=== PATIENT | female | born 1965 | race Two or more races ===

== ENCOUNTER 2021-04-08 11:09 | Outpatient (REF) | payer BC, SELFPAY ==
[2021-04-08 13:28] LABS: MANUAL DIFF FLAG NO
[2021-04-08 13:41] LABS: Basophils Absolute Auto 0.1 X10*3/uL (0.0-0.2); Basophils Percent Auto 0.6 % (0-2); Eosinophils Absolute Auto 0.3 X10*3/uL (0.0-0.4); Eosinophils Percent Auto 3.6 % (0-4); Hematocrit 40.9 % (37-47); Hemoglobin 12.9 g/dl (12.0-16.0); Imm Gran Abs Auto 0.02 X10*3/uL (0.00-0.03); Imm Gran Pct Auto 0.2 % (0.0-0.4); Lymphocytes Absolute Auto 2.2 X10*3/uL (1.2-4.9); Lymphocytes Percent Auto 24.6 % (20-40); Mean Corpuscular HGB Conc 31.5 g/dl (31.0-35.0); Mean Corpuscular Hemoglobin 25.7 pg (27.0-33.0); Mean Corpuscular Volume 81.6 fL (80-98); Mean Platelet Volume 10.1 fL (9.4-12.3); Monocytes Absolute Auto 0.4 X10*3/uL (0.1-1.2); Monocytes Percent Auto 4.7 % (2-11); Neutrophils Absolute Auto 5.9 X10*3/uL (2.0-8.3); Neutrophils Percent Auto 66.3 % (45-73); Platelet Count 443 X10*3/uL (160-400); Red Blood Count 5.01 X10*6/uL (4.20-5.50); Red Cell Distribution Width 14.5 % (11.0-16.0); White Blood Count 8.9 X10*3/uL (4.8-10.8)
[2021-04-08 13:44] LABS: Alanine Aminotransferase 13 U/L (0-31); Anion Gap 11 (12-20); Aspartate Amino Transferase 14 U/L (5-31); Blood Urea Nitrogen 8 mg/dL (9-16); Calcium 9.2 mg/dL (8.4-10.2); Carbon Dioxide 27 mmol/L (22-29); Chloride 105 mmol/L (96-108); Cholesterol 146 mg/dL; Estimated Glomerular Filt Rate > 60; Glucose Fasting 122 mg/dL (60-99); HDL Cholesterol 55 mg/dL; Iron 51 mcg/dL (30-160); LDL Cholesterol Calculated 68 mg/dl; Percent Iron Saturation 17 % (15-50); Potassium 4.3 mmol/L (3.3-5.1); Sodium 139 mmol/L (135-145); Total Iron Binding Capacity 301 mcg/dL (228-428); Triglycerides 119 mg/dL; Unsaturated Iron Binding 250 ug/dL
[2021-04-08 13:50] LABS: Creatinine Urine 130.37 mg/dL; Microalbum/Creatinine Ratio Ur 3.8 ug/mg cr
[2021-04-08 14:05] LABS: TSH reflex Free T4 0.11 uIU/mL (0.32-4.0); Vitamin D 25-OH Total 6.9 ng/mL (>30)
[2021-04-08 15:31] LABS: Free T4 (Free Thyroxine) 1.05 ng/dL (0.71-1.85)
== END 2021-04-08 11:10 | disposition home or self-care (01) ==
LOC: HO.HMGCLDS 11:09
PROVIDERS: PCP Internal Medicine; Visit Provider Internal Medicine
DX: I10 Essential (primary) hypertension (principal); E66.9 Obesity, unspecified; E78.00 Pure hypercholesterolemia, unspecified; E11.9 Type 2 diabetes mellitus without complications; D50.9 Iron deficiency anemia, unspecified; R25.1 Tremor, unspecified
CPT/HCPCS: 36415; 80048; 80061; 82043; 82306; 83540; 84439; 84443; 84450; 84460; 85025

== ENCOUNTER 2021-04-11 06:57 | Outpatient (REF) | payer BC, SELFPAY | END 2021-04-11 06:58 | disposition home or self-care (01) | LOC: HO.HMGCLDS 06:57 | PROVIDERS: PCP Internal Medicine; Visit Provider Internal Medicine | DX: Z20.822 Contact with and (suspected) exposure to COVID-19 (principal) | CPT/HCPCS: C9803; U0003; U0005 ==

== ENCOUNTER 2021-06-09 15:37 | Outpatient (REF) | payer BC, SELFPAY ==
--- NOTE | ~2021-06-09 | MM_ITS ---
EXAMINATION: MM SCREENING DIGITAL BREAST TOMOSYNTHESIS, BILATERAL CLINICAL INFORMATION: Screening. Asymptomatic. The lifetime risk of breast cancer based on the Tyrer-Cuzick Model is 11%. COMPARISON: Mammography: 09/03/2018, 03/27/2017 TECHNIQUE: Digital breast tomosynthesis is performed in both the craniocaudal and mediolateral oblique views along with computer-aided detection (CAD). Synthesized 2D images are generated from the tomosynthesis. Additional right MLO view is provided. FINDINGS: There are scattered areas of fibroglandular density (ACR BI-RADS breast composition Category b). There are no significant masses, abnormal calcifications, or other abnormalities. Parenchymal pattern is similar to prior studies. No developing density. No significant changes. The axilla and skin contours are unremarkable. MM/MM tomosynthesis screening BI IMPRESSION: No mammographic evidence of malignancy. ASSESSMENT: BI-RADS 1: Negative RECOMMENDATION: Routine annual mammography screening. This patient's information was entered into a reminder system with a target due date for their next mammogram.
== END 2021-06-09 15:38 | disposition home or self-care (01) ==
LOC: HO.MAMMO 15:37
PROVIDERS: Visit Provider Internal Medicine
DX: Z12.31 Encounter for screening mammogram for malignant neoplasm of breast (principal)
CPT/HCPCS: 77063; 77067

== ENCOUNTER 2021-12-29 13:14 | Outpatient (REF) | payer BC, SELFPAY ==
[2021-12-29 14:17] LABS: Influenza A PCR NEGATIVE (Negative); Influenza B PCR NEGATIVE (Negative); Resp Syncy Virus RNA Qual PCR NEGATIVE (Negative); SARS COV2 PCR INHOUSE NEGATIVE (Negative)
== END 2021-12-29 13:15 | disposition home or self-care (01) ==
LOC: HO.LNP 13:14
PROVIDERS: Visit Provider Physician Assistant Medical
DX: Z20.822 Contact with and (suspected) exposure to COVID-19 (principal); R05.9 Cough, unspecified
CPT/HCPCS: 0241U

== ENCOUNTER 2022-02-27 07:00 | Outpatient (REF) | payer BC, SELFPAY ==
[2022-02-27 12:04] LABS: Alanine Aminotransferase 22 U/L (0-31); Anion Gap 13 (12-20); Aspartate Amino Transferase 17 U/L (5-31); Blood Urea Nitrogen 11 mg/dL (9-16); Calcium 9.2 mg/dL (8.4-10.2); Carbon Dioxide 25 mmol/L (22-29); Chloride 105 mmol/L (96-108); Cholesterol 141 mg/dL; Estimated Glomerular Filt Rate > 60; Glucose Fasting 148 mg/dL (60-99); HDL Cholesterol 48 mg/dL; LDL Cholesterol Calculated 74 mg/dl; Potassium 4.3 mmol/L (3.3-5.1); Sodium 139 mmol/L (135-145); Triglycerides 98 mg/dL
[2022-02-27 12:14] LABS: Vitamin D 25-OH Total 22.4 ng/mL (>30)
[2022-02-27 12:32] LABS: Creatinine Urine 156.81 mg/dL; Microalbum/Creatinine Ratio Ur 8.9 ug/mg cr
== END 2022-02-27 07:01 | disposition home or self-care (01) ==
LOC: HO.HMGCLDS 07:00
PROVIDERS: PCP Internal Medicine; Visit Provider Internal Medicine
DX: E11.65 Type 2 diabetes mellitus with hyperglycemia (principal); E55.9 Vitamin D deficiency, unspecified; E66.9 Obesity, unspecified; I10 Essential (primary) hypertension
CPT/HCPCS: 36415; 80048; 80061; 82043; 82306; 84450; 84460

== ENCOUNTER 2022-06-12 06:56 | Outpatient (REF) | payer BC, SELFPAY ==
[2022-06-12 12:07] LABS: Creatinine Urine 115.02 mg/dL
[2022-06-12 14:09] LABS: Alanine Aminotransferase 24 U/L (0-31); Anion Gap 10 (12-20); Aspartate Amino Transferase 18 U/L (5-31); Blood Urea Nitrogen 10 mg/dL (9-16); Carbon Dioxide 27 mmol/L (22-29); Chloride 108 mmol/L (96-108); Cholesterol 139 mg/dL; Estimated Glomerular Filt Rate > 60; Glucose Fasting 169 mg/dL (60-99); HDL Cholesterol 48 mg/dL; LDL Cholesterol Calculated 71 mg/dl; Potassium 4.1 mmol/L (3.3-5.1); Sodium 141 mmol/L (135-145); Triglycerides 103 mg/dL; Vitamin D 25-OH Total 26.3 ng/mL (>30)
[2022-06-13 05:23] LABS: Estimated Average Glucose 160 mg/dL; Hemoglobin A1c % 7.2 %
== END 2022-06-12 06:57 | disposition home or self-care (01) ==
LOC: HO.HMGCLDS 06:56
PROVIDERS: PCP Internal Medicine; Visit Provider Internal Medicine
DX: E11.65 Type 2 diabetes mellitus with hyperglycemia (principal); E55.9 Vitamin D deficiency, unspecified; E78.00 Pure hypercholesterolemia, unspecified; I10 Essential (primary) hypertension
CPT/HCPCS: 36415; 80048; 80061; 82043; 82306; 83036; 84450; 84460

== ENCOUNTER 2022-07-17 15:10 | Outpatient (REF) | payer BC, SELFPAY ==
--- NOTE | ~2022-07-17 | MM_ITS ---
EXAMINATION: MM SCREENING DIGITAL BREAST TOMOSYNTHESIS, BILATERAL CLINICAL INFORMATION: Screening. Asymptomatic. The lifetime risk of breast cancer based on the Tyrer-Cuzick Model is 9%. COMPARISON: Mammography: 06/09/2021, 07/03/2019, 03/29/2017; outside mammography 12/18/2014 ([facility]). TECHNIQUE: Digital breast tomosynthesis is performed in both the craniocaudal and mediolateral oblique views along with computer-aided detection (CAD). Synthesized 2D images are generated from the tomosynthesis. Additional right MLO view is provided. FINDINGS: There are scattered areas of fibroglandular density (ACR BI-RADS breast composition Category b). Left breast parenchymal pattern is similar to prior studies and there is no interval mass or developing density or architectural abnormality. Neither breast shows abnormal calcifications. The axilla and skin contours are unremarkable. There is parenchymal asymmetry central 9:30 right breast, more conspicuous on current exam, likely related to incompletely compressed glandular tissue and/or summation artifact. Patient will be recalled to obtain additional images to confirm probable chronic stability. MM/MM tomosynthesis screening BI IMPRESSION: Right: -Parenchymal asymmetry central 9:30, more conspicuous on current study. Suspect incompletely compressed glandular tissue and/or summation artifact. Left: -No mammographic evidence of malignancy. ASSESSMENT: BI-RADS 0: Incomplete - Need Additional Imaging Evaluation RECOMMENDATION: 1. Additional views of the right breast (spot CC, spot MLO, standard ML). 2. Targeted ultrasound if warranted after review of the additional views. 3. Radiology department staff will contact the patient for additional imaging. This patient's information was entered into a reminder system with a target due date for their next mammogram.
== END 2022-07-17 15:11 | disposition home or self-care (01) ==
LOC: HO.MAMMO 15:10
PROVIDERS: PCP Internal Medicine; Visit Provider Internal Medicine
DX: Z12.31 Encounter for screening mammogram for malignant neoplasm of breast (principal)
CPT/HCPCS: 77063; 77067

== ENCOUNTER 2022-07-24 08:46 | Outpatient (REF) | payer BC, SELFPAY ==
--- NOTE | ~2022-07-24 | MM_ITS ---
EXAMINATION: MM DIAGNOSTIC DIGITAL BREAST TOMOSYNTHESIS, RIGHT US DIAGNOSTIC ULTRASOUND BREAST, RIGHT CLINICAL INFORMATION: Recall from screening for question of parenchymal asymmetry developing density central 9:30 right breast. COMPARISON: Mammography: 07/17/2022, 06/09/2021, 09/03/2018 TECHNIQUE: Digital breast tomosynthesis is performed. 2D images are generated from the tomosynthesis. The following views are obtained: Spot CC, spot MLO, ML, rolled ML x2. Ultrasound right breast is targeted to the outer breast. Grayscale imaging and color Doppler are performed without and with harmonics. FINDINGS: There are scattered areas of fibroglandular density (ACR BI-RADS breast composition Category b). There are scattered shifting fibroglandular parenchymal densities related to variation in positioning. There is no consistent three dimensional mass, definite developing density, or definite focal parenchymal asymmetric density. No architectural abnormality. Ultrasound right breast demonstrates no cystic or solid mass or architectural abnormality or focal duct ectasia. There is scattered nonfocal shadowing. Results are discussed with the patient at time of visit. There is no reproducible mammographic finding to suggest interval change from prior exams. No focal ultrasound abnormality. As a precaution, short interval six-month follow-up right diagnostic mammography will be requested. MM/MM tomosynthesis added views R IMPRESSION: 1. Additional views show no mass or definite developing density. 2. Unremarkable targeted right breast ultrasound. ASSESSMENT: BI-RADS 3: Probably Benign RECOMMENDATION: Diagnostic right mammography in 6 months. This patient's information was entered into a reminder system with a target due date for their next mammogram.
== END 2022-07-24 08:47 | disposition home or self-care (01) ==
LOC: HO.MAMMO 08:46
PROVIDERS: PCP Internal Medicine; Visit Provider Internal Medicine
DX: R92.2 Inconclusive mammogram (principal)
CPT/HCPCS: 76642; 77061; 77065

== ENCOUNTER 2022-09-11 06:46 | Outpatient (REF) | payer BC, SELFPAY ==
[2022-09-11 11:59] LABS: Alanine Aminotransferase 21 U/L (0-31); Anion Gap 12 (12-20); Aspartate Amino Transferase 16 U/L (5-31); Blood Urea Nitrogen 15 mg/dL (9-16); Calcium 9.2 mg/dL (8.4-10.2); Carbon Dioxide 26 mmol/L (22-29); Chloride 105 mmol/L (96-108); Cholesterol 159 mg/dL; Estimated Glomerular Filt Rate > 60; Glucose Fasting 146 mg/dL (60-99); HDL Cholesterol 53 mg/dL; LDL Cholesterol Calculated 86 mg/dl; Potassium 4.4 mmol/L (3.3-5.1); Sodium 139 mmol/L (135-145); Triglycerides 103 mg/dL
[2022-09-11 12:07] LABS: Estimated Average Glucose 169 mg/dL; Hemoglobin A1c % 7.5 %
[2022-09-11 12:19] LABS: Vitamin D 25-OH Total 17.8 ng/mL (>30)
[2022-09-11 13:35] LABS: Creatinine Urine 96.23 mg/dL; Microalbumin Urine < 5.0 mg/L
== END 2022-09-11 06:47 | disposition home or self-care (01) ==
LOC: HO.HMGCLDS 06:46
PROVIDERS: PCP Internal Medicine; Visit Provider Internal Medicine
DX: E11.65 Type 2 diabetes mellitus with hyperglycemia (principal); E55.9 Vitamin D deficiency, unspecified; I10 Essential (primary) hypertension; E78.00 Pure hypercholesterolemia, unspecified; E66.9 Obesity, unspecified
CPT/HCPCS: 36415; 80048; 80061; 82043; 82306; 83036; 84450; 84460

== ENCOUNTER 2022-12-19 07:17 | Outpatient (REF) | payer BC, SELFPAY ==
[2022-12-19 11:48] LABS: Estimated Average Glucose 137 mg/dL; Hemoglobin A1c % 6.4 %
[2022-12-19 11:50] LABS: Alanine Aminotransferase 81 U/L (0-31); Anion Gap 13 (12-20); Aspartate Amino Transferase 62 U/L (5-31); Blood Urea Nitrogen 10 mg/dL (9-16); Calcium 9.6 mg/dL (8.4-10.2); Carbon Dioxide 26 mmol/L (22-29); Chloride 106 mmol/L (96-108); Cholesterol 134 mg/dL; Estimated Glomerular Filt Rate > 60; Glucose Fasting 136 mg/dL (60-99); HDL Cholesterol 49 mg/dL; LDL Cholesterol Calculated 65 mg/dl; Potassium 4.1 mmol/L (3.3-5.1); Sodium 141 mmol/L (135-145); Triglycerides 100 mg/dL
[2022-12-19 12:13] LABS: Vitamin D 25-OH Total 58.7 ng/mL (>30)
== END 2022-12-19 07:18 | disposition home or self-care (01) ==
LOC: HO.HMGCLDS 07:17
PROVIDERS: PCP Internal Medicine; Visit Provider Internal Medicine
DX: E11.65 Type 2 diabetes mellitus with hyperglycemia (principal); E55.9 Vitamin D deficiency, unspecified; E66.9 Obesity, unspecified; E78.00 Pure hypercholesterolemia, unspecified; I10 Essential (primary) hypertension
CPT/HCPCS: 36415; 80048; 80061; 82306; 83036; 84450; 84460

== ENCOUNTER 2023-05-03 06:52 | Outpatient (REF) | payer BC, SELFPAY ==
[2023-05-03 11:50] LABS: Estimated Average Glucose 148 mg/dL; Hemoglobin A1c % 6.8 % (<6.0)
[2023-05-03 12:05] LABS: Alanine Aminotransferase 15 U/L (0-31); Anion Gap 13 (12-20); Aspartate Amino Transferase 17 U/L (5-31); Blood Urea Nitrogen 11 mg/dL (9-16); Calcium 9.1 mg/dL (8.4-10.2); Carbon Dioxide 24 mmol/L (22-29); Chloride 107 mmol/L (96-108); Cholesterol 141 mg/dL (<200); Estimated Glomerular Filt Rate > 60; Glucose Fasting 129 mg/dL (60-99); HDL Cholesterol 48 mg/dL (>40); LDL Cholesterol Calculated 67 mg/dL (<100); Sodium 140 mmol/L (135-145); Triglycerides 132 mg/dL (<150)
== END 2023-05-03 06:53 | disposition home or self-care (01) ==
LOC: HO.HMGCLDS 06:52
PROVIDERS: PCP Internal Medicine; Visit Provider Internal Medicine
DX: E11.65 Type 2 diabetes mellitus with hyperglycemia (principal); I10 Essential (primary) hypertension; E78.00 Pure hypercholesterolemia, unspecified
CPT/HCPCS: 36415; 80048; 80061; 83036; 84450; 84460

== ENCOUNTER 2023-05-23 14:38 | Outpatient (AMB) | payer BC, SELFPAY ==
[2023-05-23 14:51] VITALS: BP 118/74; PULSE 84; O2SAT 99; BMI 36.0
--- NOTE | 2023-05-23 14:51 | MHC.PC.OV ---
Vital Signs 05/23/23 14:51 Height 5 ft 5 in Weight 216 lb 8 oz BMI 36.0 BP 118/74 Blood Pressure Location Lt brachial Position Sitting Pulse 84 Pulse Source Pulse Oximeter Pulse Oximetry (%) 99 Oxygen Delivery Method Room Air Intake Visit Reasons: Follow-up diabetes mellitus, lipids Intake Note: pt is here to go over her lab results pt would like her flu vaccine but pt is still sick please advise Allergies No Known Allergies [No Known Allergies*] Allergy (Verified 08/15/23 08:49) Medication List - Last Reconciled 05/23/23 by Charisse Portillo MD cholecalciferol (vitamin D3) 1,250 mcg PO QWEEK 3 months clobetasol 0.05% grams topical dapagliflozin propanediol (Farxiga) 10 mg PO QAM lisinopril 2.5 mg PO DAILY metformin 1,000 mg PO BID 90 days semaglutide 0.5 mg (0.374 mL) subcut QWEEK NS simvastatin 5 mg PO QPM Tobacco use date assessed: 05/23/23 Dental Screening Dental Screen Date: 05/23/23 Did you have a dental visit in the last 12 months?: Yes Did you have a dental problem in the last 6 months where you did not have access to dental care?: No Was dental information given to patient?: Patient has dentist HPI Follow-up diabetes mellitus, lipids HPI Details 57-year-old lady here today for follow-up on her diabetes mellitus and hyperlipidemia. Currently taking Farxiga and metformin and was started recently on semaglutide 0.5 mg weekly, in addition to simvastatin 5 mg at bedtime. She has been compliant with taking her medications and has been following recommended diet. Latest fasting labs showed hemoglobin A1c at 6.8%, and fasting lipids are within normal limits. [facility] Medical History (Updated 08/15/23 @ 09:30 by Charisse Portillo MD) Type 2 diabetes mellitus without complication, with no history of insulin use Post-COVID chronic cough History of COVID-19 Right knee pain Lumbago syndrome Androgenetic alopecia Diabetes mellitus with hyperglycemia, without long-term current use of insulin Vitamin D deficiency Essential hypertension Rash of face Iron deficiency anemia Obesity (BMI 30-39.9) Hypercholesterolemia Surgical History Hx of cholecystectomy Hx of tubal ligation Family History Maternal Uncle Substance use disorder Maternal Grandmother Lung cancer Mother CVA (cerebral vascular accident) Social History Housing: House Patient Tobacco Use Status: Never used Tobacco e-Cigarette/Vaping Use: Never Used Second Hand Smoke Exposure: No service: No Current occupational status: employed Cognitive needs: No Hearing needs: No Vision needs: Yes Questionnaire Thrive Questionnaire Date Thrive assessed: 09/12/22 OMKAR-7 AMB Questionnaire OMKAR-7 Date OMKAR - 7 assessed: 09/12/22 Source: Developed by Drs. Hernan Barraza, Lina Chavarria, Brandon Prince and colleagues, with an educational sandra from [employer]. Review of Systems Const Denies body aches, Denies fever(s), Denies headache(s) and Denies weakness Eyes Details: Up-to-date with her diabetes retinopathy screening, goes [facility] Denies change in vision ENT Denies dizziness, Denies headache(s) and Denies nasal congestion Card Denies chest pain, Denies lightheadedness, Denies palpitations and Denies dyspnea Resp Denies dyspnea GI Denies abdominal pain, Denies change in bowel habits and Denies heartburn Denies urinary frequency, Denies dysuria and Denies urinary urgency Musc Reports no additional complaints Skin/Breast Reports as per HPI Neuro Denies dizziness, Denies headache(s) and Denies weakness Endo Denies palpitations Miki/Lymph Denies easy bruising Aller/Immun Denies seasonal rhinorrhea Physical exam (Primary Care) Vital Signs: Last Vital Signs Pulse 84 05/23/23 14:51 BP 118/74 05/23/23 14:51 Pulse Ox 99 05/23/23 14:51 Oxygen Delivery Method Room Air 05/23/23 14:51 BMI result Body Mass Index 36.0 BMI Assessment/Plan discussion: High BMI High, discussed plan: lifestyle, weight reduction, dietary and physical activity Tobacco/Smoking Status: Tobacco use Status Tobacco use date assessed 05/23/23 05/23/23 14:59 Patient Tobacco Use Status Never used Tobacco 05/23/23 14:51 e-Cigarette/Vaping Use Never Used 05/23/23 14:51 Thrive Assessment: Date of Thrive Assessment Date Thrive assessed 09/12/22 05/23/23 14:51 Const General: comfortable and no acute distress Orientation/consciousness: patient oriented x3 Limitations: no limitations HENMT Ears: hearing grossly normal bilaterally, external ears normal, TM's normal bilaterally and EAC's normal General nose exam: Normal external nose present and No nasal discharge present Mouth: oropharynx normal and moist mucous membranes Eyes General: appearance normal, both eyes and all related structures Conjunctivae: conjunctivae normal Pupils: Equal, round and reactive pupils present EOM: EOMs intact bilaterally Neck Neck: Yes full ROM, Yes no lymphadenopathy and Yes supple Resp Effort & Inspection: normal respiratory effort and able to speak in complete sentences Auscultation: clear to auscultation bilaterally Cardio Rate: regular rate Rhythm: regular rhythm Heart sounds: S1 normal heart sound present and S2 normal heart sound present GI Inspection: Yes normal to inspection Palpation (GI): Soft to palpation, nontender and no masses Auscultation: normal bowel sounds Neuro General: patient oriented x3, gait normal, tone normal, moves all extremities, Normal light touch and pain sensation and no focal motor deficits Cranial nerves: Yes Equal, round and reactive pupils present Cognition (Neuro): normal cognition Gait exam (Neuro): Normal gait present Motor exam (neuro): 5/5 motor strength present throughout Extrem Other: Slight puffiness over right lateral malleolus, nontender General: Yes full ROM, Yes no calf tenderness and Yes normal gait Right lower extremity: knee (Positive crepitus right knee) Details: normal ROM and other Office Procedures Flu Questionnaire Does the patient have a severe egg allergy?: No Does the patient have severe life threatening allergies?: No Does the patient have a fever or illness today?: No Has the patient ever had Guillain-Laclede Syndrome?: No Has the patient ever had any past reaction to a flu shot?: No Immunizations flu vacc [id number] 6mos up(PF) 60 mcg(15 mcgx4)/0.5 mL IM syringe Performing Provider: Charisse Portillo MD Performing Location: [facility] [place] [facility] Administered by: Anna Munoz CMA on 05/23/23 15:43 Dose Route Admin Location Dispensed Lot Number Expiration Date NDC Provider Scribe 0.5 mL IM Left Deltoid 0.5 mL [id number] 01/05/24 49623-829-20 [employer] VIS Given Date VIS Provided VIS Publication Date 05/23/23 Single Vaccine 21 Eligibility Eligibility Date Funding Source Not VFC Eligible 05/23/23 Private Results Reviewed Results Reviewed: NTERED: 05/03/23-[address]: ORDERED: Met Prof Fast, AST, ALT, Lipid Panel Test Result Flag Reference Site Sodium 140 135-145 mmol/L Potassium 4.0 3.3-5.1 mmol/L CL 107 96-108 mmol/L CO2 24 22-29 mmol/L Gap 13 12-20 BUN 11 9-16 mg/dL Creat 0.75 0.5-1.4 mg/dL EGFR > 60 NOTE: For -Turkmen individuals, multiply the result by 1.210. Chronic Kidney Disease: Estimated GFR < 60 mL/min/1.73m2 Severe Kidney Disease: Estimated GFR < 15 mL/min/1.73m2 FBS 129 H 60-99 mg/dL A fasting glucose of 126 mg/dl or greater on more than one occasion is considered diagnostic of diabetes. CA 9.1 8.4-10.2 mg/dL AST (GOT) 17 5-31 U/L ALT (GPT) 15 0-31 U/L Triglyceride 132 <150 mg/dL Desirable Triglyceride: less than 150 mg/dL Borderline High Triglyceride 150-199 mg/dL High Triglyceride: 200-499 mg/dL Very High Triglyceride: greater than or equal to 5OO mg/dL Cholesterol 141 <200 mg/dL Desirable Cholesterol: less than 200 mg/dL Borderline High Cholesterol: 200-239 mg/dL High Cholesterol: greater than 239 mg/dL LDL Calculated 67 <100 mg/dL Desirable LDL: less than 100 mg/dL Near Optimal/Above Optimal LDL: 110-129 mg/dL Borderline High LDL: 130-159 mg/dL High LDL: 160-189 mg/dL Very High LDL: greater than or equal to 190 mg/dL HDL 48 >40 mg/dL Desirable HDL: greater than 40 mg/dL Note: This HDL assay may give artificially low results in patients with liver disease. Laboratory Tests 05/03/23 06:58 Estimat Average Glucose 148 Hemoglobin A1c % 6.8 H Assessment and Plan Assessment & Plan (1) Type 2 diabetes mellitus without complication, with no history of insulin use: Code(s): E11.9 - Type 2 diabetes mellitus without complications Plan: Recent lab results reviewed with patient, with sugar and hemoglobin A1c stable and at goal at 6.3%. Will continue on present treatment and advised to continue checking fasting blood sugar at home at least once a day., maintain log and bring to next appointment for review. Reinforced diabetic diet and regular exercise with patient. Counseled regarding importance of yearly diabetes retinopathy screening, currently up-to-date. Patient advised to inspect feet daily, for any signs of injury, callus or infection. Compliance with diet and regular exercise again stressed. Blood pressure goal is less than 130/80, goal LDL is less than 100 and goal hemoglobin A1c is less than 7% follow-up appointment made in-3--months, after fasting labs done. (2) Hypercholesterolemia: Code(s): E78.00 - Pure hypercholesterolemia, unspecified Plan: Reviewed recent fasting lipid profile with patient with levels within normal limits . Continue with simvastatin 5 mg at bedtime , in addition to adherence to low-cholesterol diet and regular exercise, at least 30 minutes 3 to 4 times a week. Advised patient to make healthy food choices, eat more fruits, vegetables, whole grains, wild caught fish and low-fat dairy. Limit amount of meat and fried or fatty food products, as well as processed foods and fast foods. Follow-up scheduled with repeat fasting lipid panel in 3 months. (3) Essential hypertension: Code(s): I10 - Essential (primary) hypertension Plan: Blood pressure at goal of less than 130/80. Continue with current medication. Reinforced importance of following a low sodium diet, getting regular exercise, and lowering stress levels. (4) Obesity (BMI 30-39.9): Code(s): E66.9 - Obesity, unspecified Plan: Discussed need to increase activity and weight reduction. Currently on semaglutide with no significant weight loss seen. Eat slowly, pay attention to portion sizes, plan your meals ahead of time, start regular physical activity, at least 150 minutes of moderate intensity exercise, or 90 minutes per week of vigorous exercise. Keeping a food diary, tracking what you eat and your physical activity can help assess what improvements you can make. There are many health problems associated with being overweight/obese, so it is important to improve your diet and exercise. (5) Needs flu shot: Code(s): Z23 - Encounter for immunization Plan: Flu vaccine given today Orders: Orders Lipid Panel 08/04/23 E11.9 - Type 2 diabetes mellitus without complications, E55.9 - Vitamin D deficiency, unspecified, I10 - Essential (primary) hypertension, E66.9 - Obesity, unspecified, E78.00 - Pure hypercholesterolemia, unspecified Aspartate Amino Transferase 08/04/23 E11.9 - Type 2 diabetes mellitus without complications, E55.9 - Vitamin D deficiency, unspecified, I10 - Essential (primary) hypertension, E66.9 - Obesity, unspecified, E78.00 - Pure hypercholesterolemia, unspecified Basic Metabolic Panel Fasting 08/04/23 E11.9 - Type 2 diabetes mellitus without complications, E55.9 - Vitamin D deficiency, unspecified, I10 - Essential (primary) hypertension, E66.9 - Obesity, unspecified, E78.00 - Pure hypercholesterolemia, unspecified Vitamin D 25-OH Total 08/04/23 E11.9 - Type 2 diabetes mellitus without complications, E55.9 - Vitamin D deficiency, unspecified, I10 - Essential (primary) hypertension, E66.9 - Obesity, unspecified, E78.00 - Pure hypercholesterolemia, unspecified Hemoglobin A1c 08/04/23 E11.9 - Type 2 diabetes mellitus without complications, E55.9 - Vitamin D deficiency, unspecified, I10 - Essential (primary) hypertension, E66.9 - Obesity, unspecified, E78.00 - Pure hypercholesterolemia, unspecified Alanine Aminotransferase 08/04/23 E11.9 - Type 2 diabetes mellitus without complications, E55.9 - Vitamin D deficiency, unspecified, I10 - Essential (primary) hypertension, E66.9 - Obesity, unspecified, E78.00 - Pure hypercholesterolemia, unspecified Influenza [id number] Immunization 05/23/23 Z23 - Encounter for immunization Medications: Changed From metformin call to schedule PCP appt for more refills 1,000 mg PO BID 90 days 180 tabs 3RF To metformin call to schedule PCP appt for more refills 1,000 mg PO BID 180 tabs 3RF 90 days From semaglutide 0.5 mg (0.374 mL) subcut QWEEK 4.5 mL 1RF NS E11.9 - Type 2 diabetes mellitus without complications To semaglutide 0.5 mg (0.374 mL) subcut QWEEK 6 mL 3RF 30 days NS E11.9 - Type 2 diabetes mellitus without complications Refilled simvastatin 5 mg PO QPM 90 tabs 3RF dapagliflozin propanediol (Farxiga) 10 mg PO QAM 90 tabs 3RF E11.65 - Type 2 diabetes mellitus with hyperglycemia lisinopril 2.5 mg PO DAILY 90 tabs 3RF Coding Level of Care Code Est Pt Level 4 (75021) Diagnoses Type 2 diabetes mellitus without complication, with no history of insulin use E11.9 Hypercholesterolemia E78.00 Essential hypertension I10 Obesity (BMI 30-39.9) E66.9 Needs flu shot Z23
== END 2023-05-23 15:50 | disposition home or self-care (01) ==
PROVIDERS: PCP Internal Medicine; Visit Provider Internal Medicine
DX: E11.9 Type 2 diabetes mellitus without complications (principal); E66.9 Obesity, unspecified; Z68.36 Body mass index [BMI] 36.0-36.9, adult; Z23 Encounter for immunization; E78.00 Pure hypercholesterolemia, unspecified; I10 Essential (primary) hypertension
CPT/HCPCS: 90471; 90686; 99214

== ENCOUNTER 2023-08-15 08:26 | Outpatient (AMB) | payer BC, SELFPAY ==
[2023-08-15 08:35] VITALS: BP 118/70; PULSE 73; O2SAT 97; BMI 36.1
--- NOTE | 2023-08-15 08:35 | MHC.PC.OV ---
Vital Signs 08/15/23 08:35 Height 5 ft 5 in Weight 217 lb BMI 36.1 BP 118/70 Blood Pressure Location Lt brachial Position Sitting Pulse 73 Pulse Source Pulse Oximeter Pulse Oximetry (%) 97 Oxygen Delivery Method Room Air Intake Visit Reasons: Annual PE Intake Note: Pt is here today for her PE: Last mammogram 07/24/22, cologuard 06/04/22: pt states had a papsmear last year at [facility] Allergies No Known Allergies [No Known Allergies*] Allergy (Verified 08/15/23 08:49) Medication List - Last Reconciled 08/15/23 by Charisse Portillo MD cholecalciferol (vitamin D3) 1,250 mcg PO QWEEK 3 months clobetasol 0.05% grams topical dapagliflozin propanediol (Farxiga) 10 mg PO QAM lisinopril 2.5 mg PO DAILY metformin 1,000 mg PO BID 90 days semaglutide 0.5 mg (0.374 mL) subcut QWEEK 30 days NS simvastatin 5 mg PO QPM Tobacco use date assessed: 08/15/23 Dental Screening Dental Screen Date: 08/15/23 Did you have a dental visit in the last 12 months?: Yes Did you have a dental problem in the last 6 months where you did not have access to dental care?: No Was dental information given to patient?: Patient has dentist HPI Annual PE HPI Details 57-year-old lady here today for physical exam. She had her last mammogram a year ago, and had Cologuard testing done in 2021 with negative findings. Patient also had her last Pap smear done at [facility] a year ago. She has hypertension, currently stable and controlled on lisinopril 2.5 mg daily. Has diabetes mellitus currently on Farxiga, metformin and Ozempic. Hemoglobin A1c today is 7.1%. Patient states that she has been compliant with taking her medications, and has been following recommended diet but admits to not getting much exercise this past few months. She is up-to-date with her diabetes retinopathy screening , goes to [facility] eye care . Takes simvastatin for hyperlipidemia Complains of intermittent pain and stiffness in left upper back radiating to left shoulder . Has been applying warm compresses, which affords only temporary relief.. [facility] Medical History (Updated 08/15/23 @ 09:30 by Charisse Portillo MD) Type 2 diabetes mellitus without complication, with no history of insulin use Post-COVID chronic cough History of COVID-19 Right knee pain Lumbago syndrome Androgenetic alopecia Diabetes mellitus with hyperglycemia, without long-term current use of insulin Vitamin D deficiency Essential hypertension Rash of face Iron deficiency anemia Obesity (BMI 30-39.9) Hypercholesterolemia Surgical History Hx of cholecystectomy Hx of tubal ligation Family History Maternal Uncle Substance use disorder Maternal Grandmother Lung cancer Mother CVA (cerebral vascular accident) Social History Housing: House Patient Tobacco Use Status: Never used Tobacco e-Cigarette/Vaping Use: Never Used Second Hand Smoke Exposure: No service: No Current occupational status: employed Cognitive needs: No Hearing needs: No Vision needs: Yes Questionnaire PHQ-9 Over the last 2 weeks, how often have you been bothered by any of the following problems? 1. Little interest or pleasure in doing things: not at all 2. Feeling down, depressed, or hopeless: not at all 3. Trouble falling or staying asleep, or sleeping too much: not at all 4. Feeling tired or having little energy: not at all 5. Poor appetite or overeating: not at all 6. Feeling bad about yourself - or that you are a failure or have let yourself or your family down: not at all 7. Trouble concentrating on things, such as reading the newspaper or watching television: not at all 8. Moving or speaking so slowly that other people could have noticed. Or the opposite - being so fidgety or restless that you have been moving around a lot more than usual: not at all 9. Thoughts that you would be better off or of hurting yourself in some way: not at all Total score: 0 Depression Screening Interpretation: Negative Depression Screening Done: Yes 35168 - PHQ-9 Billing: Yes Source: Developed by Drs. Hernan Barraza, Lina Chavarria, Brandon Prince and colleagues, with an educational sandra from [employer]. Thrive Questionnaire Date Thrive assessed: 08/15/23 I am a: Patient What is your living situation today?: I have a steady place to live Within the past 12 months, did the food you bought not last and you didn't have the money to get more?: I choose not to answer this question Within the past 12 months, did you worry whether your food would run out before you got money to buy more?: I choose not to answer this question Do you have trouble paying for medicines?: I choose not to answer this question Do you have trouble getting transportation to medical appointments?: No Do you have trouble paying your heating and electricity bill?: I choose not to answer this question Do you have trouble taking care of your child, family member or friend?: I choose not to answer this question Do you have trouble with day-to-day activities such as bathing, preparing meals, shopping, managing finances, etc.?: No Are you currently unemployed and looking for a job?: No Are you interested in more education?: No THRIVE Score: 0 AUDIT C Alcohol Use Questionnaire (AUDIT-C) 1. How often do you have a drink containing alcohol?: Monthly or less 2. How many drinks containing alcohol do you have on a typical day when you are drinking?: 1 or 2 3. How often do you have six or more drinks on one occasion?: Never Total Score: 1 OMKAR-7 AMB Questionnaire OMKAR-7 Date OMKAR - 7 assessed: 08/15/23 Feeling nervous, anxious, or on edge: 0 = Not at all Not being able to stop or control worryin = Not at all Worrying too much about different things: 0 = Not at all Trouble relaxin = Several days Being so restless that it is hard to sit still: 0 = Not at all Becoming easily annoyed or irritable: 1 = Several days Feeling afraid as if something awful might happen: 0 = Not at all Total OMKAR-7 score (0-4 normal; 5-9 mild; 10-14 moderate; 15-21 severe): 2 Source: Developed by Drs. Hernan Barraza, Lina Chavarria, Brandon Prince and colleagues, with an educational sandra from [employer]. OMKAR-7 Assessment Billing OMKAR-7 Assessment Tool: OMKAR-7 Assessment 74207 Review of Systems Const Denies fever(s), Denies headache(s) and Denies weakness Eyes Details: Up-to-date with her diabetes retinopathy screening, goes to [facility] Denies change in vision ENT Denies dizziness, Denies headache(s) and Denies nasal congestion Card Denies chest pain, Denies lightheadedness, Denies palpitations and Denies dyspnea Resp Denies dyspnea GI Denies abdominal pain, Denies change in bowel habits and Denies heartburn Denies urinary frequency, Denies nipple discharge, Denies dysuria and Denies urinary urgency Musc Reports as per HPI Skin/Breast Denies breast pain, Denies breast mass, Reports alopecia (Currently sees Dr. Leonard) and Denies nipple discharge Neuro Denies dizziness, Denies headache(s) and Denies weakness Psych Reports no additional complaints Endo Denies palpitations Miki/Lymph Denies easy bruising Aller/Immun Denies seasonal rhinorrhea Physical exam (Primary Care) Vital Signs: Last Vital Signs Pulse 73 08/15/23 08:35 BP 118/70 08/15/23 08:35 Pulse Ox 97 08/15/23 08:35 Oxygen Delivery Method Room Air 08/15/23 08:35 BMI result Body Mass Index 36.1 BMI Assessment/Plan discussion: High BMI High, discussed plan: lifestyle, weight reduction, dietary and physical activity Tobacco/Smoking Status: Tobacco use Status Tobacco use date assessed 08/15/23 08/15/23 08:36 Patient Tobacco Use Status Never used Tobacco 08/15/23 08:36 e-Cigarette/Vaping Use Never Used 08/15/23 08:36 PHQ-9: PHQ-9 Score PHQ-9: Total score 0 08/15/23 08:51 Depression Screening Interpretation: Negative Thrive Assessment: Date of Thrive Assessment Date Thrive assessed 08/15/23 08/15/23 08:43 Const General: comfortable and no acute distress Orientation/consciousness: patient oriented x3 HENMT Ears: hearing grossly normal bilaterally, external ears normal, TM's normal bilaterally and EAC's normal General nose exam: Normal external nose present and No nasal discharge present Mouth: oropharynx normal and moist mucous membranes Eyes General: appearance normal, both eyes and all related structures Conjunctivae: conjunctivae normal Pupils: Equal, round and reactive pupils present EOM: EOMs intact bilaterally Neck Neck: Yes full ROM, Yes no lymphadenopathy and Yes supple Chest Breast/axilla palpation: normal palpation of the breasts Resp Effort & Inspection: normal respiratory effort and able to speak in complete sentences Auscultation: clear to auscultation bilaterally Cardio Rate: regular rate Rhythm: regular rhythm Heart sounds: S1 normal heart sound present and S2 normal heart sound present GI Inspection: Yes normal to inspection Palpation (GI): Soft to palpation, nontender and no masses Auscultation: normal bowel sounds Back/Spine/Pelvis Other: Slight tenderness on palpation over left upper back and over left trapezius, no mass palpated Skin General skin exam: no rashes or lesions noted Neuro General: patient oriented x3, gait normal, tone normal, moves all extremities, Normal light touch and pain sensation and no focal motor deficits Cranial nerves: Yes Equal, round and reactive pupils present Cognition (Neuro): normal cognition Gait exam (Neuro): Normal gait present Motor exam (neuro): 5/5 motor strength present throughout Extrem General: Yes full ROM, Yes no calf tenderness and Yes normal gait Right lower extremity: knee (Positive crepitus right knee) Details: normal ROM and other Psych Appearance: grossly normal and well kempt Mental Status: mental status grossly normal Speech and movement: Normal speech and movement present Affect: normal affect Thought process: Normal thought process present Results AMB Hemoglobin A1c AMB Hemoglobin A1c 7.1 % Last Edit by Anusha Vargas CMA on 08/15/23 09:11 Assessment and Plan Assessment & Plan (1) Annual visit for general adult medical examination with abnormal findings: Code(s): Z00.01 - Encounter for general adult medical examination with abnormal findings Plan: Will check appropriate labs. Recommended dental visit every 6 months and regular eye exams, once a year, currently up-to-date. Take adequate calcium in diet and vitamin-D 3 at 2000 IU per cap once a day, in addition to weight-bearing exercises to help maintain good muscle tone and weight control. Instructed to do self-breast exam, and continue with yearly mammogram, currently up-to-date goes to [facility], goes to [facility] also for her routine Pap and pelvic exam, currently up-to-date has had COVID vaccines in the past, up-to-date with her flu shot, does not want to get any further COVID booster, reminded to get her 2nd dose of shingles vaccine. Reminded to get pneumonia vaccine. Had Cologuard testing done in 2021 with negative findings repeat in 2024 (2) Muscle strain of left upper back: Code(s): S29.012A - Strain of muscle and tendon of back wall of thorax, initial encounter Qualifiers: Encounter type: initial encounter Qualified Code(s): S29.012A - Strain of muscle and tendon of back wall of thorax, initial encounter Plan: Prescription sent for cyclobenzaprine 10 mg per tablet to take 1/2-1 tablet at bedtime as needed for painful muscle spasm (3) Type 2 diabetes mellitus without complication, with no history of insulin use: Code(s): E11.9 - Type 2 diabetes mellitus without complications Plan: Hemoglobin A1c today is 7.1%. Increased dose of semaglutide 1 mg subcutaneously given once weekly. Continue with metformin 1000 mg twice a day and Farxiga 10 mg daily in a.m. an hour before eating breakfast. Reinforced importance of following recommended diet and getting regular exercise, goes to [facility] for her routine eye exam yearly, sees Dr. Victoriayeericka for her diabetic foot exam yearly. Reminded to get her pneumonia vaccine, 2nd dose of shingles vaccine gets yearly flu shot, does not want to get COVID boosters (4) Androgenetic alopecia: Comment: sees Dr Leonard Code(s): L64.9 - Androgenic alopecia, unspecified Plan: Followed by Dr Leonard, was taking minoxidil (5) Essential hypertension: Code(s): I10 - Essential (primary) hypertension Plan: Blood pressure at goal of less than 130/80. Continue with current medication. Reinforced importance of following a low sodium diet, getting regular exercise, and lowering stress levels. (6) Obesity (BMI 30-39.9): Code(s): E66.9 - Obesity, unspecified Plan: Continue with healthy eating habits and advised to get regular exercise (7) Hypercholesterolemia: Code(s): E78.00 - Pure hypercholesterolemia, unspecified Plan: Fasting lipid panel ordered, continue with simvastatin 5 mg at bedtime Orders: Orders AMB Hemoglobin A1c Today E11.9 - Type 2 diabetes mellitus without complications Medications: New cyclobenzaprine 10 mg PO BEDTIME PRN 30 tabs 0RF muscle spasm Changed From semaglutide 0.5 mg (0.374 mL) subcut QWEEK 30 days 6 mL 3RF NS E11.9 - Type 2 diabetes mellitus without complications To semaglutide 1 mg (0.75 mL) subcut QWEEK 30 days 3.75 mL 3RF E11.9 - Type 2 diabetes mellitus without complications Coding Level of Care Code Est Pt Prev Care 40-64y(47402) Diagnoses Annual visit for general adult medical examination with abnormal findings Z00.01 Muscle strain of left upper back, initial encounter S29.012A Encounter type: initial encounter Type 2 diabetes mellitus without complication, with no history of insulin use E11.9 Androgenetic alopecia L64.9 Essential hypertension I10 Obesity (BMI 30-39.9) E66.9 Hypercholesterolemia E78.00 Additional Codes OMKAR-7 Assessment Billing - OMKAR-7 Assessment Tool: OMKAR-7 Assessment 69155 ([id number])
== END 2023-08-15 09:22 | disposition home or self-care (01) ==
PROVIDERS: PCP Internal Medicine; Visit Provider Internal Medicine
DX: Z00.01 Encounter for general adult medical examination with abnormal findings (principal); E11.9 Type 2 diabetes mellitus without complications; E66.9 Obesity, unspecified; S29.012A Strain of muscle and tendon of back wall of thorax, initial encounter; L64.9 Androgenic alopecia, unspecified; I10 Essential (primary) hypertension; E78.00 Pure hypercholesterolemia, unspecified
CPT/HCPCS: 83036; 99213; 99396

== ENCOUNTER 2023-08-19 06:45 | Outpatient (REF) | payer BC, SELFPAY ==
[2023-08-19 12:18] LABS: Estimated Average Glucose 148 mg/dL; Hemoglobin A1c % 6.8 % (<6.0)
[2023-08-19 13:09] LABS: Alanine Aminotransferase 15 U/L (0-31); Anion Gap 14 (12-20); Aspartate Amino Transferase 13 U/L (5-31); Blood Urea Nitrogen 13 mg/dL (9-16); Calcium 9.3 mg/dL (8.4-10.2); Carbon Dioxide 24 mmol/L (22-29); Chloride 108 mmol/L (96-108); Cholesterol 136 mg/dL (<200); Estimated Glomerular Filt Rate > 60; Glucose Fasting 135 mg/dL (60-99); HDL Cholesterol 53 mg/dL (>40); LDL Cholesterol Calculated 56 mg/dL (<100); Potassium 3.9 mmol/L (3.3-5.1); Sodium 142 mmol/L (135-145); Triglycerides 135 mg/dL (<150); Vitamin D 25-OH Total 27.6 ng/mL (>30)
== END 2023-08-19 06:46 | disposition home or self-care (01) ==
LOC: HO.HMGCLDS 06:45
PROVIDERS: PCP Internal Medicine; Visit Provider Internal Medicine
DX: E11.9 Type 2 diabetes mellitus without complications (principal); E55.9 Vitamin D deficiency, unspecified; E66.9 Obesity, unspecified; E78.00 Pure hypercholesterolemia, unspecified; I10 Essential (primary) hypertension
CPT/HCPCS: 36415; 80048; 80061; 82306; 83036; 84450; 84460

== ENCOUNTER 2023-10-29 08:03 | Outpatient (AMB) | payer BC, SELFPAY ==
[2023-10-29 08:10] VITALS: BP 130/82; PULSE 94; TEMP 36.8; O2SAT 98; BMI 34.8
--- NOTE | 2023-10-29 08:10 | AM.OFFWIN_ITS ---
Intake Vital Signs 10/29/23 08:10 Height 5 ft 5 in Weight 209 lb BMI 34.8 BP 130/82 Blood Pressure Location Lt brachial Position Sitting Pulse 94 Pulse Source Pulse Oximeter Temp 98.2 F Temp Source Oral Pulse Oximetry (%) 98 Oxygen Delivery Method Room Air Intake Visit Reasons: EP Ears, sore throat, congestion (masked) Intake Note: pt is here for sore throat, and congestion and ear pain Patient Tobacco Use Status: Never used Tobacco Allergies No Known Allergies [No Known Allergies*] Allergy (Verified 10/29/23 08:17) Medication List - Last Reconciled 10/29/23 by RENATA Rosa cholecalciferol (vitamin D3) 1,250 mcg PO QWEEK 3 months cyclobenzaprine 10 mg PO BEDTIME PRN dapagliflozin propanediol (Farxiga) 10 mg PO QAM lisinopril 2.5 mg PO DAILY metformin 1,000 mg PO BID 90 days semaglutide 1 mg (0.75 mL) subcut QWEEK 30 days simvastatin 5 mg PO QPM Do you need a note to return to daycare/school/sports/work: Yes HPI HPI Comments History of Present Illness Details Discharge patient has a 57-year-old female in today with a sick visit. Patient currently offers complaint ear pain, sore throat, cough, chills, chest congestion x4 days. Patient has used [id number] medicine with mild relief. Patient denies sick contacts. Patient denies shortness of breath, chest pain, nausea, vomiting, diarrhea. [facility] Medical History Type 2 diabetes mellitus without complication, with no history of insulin use Post-COVID chronic cough History of COVID-19 Right knee pain Lumbago syndrome Androgenetic alopecia Diabetes mellitus with hyperglycemia, without long-term current use of insulin Vitamin D deficiency Essential hypertension Rash of face Iron deficiency anemia Obesity (BMI 30-39.9) Hypercholesterolemia Surgical History Hx of cholecystectomy Hx of tubal ligation Family History Maternal Uncle Substance use disorder Maternal Grandmother Lung cancer Mother CVA (cerebral vascular accident) Social History Housing: House Patient Tobacco Use Status: Never used Tobacco e-Cigarette/Vaping Use: Never Used Second Hand Smoke Exposure: No service: No Current occupational status: employed Cognitive needs: No Hearing needs: No Vision needs: Yes Review of Systems Const All systems reviewed & are unremarkable except as noted in HPI and below Physical Exam Vital Signs: BMI result Body Mass Index 35.6 Const Other: Appearance: Alert.? Oriented X3.? No acute distress.? Head: Normocephalic, atraumatic Eyes: Pupils equal, round and reactive to light.? ENT: Pharynx erythema, + cobblestoned. No post nasal drip or exudate. TM intact and pearly michael. Neck: Normal inspection.? Neck supple.?Full ROM. CVS: Normal heart rate and rhythm.? Pulses normal.? Respiratory: No respiratory distress.? Breath sounds normal.? Neuro: Oriented X 3.? No motor deficit.? No sensory deficit. CN 2-12 intact Results AMB Rapid Strep AMB Rapid Strep Negative Last Edit by Roger Benson CMA on 10/29/23 08 :26 Assessment & Plan Assessment & Plan (1) Upper respiratory infection: Comment: Patient strep came back negative. Patient's had URI swab. Likely viral in nature. Patient will be given prednisone, albuterol, and benzonatate to be taken as prescribed. Patient has also been educated she can use [id number] medication. Patient has been educated the side effects of t hese medications. Code(s): J06.9 - Acute upper respiratory infection, unspecified Qualifiers: URI type: unspecified URI Qualified Code(s): J06.9 - Acute upper respiratory infection, unspecified Plan: Take your medications as prescribed. If you were prescribed antibiotics today, it is important that you take your medication to their entirety, do not skip any doses, do not finish them early. Follow-up with your primary care provider this week. Return to the emergency department with new or worsening symptoms. Such as fevers, chills, chest pain, shortness of breath, nausea, vomiting, dizziness, headache, vision changes, lethargy In case of emergency call 911 Plan Follow-up with PCP. Patient educated that viral illnesses can take up to 10 days to resolve. Orders: Orders SARS-CoV2/FLU/RSV Today J06.9 - Acute upper respiratory infection, unspecified AMB Rapid Strep Screen Today Z13.9 - Encounter for screening, unspecified Medications: New prednisone 20 mg PO BID 10 tabs 0RF albuterol sulfate 90 mcg/actuation 2 puffs inhalation Q6H PRN 6.7 grams 0RF shortness of breath or wheezing benzonatate 200 mg PO BID PRN 20 caps 0RF cough Coding Level of Care Code Est Pt Level 3 (78380) Diagnoses Upper respiratory tract infection, unspecified type J06.9 URI type: unspecified URI Time Spent (min) 21
== END 2023-10-29 08:35 | disposition home or self-care (01) ==
PROVIDERS: PCP Internal Medicine; Visit Provider Nurse Practitioner Primary Care
DX: J06.9 Acute upper respiratory infection, unspecified (principal); J02.9 Acute pharyngitis, unspecified
CPT/HCPCS: 87880; 99213

== ENCOUNTER 2023-10-29 10:18 | Outpatient (REF) | payer BC, SELFPAY ==
[2023-10-29 11:09] LABS: Influenza A PCR NEGATIVE (Negative); Influenza B PCR NEGATIVE (Negative); Resp Syncy Virus RNA Qual PCR NEGATIVE (Negative); SARS COV2 PCR INHOUSE NEGATIVE (Negative)
== END 2023-10-29 10:19 | disposition home or self-care (01) ==
LOC: HO.HMGCLNP 10:18
PROVIDERS: Visit Provider Nurse Practitioner Primary Care
DX: J06.9 Acute upper respiratory infection, unspecified (principal)
CPT/HCPCS: 0241U

== ENCOUNTER 2023-11-20 06:37 | Outpatient (REF) | payer BC, SELFPAY ==
[2023-11-20 10:35] LABS: Estimated Average Glucose 137 mg/dL; Hemoglobin A1c % 6.4 % (<6.0)
[2023-11-20 10:45] LABS: Alanine Aminotransferase 13 U/L (0-31); Aspartate Amino Transferase 14 U/L (5-31)
[2023-11-20 11:26] LABS: Creatinine Urine 145.49 mg/dL; Microalbum/Creatinine Ratio Ur 10.9 ug/mg cr (<30)
== END 2023-11-20 06:38 | disposition home or self-care (01) ==
LOC: HO.HMGCLDS 06:37
PROVIDERS: PCP Internal Medicine; Visit Provider Internal Medicine
DX: E11.9 Type 2 diabetes mellitus without complications (principal); E55.9 Vitamin D deficiency, unspecified
CPT/HCPCS: 36415; 82043; 82570; 83036; 84450; 84460

== ENCOUNTER 2023-11-21 15:38 | Outpatient (AMB) | payer BC, SELFPAY ==
[2023-11-21 16:16] VITALS: BP 132/80; PULSE 88; O2SAT 98; BMI 35.6
--- NOTE | 2023-11-21 16:16 | A.OFFPC_ITS ---
Vital Signs 11/21/23 16:16 Height 5 ft 5 in Weight 214 lb BMI 35.6 BP 132/80 Blood Pressure Location Rt brachial Position Sitting Pulse 88 Pulse Source Pulse Oximeter Pulse Oximetry (%) 98 Intake Visit Reasons: 3 month follow up Intake Note: pt is here for 3 month follow up Allergies No Known Allergies [No Known Allergies*] Allergy (Verified 11/21/23 16:39) Medication List - Last Reconciled 11/21/23 by Charisse Portillo MD albuterol sulfate 90 mcg/actuation 2 puffs inhalation Q6H PRN benzonatate 200 mg PO BID PRN cholecalciferol (vitamin D3) 1,250 mcg PO QWEEK 3 months cyclobenzaprine 10 mg PO BEDTIME PRN dapagliflozin propanediol (Farxiga) 10 mg PO QAM fexofenadine 60 mg PO Q12H PRN lisinopril 2.5 mg PO DAILY metformin 1,000 mg PO BID 90 days prednisone 20 mg PO BID semaglutide 1 mg (0.75 mL) subcut QWEEK 30 days simvastatin 5 mg PO QPM Tobacco use date assessed: 08/15/23 Dental Screening Dental Screen Date: 08/15/23 HPI 3 month follow up HPI Details 57-year-old lady here today for follow-u p on her diabetes mellitus. She is currently taking metformin a 1000 mg 1 tab twice a day, Farxiga 10 mg daily in a.m. and Ozempic 1 mg Q weekly. Recent labs showed improved hemoglobin A1c at 6.4%. Patient tolerating medication well without any side effects. Still struggling with her appetite, and admits to not getting much exercise lately. Recently seen at the walk-in clinic and treated for an upper respiratory tra ct infection with prednisone, and albuterol inhaler as well as benzonatate capsules. She feels much better but still has a nagging dry cough accompanied by tickle in her throat which makes her cough. [facility] Medical History (Updated 11/21/23 @ 18:10 by Charisse Portillo MD) Vitamin D deficiency Type 2 diabetes mellitus without complication, with no history of insulin use Post-COVID chronic cough History of COVID-19 Right knee pain Lumbago syndrome Androgenetic alopecia Diabetes mellitus with hyperglycemia, without long-term current use of insulin Essential hypertension Rash of face Iron deficiency anemia Obesity (BMI 30-39.9) Hypercholesterolemia Surgical History Hx of cholecystectomy Hx of tubal ligation Family History Maternal Uncle Substance use disorder Maternal Grandmother Lung cancer Mother CVA (cerebral vascular accident) Social History Housing: House Patient Tobacco Use Status: Never used Tobacco e-Cigarette/Vaping Use: Never Used Second Hand Smoke Exposure: No service: No Current occupational status: employed Cognitive needs: No Hearing needs: No Vision needs: Yes Questionnaire Thrive Questionnaire Date Thrive assessed: 08/15/23 OMKAR-7 AMB Questionnaire OMKAR-7 Date OMKAR - 7 assessed: 08/15/23 Source: Developed by Drs. Hernan Barraza, Lina Chavarria, Brandon Prince and colleagues, with an educational sandra from [employer]. Review of Systems Const Denies fever(s), Denies headache(s) and Denies weakness Eyes Details: Up-to-date with her diabetes retinopathy screening, [facility] Denies change in vision ENT Denies dizziness, Denies headache(s) and Denies nasal congestion Card Denies chest pain, Denies lightheadedness, Denies palpitations and Denies dyspnea Resp Reports as per HPI and Denies dyspnea GI Denies abdominal pain, Denies change in bowel habits and Denies heartburn Denies urinary frequency, Denies dysuria and Denies urinary urgency Neuro Denies dizziness, Denies headache(s) and Denies weakness Endo Denies palpitations Physical exam (Primary Care) Vital Signs: Last Vital Signs Pulse 88 11/21/23 16:16 BP 132/80 11/21/23 16:16 Pulse Ox 98 11/21/23 16:16 BMI result Body Mass Index 35.6 BMI Assessment/Plan discussion: High BMI High, discussed plan: lifestyle, weight reduction, dietary and physical activity Tobacco/Smoking Status: Tobacco use Status Tobacco use date assessed 08/15/23 11/21/23 16:18 Patient Tobacco Use Status Never used Tobacco 11/21/23 16:18 e-Cigarette/Vaping Use Never Used 11/21/23 16:18 Thrive Assessment: Date of Thrive Assessment Date Thrive assessed 08/15/23 11/21/23 16:18 Const General: comfortable and no acute distress Orientation/consciousness: patient oriented x3 HENMT Ears: external ears normal, TM's normal bilaterally and EAC's normal General nose exam: Normal external nose present and No nasal discharge present Mouth: oropharynx normal and moist mucous membranes Eyes General: appearance normal, both eyes and all related structures Neck Neck: Yes full ROM, Yes no lymphadenopathy and Yes supple Chest Breast/axilla palpation: normal palpation of the breasts Resp Effort & Inspection: normal respiratory effort and able to speak in complete sentences Auscultation: clear to auscultation bilaterally Cardio Rate: regular rate Rhythm: regular rhythm Heart sounds: S1 normal heart sound present and S2 normal heart sound present GI Inspection: Yes normal to inspection Palpation (GI): Soft to palpation, nontender and no masses Auscultation: normal bowel sounds Skin General skin exam: no rashes or lesions noted Neuro General: patient oriented x3, gait normal, tone normal, moves all extremities, Normal light touch and pain sensation and no focal motor deficits Cognition (Neuro): normal cognition Gait exam (Neuro): Normal gait present Motor exam (neuro): 5/5 motor strength present throughout Extrem General: Yes full ROM, Yes no calf tenderness and Yes normal gait Right lower extremity: knee (Positive crepitus right knee) Details: normal ROM and other Results Reviewed Results Reviewed: Laboratory Tests 11/20/23 06:42 Estimat Average Glucose 137 Hemoglobin A1c % 6.4 H AST 14 ALT 13 Urine Creatinine 145.49 Urine Microalbumin 16.0 Microalb/Creat Ratio 10.9 Assessment and Plan Assessment & Plan (1) Obesity (BMI 30-39.9): Code(s): E66.9 - Obesity, unspecified Plan: Increase dose of Ozempic to 1.7 mg per injection once a week. Continue with adherence to healthy eating habits and start doing at least 30 minutes of regular cardio exercises daily Come in to clinic in 4 weeks after starting new dose to be weighed. (2) Type 2 diabetes mellitus without complication, with no history of insulin use: Code(s): E11.9 - Type 2 diabetes mellitus without complications Plan: Recent lab results reviewed with patient, with sugar and hemoglobin A1c stable and at goal continue to check fasting blood sugar at home, maintain log and bring to next appointment for review. Increase Ozempic dose to 1.7 mg subcutaneously given once weekly, continue with metformin and Farxiga. Reinforced diabetic diet and regular exercise with patient. Counseled regarding importance of yearly diabetes retinopathy screening. Patient advised to inspect feet daily, for any signs of injury, callus or infection. Compliance with diet and regular exercise again stressed. Blood pressure goal is less than 130/80, goal LDL is less than 100 and goal hemoglobin A1c is less than 7% (3) Cough due to bronchospasm: Code(s): J98.01 - Acute bronchospasm Plan: Likely due to environmental and seasonal allergies. Empirically started on fexofenadine 60 mg per tablet to take 1 every 12 hours as needed for itchy throat, nasal congestion and cough. Sample of saline nasal wash given to patient and instructed on proper use Orders: Orders Basic Metabolic Panel Fasting 4 Months E11.9 - Type 2 diabetes mellitus without complications, E55.9 - Vitamin D deficiency, unspecified, E66.9 - Obesity, unspecified, E78.00 - Pure hypercholesterolemia, unspecified, I10 - Essential (primary) hypertension Lipid Panel 4 Months E11.9 - Type 2 diabetes mellitus without complications, E55.9 - Vitamin D deficiency, unspecified, E66.9 - Obesity, unspecified, E78.00 - Pure hypercholesterolemia, unspecified, I10 - Essential (primary) hypertension Hemoglobin A1c 4 Months E11.9 - Type 2 diabetes mellitus without complications, E55.9 - Vitamin D deficiency, unspecified, E66.9 - Obesity, unspecified, E78.00 - Pure hypercholesterolemia, unspecified, I10 - Essential (primary) hypertension Alanine Aminotransferase 4 Months E11.9 - Type 2 diabetes mellitus without complications, E55.9 - Vitamin D deficiency, unspecified, E66.9 - Obesity, unspecified, E78.00 - Pure hypercholesterolemia, unspecified, I10 - Essential (primary) hypertension Aspartate Amino Transferase 4 Months E11.9 - Type 2 diabetes mellitus without complications, E55.9 - Vitamin D deficiency, unspecified, E66.9 - Obesity, unspecified, E78.00 - Pure hypercholesterolemia, unspecified, I10 - Essential (primary) hypertension Vitamin D 25-OH Total 4 Months E11.9 - Type 2 diabetes mellitus without complications, E55.9 - Vitamin D deficiency, unspecified, E66.9 - Obesity, unspecified, E78.00 - Pure hypercholesterolemia, unspecified, I10 - Essential (primary) hypertension Medications: New fexofenadine 60 mg PO Q12H PRN 60 tabs 0RF Allergy symptom semaglutide (weight loss) administer weeks 13 through 16 of therapy 1.7 mg (0.75 mL) subcut QWEEK 30 days 3 mL 0RF E11.9 - Type 2 diabetes mellitus without complications, E66.9 - Obesity, unspecified Refilled benzonatate 200 mg PO BID PRN 20 caps 0RF cough Discontinued semaglutide Discontinued Reason: Doctor's Order 1 mg (0.75 mL) subcut QWEEK 30 days 3.75 mL 3RF E11.9 - Type 2 diabetes mellitus without complications prednisone Discontinued Reason: Patient no longer taking 20 mg PO BID 10 tabs 0RF Coding Level of Care Code Est Pt Level 4 (96073) Diagnoses Obesity (BMI 30-39.9) E66.9 Type 2 diabetes mellitus without complication, with no history of insulin use E11.9 Cough due to bronchospasm J98.01
== END 2023-11-21 17:01 | disposition home or self-care (01) ==
PROVIDERS: PCP Internal Medicine; Visit Provider Internal Medicine
DX: E11.9 Type 2 diabetes mellitus without complications (principal); E66.9 Obesity, unspecified; J98.01 Acute bronchospasm; Z68.35 Body mass index [BMI] 35.0-35.9, adult
CPT/HCPCS: 99214

== ENCOUNTER 2024-05-14 06:49 | Outpatient (REF) | payer BC, SELFPAY ==
[2024-05-14 10:49] LABS: Estimated Average Glucose 157 mg/dL; Hemoglobin A1C 195.6968 umol/L; Hemoglobin A1c % 7.1 % (<6.0); Total Hemoglobin (HGBA1C) 3598.8369 umol/L
[2024-05-14 11:11] LABS: Alanine Aminotransferase 12 U/L (0-31); Anion Gap 13 (12-20); Aspartate Amino Transferase 20 U/L (5-31); Blood Urea Nitrogen 15 mg/dL (9-16); Calcium 9.7 mg/dL (8.4-10.2); Carbon Dioxide 23 mmol/L (22-29); Chloride 106 mmol/L (96-108); Cholesterol 135 mg/dL (<200); Estimated Glomerular Filt Rate > 60; Glucose Fasting 156 mg/dL (60-99); HDL Cholesterol 44 mg/dL (>40); LDL Cholesterol Calculated 62 mg/dL (<100); Potassium 4.7 mmol/L (3.3-5.1); Sodium 137 mmol/L (135-145); Triglycerides 148 mg/dL (<150)
[2024-05-14 11:12] LABS: Vitamin D 25-OH Total 48.6 ng/mL (>30)
== END 2024-05-14 06:50 | disposition home or self-care (01) ==
LOC: HO.HMGCLDS 06:49
PROVIDERS: PCP Internal Medicine; Visit Provider Internal Medicine
DX: E66.9 Obesity, unspecified (principal); E78.00 Pure hypercholesterolemia, unspecified; I10 Essential (primary) hypertension; E55.9 Vitamin D deficiency, unspecified; E11.65 Type 2 diabetes mellitus with hyperglycemia; Z23 Encounter for immunization
CPT/HCPCS: 36415; 80048; 80061; 82306; 83036; 84450; 84460; 90471; 90656

== ENCOUNTER 2024-05-14 15:41 | Outpatient (AMB) | payer BC, SELFPAY ==
[2024-05-14 16:19] VITALS: BP 106/70; PULSE 94; O2SAT 97; BMI 34.8
--- NOTE | 2024-05-14 16:19 | A.OFFPC_ITS ---
Vital Signs 05/14/24 16:19 Height 5 ft 5 in Weight 209 lb BMI 34.8 BP 106/70 Blood Pressure Location Rt brachial Position Sitting Pulse 94 Pulse Source Pulse Oximeter Pulse Oximetry (%) 97 Oxygen Delivery Method Room Air Intake Visit Reasons: f/u weigh in and labs Intake Note: Pt is here today for her weigh in and labs Allergies No Known Allergies [No Known Allergies*] Allergy (Verified 05/14/24 16:28) Medication List - Last Reconciled 05/14/24 by Charisse Portillo MD dapagliflozin propanediol (Farxiga) 10 mg PO QAM lisinopril 2.5 mg PO DAILY metformin 1,000 mg PO BID 90 days minoxidil 1.25 mg PO DAILY simvastatin 5 mg PO QPM spironolactone 25 mg PO BID Wegovy (semaglutide (weight loss)) 0.25 mg (0.5 mL) subcut QWEEK 4 weeks NS Tobacco use date assessed: 05/14/24 Dental Screening Dental Screen Date: 05/14/24 Did you have a dental visit in the last 12 months?: Yes Did you have a dental problem in the last 6 months where you did not have access to dental care?: No Was dental information given to patient?: Patient has dentist HPI f/u weigh in and labs HPI Details 58-year-old lady here today for follow-u p on her diabetes mellitus, hypertension, hyperlipidemia and obesity. She is currently taking metformin a 1000 mg twice a day together with Farxiga 10 mg daily in a.m. and Wegovy 0.25 mg injected weekly. Patient states that she is tolerating this medication well, has lost approximately 5 lb since last visit. She states that she is trying to stick to recommended diet but has not been getting any exercise at all. Her hemoglobin A1c today came back elevated at 7.1 %, but her electrolytes, renal function, fasting lipids and liver enzymes are all within normal limits. [facility] Medical History Diabetes mellitus with hyperglycemia Vitamin D deficiency Type 2 diabetes mellitus without complication, with no history of insulin use Post-COVID chronic cough History of COVID-19 Right knee pain Lumbago syndrome Androgenetic alopecia Diabetes mellitus with hyperglycemia, without long-term current use of insulin Essential hypertension Rash of face Iron deficiency anemia Obesity (BMI 30-39.9) Hypercholesterolemia Surgical History Hx of cholecystectomy Hx of tubal ligation Family History Maternal Uncle Substance use disorder Maternal Grandmother Lung cancer Mother CVA (cerebral vascular accident) Social History Housing: House Patient Tobacco Use Status: Never used Tobacco e-Cigarette/Vaping Use: Never Used Second Hand Smoke Exposure: No service: No Current occupational status: employed Cognitive needs: No Hearing needs: No Vision needs: Yes Questionnaire Thrive Questionnaire Date Thrive assessed: 08/15/23 I am a: Patient What is your living situation today?: I have a steady place to live THRIVE Score: 0 OMKAR-7 AMB Questionnaire OMKAR-7 Date OMKAR - 7 assessed: 08/15/23 Source: Developed by Drs. Hernan Barraza, Lina Chavarria, Brandon Prince and colleagues, with an educational sandra from [employer] Review of Systems Const Denies body aches, Denies fatigue, Denies fever(s), Denies headache(s), Denies weakness and Reports weight loss Eyes Details: Up-to-date with her diabetes retinopathy screening, goes [facility] Denies change in vision ENT Denies dizziness, Denies headache(s) and Denies nasal congestion Card Denies chest pain, Denies lightheadedness, Denies palpitations and Denies dyspnea Resp Reports as per HPI and Denies dyspnea GI Denies abdominal pain, Denies change in bowel habits and Denies heartburn Denies urinary frequency, Denies dysuria and Denies urinary urgency Musc Reports no additional complaints Neuro Denies dizziness, Denies headache(s) and Denies weakness Psych Reports no additional complaints Endo Denies fatigue and Denies palpitations Miki/Lymph Reports no additional complaints Physical exam (Primary Care) Vital Signs: Last Vital Signs Pulse 94 05/14/24 16:19 BP 106/70 05/14/24 16:19 Pulse Ox 97 05/14/24 16:19 Oxygen Delivery Method Room Air 05/14/24 16:19 BMI result Body Mass Index 34.8 Tobacco/Smoking Status: Tobacco use Status Tobacco use date assessed 05/14/24 05/14/24 16:22 Patient Tobacco Use Status Never used Tobacco 05/14/24 16:22 e-Cigarette/Vaping Use Never Used 05/14/24 16:22 Thrive Assessment: Date of Thrive Assessment Date Thrive assessed 08/15/23 05/14/24 16:22 Const General: comfortable and no acute distress Orientation/consciousness: patient oriented x3 HENMT Ears: external ears normal General nose exam: Normal external nose present Eyes General: appearance normal, both eyes and all related structures Neck Neck: Yes full ROM, Yes no lymphadenopathy and Yes supple Resp Effort & Inspection: normal respiratory effort and able to speak in complete sentences Auscultation: clear to auscultation bilaterally Cardio Rate: regular rate Rhythm: regular rhythm Heart sounds: S1 normal heart sound present and S2 normal heart sound present Neuro General: patient oriented x3, gait normal, tone normal, moves all extremities, Normal light touch and pain sensation and no focal motor deficits Extrem General: Yes full ROM, Yes no calf tenderness and Yes normal gait Office Procedures Flu Questionnaire Does the patient have a severe egg allergy?: No Does the patient have severe life threatening allergies?: No Does the patient have a fever or illness today?: No Has the patient ever had Guillain-[place] Syndrome?: No Has the patient ever had any past reaction to a flu shot?: No Immunizations Fluarix Triv 5941-6497 (PF) 45 mcg (15 mcg x 3)/0.5 mL IM syringe Performing Provider: Charisse Portillo MD Performing Location: [facility] Administered by: Anusha Vargas CMA on 05/14/24 17:00 Dose Route Admin Location Dispensed Lot Number Expiration Date [facility] Double Backer 0.5 mL IM Left Deltoid 0.5 mL [id number] 01/04/25 [id number] [employer] VIS Given Date VIS Provided VIS Publication Date 05/14/24 Single Vaccine 21 Eligibility Eligibility Date Funding Source Not [facility] Eligible 05/14/24 Private Results Reviewed Results Reviewed: Laboratory Tests 11/20/23 05/14/24 06:42 07:04 Estimat Average Glucose 157 Hemoglobin A1c % 7.1 H Urine Creatinine 145.49 Urine Microalbumin 16.0 Microalb/Creat Ratio 10.9 Name: Sandra Trejo Age/Sex: 58/F : 1965 Unit#: [id number] Attend Dr: Charisse Portillo MD Re05/14/24 Status: DEP REF Location: [facility] Disch: SPEC : [id number] GINNY: 05/14/24 STATUS: COMP REQ : [id number] RECD: 05/14/24-[address]: Charisse Portillo MD COMP: 05/14/24 ENTERED: 05/14/[address]: ORDERED: Met Prof Fast, AST, ALT, Lipid Panel, Vitamin D 25-OH Test Result Flag Reference Sodium 137 135-145 mmol/L Potassium 4.7 # 3.3-5.1 mmol/L CL 106 96-108 mmol/L CO2 23 22-29 mmol/L Gap 13 12-20 BUN 15 9-16 mg/dL Creat 0.83 0.5-1.4 mg/dL EGFR > 60 NOTE: For -[place] individuals, multiply the result by 1.210. Chronic Kidney Disease: Estimated GFR < 60 mL/min/1.73m2 Severe Kidney Disease: Estimated GFR < 15 mL/min/1.73m2 FBS 156 H 60-99 mg/dL A fasting glucose of 126 mg/dl or greater on more than one occasion is considered diagnostic of diabetes. CA 9.7 8.4-10.2 mg/dL AST (GOT) 20 5-31 U/L ALT (GPT) 12 0-31 U/L Triglyceride 148 <150 mg/dL Desirable Triglyceride: less than 150 mg/dL Borderline High Triglyceride 150-199 mg/dL High Triglyceride: 200-499 mg/dL Very High Triglyceride: greater than or equal to 5OO mg/dL Cholesterol 135 <200 mg/dL Desirable Cholesterol: less than 200 mg/dL Borderline High Cholesterol: 200-239 mg/dL High Cholesterol: greater than 239 mg/dL LDL Calculated 62 <100 mg/dL Desirable LDL: less than 100 mg/dL Near Optimal/Above Optimal LDL: 110-129 mg/dL Borderline High LDL: 130-159 mg/dL High LDL: 160-189 mg/dL Very High LDL: greater than or equal to 190 mg/dL HDL 44 >40 mg/dL Desirable HDL: greater than 40 mg/dL Note: This HDL assay may give artificially low results in patients with liver disease. Vit D 25-OH Tot 48.6 >30 ng/mL Health Based Reference Values* < 20 ng/mL Deficient 20-30 ng/mL Insufficient > 30 ng/mL Sufficient Coding Level of Care Code Est Pt Level 4 (79471) Complex EM visit Add On G2211 Diagnoses Diabetes mellitus with hyperglycemia E11.65 Hypercholesterolemia E78.00 Essential hypertension I10 Vitamin D deficiency E55.9 Assessment & Plan Assessment & Plan (1) Diabetes mellitus with hyperglycemia: Code(s): E11.65 - Type 2 diabetes mellitus with hyperglycemia Category: Medical Plan: Latest hemoglobin A1c has increased from 6 .1 % 6 months ago to 7.1% today. Will continue on same medication of Farxiga 10 mg daily in a.m., metformin 1000 mg twice a day and Wegovy at 0.25 mg injected once weekly. Reinforced importance of following recommended diet and getting regular cardio exercises at least 15-30 minutes daily. Repeat fasting labs again in 3 months. She is up-to-date with her diabetes retinopathy screening. Flu vaccine given today (2) Hypercholesterolemia: Code(s): E78.00 - Pure hypercholesterolemia, unspecified Category: Medical Plan: Fasting lipids are within normal limits, will continue on simvastatin 5 mg at bedtime (3) Essential hypertension: Code(s): I10 - Essential (primary) hypertension Category: Medical Plan: Blood pressure at goal of less than 130/80. Continue with current medication. Reinforced importance of following a low sodium diet, getting regular exercise, and lowering stress levels. (4) Vitamin D deficiency: Code(s): E55.9 - Vitamin D deficiency, unspecified Category: Medical Plan: Her latest vitamin-D levels are now within normal limits. Orders: Orders Lipid Panel 08/08/24 E11.65 - Type 2 diabetes mellitus with hyperglycemia, E55.9 - Vitamin D deficiency, unspecified, E78.00 - Pure hypercholesterolemia, unspecified, I10 - Essential (primary) hypertension Microalbumin, Random (w Creat) 08/08/24 E11.65 - Type 2 diabetes mellitus with hyperglycemia, E55.9 - Vitamin D deficiency, unspecified, E78.00 - Pure hypercholesterolemia, unspecified, I10 - Essential (primary) hypertension Aspartate Amino Transferase 08/08/24 E11.65 - Type 2 diabetes mellitus with hyperglycemia, E55.9 - Vitamin D deficiency, unspecified, E78.00 - Pure hypercholesterolemia, unspecified, I10 - Essential (primary) hypertension Alanine Aminotransferase 08/08/24 E11.65 - Type 2 diabetes mellitus with hyperglycemia, E55.9 - Vitamin D deficiency, unspecified, E78.00 - Pure hypercholesterolemia, unspecified, I10 - Essential (primary) hypertension Hemoglobin A1c 08/08/24 E11.65 - Type 2 diabetes mellitus with hyperglycemia, E55.9 - Vitamin D deficiency, unspecified, E78.00 - Pure hypercholesterolemia, unspecified, I10 - Essential (primary) hypertension Basic Metabolic Panel Fasting 08/08/24 E11.65 - Type 2 diabetes mellitus with hyperglycemia, E55.9 - Vitamin D deficiency, unspecified, E78.00 - Pure hypercholesterolemia, unspecified, I10 - Essential (primary) hypertension Vitamin D 25-OH Total 08/08/24 E11.65 - Type 2 diabetes mellitus with hyperglycemia, E55.9 - Vitamin D deficiency, unspecified, E78.00 - Pure hypercholesterolemia, unspecified, I10 - Essential (primary) hypertension Influenza [id number] Immunization 05/14/24 Z23 - Encounter for immunization
== END 2024-05-14 16:59 | disposition home or self-care (01) ==
LOC: HO.HMCC 15:42
PROVIDERS: PCP Internal Medicine; Visit Provider Internal Medicine
DX: Z23 Encounter for immunization (principal)

== ENCOUNTER 2024-05-21 07:37 | Outpatient (REF) | payer BC, SELFPAY ==
--- NOTE | ~2024-05-21 | FL_ITS ---
EXAMINATION: XR FLUOROSCOPY UPPER GI WITH AIR CLINICAL INFORMATION: Dysphagia COMPARISON: None TECHNIQUE: Fluoroscopic air contrast upper GI examination was performed utilizing standard techniques with thin and thick barium and effervescent granules. Numerous spot images were obtained. FINDINGS: Lateral cine images of the oropharynx and hypopharynx demonstrate normal swallow mechanism with normal epiglottic inversion and soft palate elevation. No tracheal penetration, glottic or subglottic aspiration identified. No nasopharyngeal reflux present. Hypopharyngeal structures appear normal without evidence of mass or diverticulum. There was no significant cricopharyngeal achalasia. Dual and single contrast images of the esophagus demonstrate normal caliber, contour, and mucosal pattern. No evidence of stricture, mass, or ulcerations identified. Esophageal peristalsis is mildly disorganized. A small type I hiatal hernia is present. No significant gastroesophageal reflux was seen during the course of the examination and on reflux views. Dual contrast and single contrast images of the stomach demonstrated a normal contour. The areae gastrica has a thickened/prominent appearance, suggestive gastritis. No masses, or ulcerations are seen. Contrast freely passed into the gastric antrum and duodenal bulb without delay. Single and air-contrast images of the duodenal bulb demonstrate no abnormality. The duodenal sweep has a normal appearance, course, and mucosal fold appearance. There is a small to moderate-sized diverticulum noted in the third segment of duodenum. The imaged proximal jejunum has a normal fold pattern and caliber. FLUOROSCOPY TIME: 4 minutes 36 seconds Number of Spot Images: 8 Number of Cine: 14 DOSE AREA PRODUCT: 2997 uGy-m2 (microgray-meter squared) FL/FL barium swallow IMPRESSION: 1. Mildly disordered esophageal peristalsis. 2. Small type I hiatal hernia 3. The areae gastrica has a thickened/prominent appearance, suggestive gastritis. 4. Small to moderate-sized diverticulum noted in the third segment of the duodenum. This procedure was performed by Chapincito Jamison PA-C, and supervised by Dr. Tipton Electronically signed by: Jerald Tipton MD 05/21/2024 04:52 PM [facility]
== END 2024-05-21 07:38 | disposition home or self-care (01) ==
LOC: HO.XRAY 07:37
PROVIDERS: PCP Internal Medicine; Visit Provider Otolaryngology
DX: R13.10 Dysphagia, unspecified (principal)
CPT/HCPCS: 74220

== ENCOUNTER → 2024-05-21 07:42 | Outpatient (BNV) | payer BC, SELFPAY | PROVIDERS: PCP Internal Medicine; Visit Provider Physician Assistant Surgical | DX: R13.10 Dysphagia, unspecified (principal) | CPT/HCPCS: 74246 ==

== ENCOUNTER 2024-07-25 08:00 | Outpatient (REF) | payer BC, SELFPAY | END 2024-07-25 08:01 | disposition home or self-care (01) | LOC: HO.HMGCLNP 08:00 | PROVIDERS: PCP Internal Medicine; Visit Provider Internal Medicine Gastroenterology | DX: R13.12 Dysphagia, oropharyngeal phase (principal); R93.3 Abnormal findings on diagnostic imaging of other parts of digestive tract | CPT/HCPCS: 87338 ==

== ENCOUNTER 2024-11-05 06:25 | Outpatient (REF) | payer OTHER, SELFPAY ==
--- OUTSIDE RECORDS SUMMARY | 2024-11-05 06:28 | XMS_ITS ---
Author Organization [facility] Address [address] [place] [address] Care Team Providers Care Equities Analyst Name Role Phone Lindsey HACKETT, Charisse Roche Primary Care Provider Un available Smith Giles Unavailable [phone] Encounters Encounter Location Date Provider Diagnosis [address] [phone] 06/18/2023 Smith Giles Plan Of Treatment Next Appt Details Provider Name:Smith Giles , 01/26/2025 03:15:00 PM, [address] [place] [address], [phone], Progress Notes * Sandra TREJODOB:[birth year] (58 yo F)Acc No.[id number]:06/18/2023 Progress Note Patient:?Sandra TREJO Provider:?Smith Giles DPM :1965???Age:57 Y???Sex:Female D ate:06/18/2023 Address:[address] [place] [address] Pcp:Arthur Ross Subjective: * Chief Complaints: * ??? * Medical History:? Objective: * Vitals:? Assessment: Plan: * Treatment: * Images: * The named appointment provid er may or may not be the originator of this progress note, and it is not deemed complete until electronically signed by the appointment provider. Sign off status: Pending * Provider:?Smith Tisha, DPM Date:?2022 Generated for Kevin cantu/Janee/Joby on:?11/05/2024 06:27 AM EDT
--- OUTSIDE RECORDS SUMMARY | 2024-11-05 06:28 | XMS_ITS | Patient Health Record ---
Author Organization [facility] [place] Address [address] [place] [address] Care Team Providers Care Agronomy Supervisor Name Role Phone Lindsey HACKETT, Charisse Roche Primary Care Provider Un available Tisha Smith Unavailable [phone] Allergies No Known Allergies Results Component Value Reference Range Notes HEMOGLOBIN A1C (GLYCOHEMOGLO BIN) Reviewed date:10/27/2024 10:45:17 AM Interpretation: Performing Lab: Notes/Report: HEMOGLOBIN A1C % (HH) 6.8 Reason For Referral No Information Medications Medication SIG (Take, Route, Frequency, Duration) Notes Start Date End Date Status Simvastatin 5 MG 2 tablets in the jaz fuad Orally Once a day Active Vitamin D3 50 MCG (1999 UT) 1 capsule Orally Once a day Active Ozempic Active Lisinopril 2.5 MG 1 tablet Orally Once a day Active metFORMIN HCl 1000 MG 1 tablet with a me al Orally twice a day Active Farxiga 10 MG 1 tablet Orally Once a day Active Ciclopirox 0.77 % 1 application Rice Cleaning Machine Tender ally Twice a day for 365 days Not-Daniel ing Extra Depth Orthopedic Shoes (1 Pair) with Customized Heat Molded Multidensity Innersoles (3 Pair) as directed Dx: NIDDM (E11.9), Hammertoe Foot Deformity (M20.41,M20.42), Preulcerative Skin Lesion(s) (L85.1) 10/27/2024 Active Social History Tobacco Use: Social History Observation Description Date Details (start date - stop date) Never Smoker NA - NA Tobacco use other than smoking: Question Answer Notes Are you an other tobacco user? No Tobacco Control (Standard) Question Answer Notes Tobacco use: Nonsmoker Additional Findings: Tobacco non-user Current no nsmoker AUDIT-C (Standard) Question Answer Notes Did you have a drink containing alcohol in the p ast year? No Points 0 Interpretation Negative Problems Problem Type SNOMED Code ICD Code Onset Dates Problem Status W/U Status Risk Notes Problem Acquired hammer toe of right foot (029620283374597 5) Other hammer toe(s) (acquired), right foot (M20.41) Active confirmed Problem Acquired hammer toe of left foot (789360082748571 3) Other hammer toe(s) (acquired), left foot (M20.42) Active confirmed Problem Type 2 diabetes mellitus without complication (827580454) Type 2 diabetes mellitus without complication (E11.9) Active confirmed Vital Signs Blood pressure diastolic 80 mm Hg 10/27/2024 Height 5 ft 5 in in 10/27/2024 Blood pressure systolic 120 mm Hg 10/27/2024 Weight 204 lbs 10/27/2024 BMI 33.94 kg/m2 10/27/2024 Procedures Procedure Date Ordered Date Performed Result Body Sit e 65067-DFHEBJC NAIL, 6 OR MORE 10/27/2024 N/A Encounters Encounter Location Date Provider Diagnosis [facility] [address] [place] [address] 10/27/2024 Smith Giles Pain in right toe(s) M79.674 ; Tinea unguium B35.1 ; Pain in left toe(s) M79.675 ; Type 2 diabetes mellitus without complication E11.9 ; Other hammer toe(s) (acquired), right foot M20.41 and Other hammer toe(s) (acquired), left foot M20.42 Assessments Encounter Date Diagnosis (ICD Code) Assessment Notes Treatment Notes Treatment Clinical Notes Section Notes 10/27/2024 Pain in right toe(s) (ICD-10 - M79.674) 10/27/2024 Tinea unguium (ICD-10 - B35.1) 10/27/2024 Pain in left toe(s) (ICD-10 - M79.675) 10/27/2024 Type 2 diabetes mellitus without complication (ICD-10 - E11.9) 10/27/2024 Other hammer toe(s) (acquired), right foot (ICD-10 - M20.41) Patient Educated with: DIABETIC FOOT CARE INSTRUCTIONS.p df (DIABETIC FOOT CARE INSTRUCTIONS.p df) 10/27/2024 Other hammer toe(s) (acquired), left foot (ICD-10 - M20.42) Plan Of Treatment Pending Test Test Name Order Date [id number] NAIL, 6 OR MORE 10/27/2024 Next Appt Details Provider Name:Smith Giles , 01/26/2025 03:15:00 PM, [address] [place] [address], [phone], Insurance Providers Payer Name Payer Address Payer Phone Subscriber Number Group Number Insured Name Patient Relationship to Insured Coverage Start Date Coverage End Date [facility] [address] [place] [id number] Varghese Beasley Spouse - patient is the spouse of the insured Medical (General) History Medical History History ICD Code Anxiety Back,Hip,and Knee pain type II diabetes Fibromyalgia Headaches/Migraines High blood pressure Psoriasis/eczema Chicken pox Hypercholesterolemia Surgical History Surgery Date(Month/Year) tubal ligation 06/04/2001
--- OUTSIDE RECORDS SUMMARY | 2024-11-05 06:28 | XMS_ITS ---
Author Organization [facility] Address [address] [place] [address] Care Team Providers Care Rag Production Worker Name Role Phone Lindsey HACKETT, Charisse Roche Primary Care Provider Un available Tisha Smith Unavailable [phone] Allergies No Known Allergies REASON FOR VISIT At Risk Footcare, Painful Nail(s) aggravated by shoes and causing difficulty standing/walking., ToeIrritation Medications Medication SIG (Take, Route, Frequency, Duration) Notes Start Date End Date Status Simvastatin 5 MG 2 tablets in the jaz fuad Orally Once a day Active Vitamin D3 50 MCG (1999 UT) 1 capsule Orally Once a day Active Ozempic Active Ciclopirox 0.77 % 1 application Media Developer ally Twice a day for 365 days Not-Daniel ing Extra Depth Orthopedic Shoes (1 Pair) with Customized Heat Molded Multidensity Innersoles (3 Pair) as directed Dx: NIDDM (E11.9), Hammertoe Foot Deformity (M20.41,M20.42), Preulcerative Skin Lesion(s) (L85.1) 10/27/2024 Active Lisinopril 2.5 MG 1 tablet Orally Once a day Active metFORMIN HCl 1000 MG 1 tablet with a me al Orally twice a day Active Farxiga 10 MG 1 tablet Orally Once a day Active Social History Tobacco Use: Social History [...] Problem Acquired hammer toe of right foot (9083179053308 105) Other hammer toe(s) (acquired), right foot (M20.41) Active confirmed Problem Acquired hammer toe of left foot (4745888270898 103) Other hammer toe(s) (acquired), left foot (M20.42) Active confirmed Vital Signs Height 5 ft 5 in in 10/27/2024 Weight 204 lbs 10/27/2024 BMI 33.94 kg/m2 10/27/2024 Blood pressure systolic 120 mm Hg 10/28/19 25 Blood pressure diastolic 80 mm Hg 025 Procedures Procedure Date Ordered Date Performed Result Body Sit e 80168-MCJZKNY NAIL, 6 OR MORE 10/27/2024 N/A Encounters Encounter Location Date Provider Diagnosis [facility] [address] [address] 10/27/2024 Smith Giles Pain in right toe(s) [...] foot (ICD-10 - M20.42) Plan Of Treatment Medication Medication Name Sig Start Date Stop Date Notes Extra Depth Orthopedic Shoes (1 Pair) with Customized Heat Molded Multidensity Innersoles (3 Pair) as directed Dx: NIDDM (E11.9), Hammertoe Foot Deformity (M20.41,M20.42), Preulcerative Skin Lesion(s) (L85.1) 10/27/2024 Treatment Notes Assessment Notes Other hammer toe(s) (acquired), right fo ot Patient Educated with: DIABETIC FOOT CARE INSTRUCTIONS.pdf (DIABETIC FOOT CARE INSTRUCTIONS.pdf) Pending Test Test Name Order Date [id number] NAIL, 6 OR MORE 10/27/2024 Next Appt Details Follow Up: prn, Reason: Provider Name:Smith Giles , 01/26/2025 03:15:00 PM, [address] [place] [address], [id number], Procedure Notes * Category Sub-Category Detail Notes Debride Nail 6-10 Nail debridement Due to the cl inical pathology outlined in the exam findings, performance of this nail treatment is medically necessary as its management by an unskilled/untrained nonprofessional would put this patients foot and overall health at risk. Therefore, debridement to affected nail(s), as described in exam ( TA, T1, T2, T3, T4, T5, T6, T7, T8, T9 ), was performed exclusively by the physician of record to reduce/remove overall nail length, girth, thickness, subungual debris, and necrotic tissue, by manual and/or electrical means through the use of a nail nipper and/or dremel-type centerless grinder tender, to a more viable healthy nail plate or bed tissue 6-10 nails in total. Silver nitrate was used for any petechial bleeding as necessary. Definitive antifungal treatment options, both pharmaceutical and surgical, have been reviewed and discussed with the patient. The patient solely prefers the use of intermittent/as needed professional debridement services for their nail condition and understands the need for additional periodic treatments to maintain effectiveness in symptomatic relief - 34668 Progress Notes * Sandra TREJODOB:[birth year] (58 yo F)Acc No.[id number]:10/27/2024 Progress Note Patient:?Sandra TREJO Provider:?Smith Giles DPM :1965???Age:58 Y???Sex:Female D ate:10/27/2024 Address:[address] , [facility] Pcp:Arthur Ross Subjective: * Chief Complaints: * ???At Risk FootcarePainful N ail(s) aggravated by shoes and causing difficulty standing/walking.Toe Irritation * HPI: ???At Risk footcare:?Pt States Last PCP Visit:?Date?08/20/2024 ???Toe pain:?Location:?B/L feet.?Duration:?several years.?Course:?worse.?Aggravated by:?shoes, any pressure.?Treatments:?change in shoes.? * ROS:?General/Constitutional:?Nausea?denies.?Vomiting?denies.?Hunger Thirst?denies.?Loss appetite?denies.?Chills?denies.?Fatigue?admits.?Fever?denies.?Night Sweats?denies.?Unexplained weight loss?denies.?Unexplained weight gain?denies.?HEENTM:?Dentures?denies.?Dizziness?denies.?Glasses/contacts?admits.?Retinopathy?den ies.?Blurred/double vision?denies.?TMJ?denies.?Discharge/drainage?denies.?Implants?denies.?Sore throat?denies.?Dental implants?denies.?Hard of hearing ?denies.?Difficulty chewing/swallowing/speaking?denies.?Nose bleeds?denies.?Sore mouth?denies.?Respiratory:?On O xygen?denies.?Pneumonia/pleurisy?denies.?Bronchitis?denies.?Emphysema?denies.?Co ughing?denies.?Cough blood?denies.?Shortness of breath?denies.?Wheezing?denies.?Cardiovascular:?Pacemaker?denies.?MVP?denies.?WPW?denies.?CHF?denies.?Heart attack?denies.?Septal defect?denies.?Rapid beat?denies.?Chest pain ?denies.?Atrial Fib.?denies.?Murmur/Palpitations?denies.?Gastrointestinal:?Hemorrhoids?denies.?Stomach/Abdominal pain?denies.?Dark blood stool?denies.?Irritable bowel ?denies.?Constipation?denies.?Diarrhea?denies.?Hematology:?Swelling?denies.?Clots?denies.?Varicose Veins?denies.?Bruising?denies.?Bleeding problem?denies.?Genitourinary:?Blood urine?denies.?Frequent/Painfu/urination/bladder control?denies.?Kidney stones?denies.?Infection (UTI)?denies.?Nephropathy?denies.?sex trans dis (STD)?denies.?Prostate?denies.?Musculoskeletal:?Hammertoes?admits.?Bunions?denies.?Back Pain?admits.?Muscle Cramps/ Resting?denies.?Muscle cramps / walking?denies.?Generalized aches and pains?admits.?Weakness?denies.?Integ.:?Roth?denies.?Scars?denies.?Corns/calluses?admits.?Ingrown nails?admits.?Painful nails?admits.?Open Sores?denies.?Rashes?denies.?Neurologic:?Difficulty sleeping?denies.?Brain disorder?denies.?Numbness?denies.?Balance t rouble?denies.?Confusion?denies.?Fainting/blackouts?denies.?Tingling?denies.?Damion mors?denies.? * Medical History:? * Surgical History:?tubal liga tion 06/04/2001 * Hospitalization/Major Diagno stic Procedure:?Denies Past Hospitalization * Family History:?Mother: saul taylor, stroke, diagnosed with Diabetic - NIDDM, Unspecified essential hypertension, Unspecified cerebral artery occlusion with cerebral infarction, Family history of arthritis.?Father: , heart attack, diagnosed with Diabetic - NIDDM, Unspecified essential hypertension.?Maternal Grand Mother: diagnosed with Other malignant neoplasm of unspecified site.?Paternal aunt: diagnosed with Other malignant neoplasm of unspecified site.? * Social History:?Tobacco Use:?Tobacco use other than smoking?Are you an other tobacco user??No ?Tobacco Control (Standard)?Tobacco use:?Nonsmoker ?Additional Findings: Tobacco non-user?Current nonsmoker ???Drugs/Alcohol:?Drugs?Have you used drugs other than those for medical reasons in the past 12 months??No ???Miscellaneous:?Caffeine: yes, frequency: 1 cup as day. ?Children: yes. ?Exercise: no. ?Marital status: . ???Drug/Alcohol:?AUDIT-C (Standard)?Did you have a drink containing alcohol in the past year??No ?Points?0 ?Interpretation?Negative * Medications:?TakingFarxiga 1 0 MG Tablet 1 tablet Orally Once a day Lisinopril 2.5 MG Tablet 1 tablet Orally Once a day metFORMIN HCl 1000 MG Tablet 1 tablet with a meal Orally twice a day Ozempic Simvastatin 5 MG Tablet 2 tablets in the evening Orally Once a day Vitamin D3 50 MCG (2000 UT) Capsule 1 capsule Orally Once a day Taking Farxiga 10 MG Tablet 1 tablet Orally Once a day Taking Lisinopril 2.5 MG Tablet 1 tablet Orally Once a day Taking metFORMIN HCl 1000 MG Tablet 1 tablet with a meal Orally twice a day Taking Ozempic Taking Simvastatin 5 MG Tablet 2 tablets in the evening Orally Once a day Taking Vitamin D3 50 MCG (1999) Capsule 1 capsule Orally Once a day Not-Taking/PRNCiclopirox 0.77 % Gel 1 application Externally Twice a day Medication List reviewed and reconciled with the patientNot-Taking/PRN Ciclopirox 0.77 % Gel 1 application Externally Twice a day Medication List reviewed and reconciled with the patient * Allergies:?N.K.D.A.yes[Aller gies Verified] Objective: * Vitals:?Ht:5 ft 5 in, Wt:204 , BMI:33.94, Shoe size:8.5-9, BP:120/80mm Hg, BS:112, Ht-cm: 165.1 cm, Wt-k.53 kg. * ???Past Orders: ???Lab:HEMOGLOBIN A1C (GLYCO HEMOGLOBIN) (Order Date - 08/10/2024) (Collection Date & Time - 10/27/2024 10:43 AM) ? Value Reference Range ?HEMOGLOBIN A1C % (HH) 6.8 * Examination: ???Ophthalmology Referral: ?DIABETES EYE EXAM?Procedure Performed:?Yes ?Date of Exam Performed?08/10/2024 ?Diabetic Retinopathy Screening:?Yes ?Retinal Screening Performed:?Yes ?Findings of Diabetic Eye Exam:?no retinopathy?Nails: ?NAILS are:?Elongated, overgrown, dystrophic, lytic, greater than 3mm thick, discolored and friable with crumbly malodorous subungual debris, with pain on palpation, TA, T1, T2, T3, T4, T5, T6, T7, T8, T9.?Orthopedic: ?MUSCLE STRENGTH:?5/5 all groups in a symmetrical fashion, B/L.?FOOT MORPHOLOGY:?(-) Charcot collapse/destruction noted at MTJ.?DIGITAL DEFORMITIES:?Digital contracture, PIPJ, 2-5 B/L, incompl-reducible to push-up test, no over, nor underlapping,?there is?evidence of shoe producing skin irritation.?FOOTWEAR EVALUATION:?worn, non-supportive, shoe gear properties exacerbate patient's foot/toe deformity.?Dermatologic: ?SKIN FINDINGS:?Skin exam reveals normal texture, elasticity, and turgor. There are no masses. The interspaces are clear, B/L, Skin exam reveals Keratotic lesion(s) located at, Medial plantar, IPJ, TA, Medial plantar, IPJ, T4, Dorsal, PIPJ, T9, Plantar Heel(s), B/L.?Vascular: ?DP PULSES (B):?3/4, B/L.?PT PULSES (B):?3/4, B/L.?CAPILLARY FILL TIME:?immediate, all digits, B/L.?TROPHIC CONDITION-TEXTURE/ELASTICITY/TURGOR/HAIR GROWTH (B):?normal, B/L.?TEMPERTURE GRADIENT (C):?normal, warm to cool, proximal to distal, B/L, B/L.?PIGMENTATION:?normal, B/L.?EDEMA (C):?absent, B/L.?CLAUDICATION (C):?denies, B/L.?REST PAIN:?denies, B/L.?Neurological: ?SENSORY:?Neurological exam reveals intact sensorium, pain sensation normal, vibration sensation intact, pinprick sensation is normal in the lower extremities, 5.07 monofilament test performed at plantar aspects of 5 varied sites per foot shows sensation, normal, B/L, Pt denies, anesthesia, burning, paresthesia, tingling, B/L.?General Examination: ?GENERAL APPEARANCE:?Reveals a pleasant, alert, well nourished, well- developed, well hydrated individual, who demonstrates proper attention to hygiene/body habitus, and is in no acute distress, Pt serves as own historian for office visit today.?ORIENTED:?person, place, and time.?FOOT EXAM:?Lower Extremity Neurological Exam performed:?Yes Date ?Visual exam of foot performed:?Yes ?Date?10/27/2024 ?Footwear Evaluation?Footwear Evaluation performed:?Yes??? Assessment: * Assessment: 1.?Pain in right toe(s) - M7 9.674???2.?Tinea unguium - B35.1 (Primary)???3.?Pain in left toe(s) - M79.675???4.?Type 2 diabetes mellitus without complication - E11.9???5.?Other hammer toe(s) (acquired), right foot - M20.41???Specify :Chronic problem, Worse (4),Rx Management (4)???6.?Other hammer toe(s) (acquired), left foot - M20.42???Specify :Chronic problem, Worse (4),Rx Management (4)??? Plan: * Treatment: 2.?Other hammer toe(s) (acqu ired), right foot? Start Extra Depth Orthopedic Shoes (1 Pair) with Customized Heat Molded Multidensity Innersoles (3 Pair), as directed, Dx: NIDDM (E11.9), Hammertoe Foot Deformity (M20.41,M20.42), Preulcerative Skin Lesion(s) (L85.1), 1, Refills 0.?? Notes: Patient Educated with: DIABETIC FOOT CARE INSTRUCTIONS.pdf (DIABETIC FOOT CARE INSTRUCTIONS.pdf)?? * Procedures:?Debride Nail 6-10:?Nail debridement?Due to the clinical pathology outlined in the exam findings, performance of this nail treatment is medically necessary as its management by an unskilled/untrained nonprofessional would put this patients foot and overall health at risk. Therefore, debridement to affected nail(s), as described in exam ( TA, T1, T2, T3, T4, T5, T6, T7, T8, T9 ), was performed exclusively by the physician of record to reduce/remove overall nail length, girth, thickness, subungual debris, and necrotic tissue, by manual and/or electrical means through the use of a nail nipper and/or dremel-type centerless grinder tender, to a more viable healthy nail plate or bed tissue 6- 10 nails in total. Silver nitrate was used for any petechial bleeding as necessary. Definitive antifungal treatment options, both pharmaceutical and surgical, have been reviewed and discussed with the patient. The patient solely prefers the use of intermittent/as needed professional debridement services for their nail condition and understands the need for additional periodic treatments to maintain effectiveness in symptomatic relief - 18615.? * Procedure Codes:?31338 DEBRI DE NAIL, 6 OR MORE * Preventive Medicine:? ??Counseling:?Discussion:?-14: Office or other outpatient visit for the evaluation and management of an established patient, which required a medically appropriate history and/or examination and MODERATE level of DECISION MAKING for: 1 OR MORE CHRONIC PROBLEM(S) THATS WORSENING, 2 STABLE CHRONIC PROBLEMS, A NEWLY DIAGNOSED PROBLEM WITH UNCERTAIN PROGNOSIS, AN ACUTE COMPLICATED INJURY WITH MULTIPLE TREATMENT OPTIONS, OR AN ACUTE PROBLEM WITH ACCOMPANYING SYSTEMIC SYMPTOMS, THAT POSE(S) A MODERATE RISK OF MORBIDITY. THIS CONDITION MAY ALSO INCLUDE RX DRUG MANAGEMENT, OR A DECISON FOR MINOR SURGERY. The visit on the day of the encounter encompassed interpreting the data and educating the patient as to the nature of their condition, treatment options available according to their individual PMH, meds, allergies, and overall health/living conditions, as well as any potential risks or complications that may occur from a failure to adhere to, and participate in, the recommended course of therapy. The discussion included a complete verbal, and/or written explanation of the examination results, any x-rays taken, the proposed diagnosis, and outline of the treatment plan. A schedule for future care needs was also explained. The patient verbalized an understanding of the instructions at this time and agreed to be an active participant in their treatment. If the patient should think of any questions or concerns after the visit, I have encouraged the patient to call the office.?Diabetic Footcare:?The patient was advised against future self nail/callus care due to inherent risks for infection, loss of limb/life given diabetes.?Digital Surgery:?Digital surgery was discussed with the patient, We elected to try conservative treatment at the present time, due to the patients medical history and increased asssociated post-operative risks.?Digital Treatment:?HT- I explained to the patient the possible etiologies of Hammertoes, including genetics/foot type/shoegear/activity level/exercise routine and the risks/benefits of all the different treatment options for their pain including: No treatment at all, Rest, Ice, New/supportive/wider/deeper Shoegear, Digital Padding/Strapping/Taping/Bracing/Gel protective sleeves, Foot/Ankle AFO Bracing, Stretching exercises, Deep Tissue Massage, Arch support/shoe inserts with splay metatarsal padding, and Custom orthoses. I insisted that any digital devices be removed daily and not worn overnight for safety. The patient is to carefully examine the toes daily for any skin irritation while using any splinting or padding device. The advantages and disadvantages of each option were discussed and the patients questions re: shoegear, padding, custom vs prefabricated inserts, activity level, and consistency in home treatment regimens for optimal success were answered to their verbally confirmed satisfaction.?Shoe Gear Counseling:?SHOE Rx - The patient was counseled in great detail on their muscoloskeletal foot and toe deformities which coincided with the dermatological presentations visualized on exam. We discussed how their deformities put the integrity of their feet at risk for potential pedal complications which makes the accomidative diabetic shoes and cutomizable inserts medically necessary. We discussed the different shoe and insert treatment types and options, as well as the important advantages for adhering to regularly wearing these accomidative devices daily. The patient was made aware of the fact that a failure to abide by these recommedations may be deleterious to their foot health as they are able to prevent many pedal complications such as skin irritation, skin ulceration, infection, and even loss of toe/foot/leg/or life. Time was also spent with the patient dispensing and discussing proper diabetic footcare techniques including daily skin moisturization, daily foot inspection for any interruption in skin integrity including open lesions, or sign of infection such as redness/malodor/drainage/swelling. Also discussed and recommended were procedures regarding daily shoe inspection for the presence of internal foreign bodies as well as any visualized irregular shoe or insert wear. Patient questions re: shoes, inserts, and self foot inspections were answered to their satisfaction as the patient verbally confirmed a full understanding of the above information. A Rx for Extra Depth Orthopedic Shoes with 3 pair of custom heat-molded inserts was dispensed.? ??Screening/Special Tests:?Fall Risk?Screening:?No falls in the past year ?FALLS: Screening for Future Fall Risk?Have you had any falls with injury in the past year??No * Follow Up:?prn * Images: * Sign off status: Completed true * Provider:?Smith Giles DPM Date:?2024 Generated for Kevin cantu/Janee/Joby on:?11/05/2024 06:27 AM EDT History and Physical Notes * HPI (History of Present Illness) Category Sub-Category Detail Notes Category Not es Toe pain Location: B/L feet Duration: several years Course: worse Aggravated by: shoes, any pressure Treatments: change in shoes At Risk footcare Pt States Last PCP Visit: Date: Examination Category Sub-Category Detail Notes Category Not es Neurological SENSORY: Neurological exa m reveals intact sensorium, pain sensation normal, vibration sensation intact, pinprick sensation is normal in the lower extremities, 5.07 monofilament test performed at plantar aspects of 5 varied sites per foot shows sensation, normal, B/L, Pt denies, anesthesia, burning, paresthesia, tingling, B/L Dermatologic SKIN FINDINGS: Skin exam reveal s normal texture, elasticity, and turgor. There are no masses. The interspaces are clear, B/L, Skin exam reveals Keratotic lesion(s) located at, Medial plantar, IPJ, TA, Medial plantar, IPJ, T4, Dorsal, PIPJ, T9, Plantar Heel(s), B/L Orthopedic FOOT MORPHOLOGY: (-) Charcot col lapse/destruction noted at MTJ FOOTWEAR EVALUATION: worn, non-supportiv e, shoe gear properties exacerbate patient's foot/toe deformity DIGITAL DEFORMITIES: Digital contracture , PIPJ, 2-5 B/L, incompl-reducible to push-up test, no over, nor underlapping, there is evidence of shoe producing skin irritation MUSCLE STRENGTH: 5/5 all groups in a symmetrical fashion, B/L General Examination GENERAL APPEARANCE: Reveals a pleasant, alert, well nourished, well-developed, well hydrated individual, who demonstrates proper attention to hygiene/body habitus, and is in no acute distress, Pt serves as own historian for office visit today FOOT EXAM: Lower Extremity Neurological Exa m performed:: Yes Date Visual exam of foot performed:: Yes Date: 10/27/2024 ORIENTED: person, place, and t moises Footwear Evaluation Footwear Evaluation performe d:: Yes Ophthalmology Referral DIABETES EYE EXAM Procedure Perform ed:: Yes ?Date of Exam Performed: 08/10/2024 Diabetic Retinopathy Screening:: Yes Retinal Screening Performed:: Yes Findings of Diabetic Eye Exam:: no retin opathy Vascular DP PULSES (B): 3/4, B/L PT PULSES (B): 3/4, B/L CAPILLARY FILL TIME: immediate, all digi ts, B/L TEMPERTURE GRADIENT (C): normal, warm to cool, proximal to distal, B/L, B/L TROPHIC CONDITION-TEXTURE/ELASTICITY/TURGOR/HAIR GROWTH (B): normal, B/L EDEMA (C): absent, B/L CLAUDICATION (C): denies, B/L REST PAIN: denies, B/L PIGMENTATION: normal, B/L Nails NAILS are: Elongated, overg rown, dystrophic, lytic, greater than 3mm thick, discolored and friable with crumbly malodorous subungual debris, with pain on palpation, TA, T1, T2, T3, T4, T5, T6, T7, T8, T9
--- OUTSIDE RECORDS SUMMARY | 2024-11-05 06:28 | XMS_ITS ---
Author Organization [facility] Address [address] [place] [address] Care Team Providers Care Conservation Enforcement Officer Name Role Phone Lindsey HACKETT, Charisse Roche Primary Care Provider Un available Smith Giles Unavailable [phone] REASON FOR VISIT cx 06/18 Encounters Encounter Location Date Provider Diagnosis [address] [address] 06/13/2023 Smith Giles Plan Of Treatment Next Appt Details Provider Name:Smith Giles , 01/26/2025 03:15:00 PM, [address] [place], [address], Progress Notes * Sandra TREJODOB:[birth year] (57 yo F)Acc No.[id number]:06/13/2023 Patient:?Sandra Trejo :1965???Age:57 Y???Sex:Female Address:[address] [place] [address] * true * Date:? Generated for Malgorzatai pepe/Gabeg/eTransmitting on:?11/05/2024 06:27 AM EDT
[2024-11-05 10:37] LABS: Estimated Average Glucose 148 mg/dL; Hemoglobin A1C 188.0541 umol/L; Hemoglobin A1c % 6.8 % (<6.0); Total Hemoglobin (HGBA1C) 3736.7141 umol/L
[2024-11-05 11:02] LABS: Alanine Aminotransferase 14 U/L (0-31); Anion Gap 11 (12-20); Aspartate Amino Transferase 17 U/L (5-31); Blood Urea Nitrogen 13 mg/dL (9-16); Calcium 9.4 mg/dL (8.4-10.2); Carbon Dioxide 25 mmol/L (22-29); Chloride 106 mmol/L (96-108); Cholesterol 150 mg/dL (<200); Estimated Glomerular Filt Rate > 60; Glucose Fasting 138 mg/dL (60-99); HDL Cholesterol 50 mg/dL (>40); LDL Cholesterol Calculated 74 mg/dL (<100); Potassium 4.4 mmol/L (3.3-5.1); Sodium 138 mmol/L (135-145); Triglycerides 130 mg/dL (<150)
[2024-11-05 11:05] LABS: Vitamin D 25-OH Total 36.8 ng/mL (>30)
[2024-11-05 11:21] LABS: Creatinine Urine 173.68 mg/dL; Microalbum/Creatinine Ratio Ur 6.9 ug/mg cr (<30)
== END 2024-11-05 06:26 | disposition home or self-care (01) ==
LOC: HO.HMGCLDS 06:25
PROVIDERS: PCP Internal Medicine; Visit Provider Internal Medicine
DX: E55.9 Vitamin D deficiency, unspecified (principal); I10 Essential (primary) hypertension; E78.00 Pure hypercholesterolemia, unspecified; E11.65 Type 2 diabetes mellitus with hyperglycemia
CPT/HCPCS: 36415; 80048; 80061; 82043; 82306; 82570; 83036; 84450; 84460

== ENCOUNTER 2024-11-12 15:43 | Outpatient (AMB) | payer OTHER, SELFPAY ==
--- NOTE | 2024-11-12 16:02 | MHC.PC.OV ---
Vital Signs 11/12/24 16:10 Height 5 ft 5 in Weight 211 lb BMI 35.1 BP 112/64 Blood Pressure Location Lt popliteal Position Sitting Respiration 15 Pulse 98 Pulse Source Pulse Oximeter Temp 98.1 F Temp Source Oral Pulse Oximetry (%) 96 Oxygen Delivery Method Room Air Intake Visit Reasons: PE Intake Note: Pt is here today for her PE: last mammogram 07/24/22, papsmear 05/11/22, colonoscopy 06/06/22 Allergies No Known Allergies [No Known Allergies*] Allergy (Verified 11/15/24 16:39) Medication List - Last Reconciled 11/15/24 by Charisse Portillo MD Farxiga (dapagliflozin propanediol) 10 mg PO QAM NS lisinopril 2.5 mg PO DAILY metformin 1,000 mg PO BID 90 days minoxidil 1.25 mg PO DAILY simvastatin 5 mg PO QPM spironolactone 25 mg PO BID Zepbound (tirzepatide (weight loss)) 5 mg (0.5 mL) subcut QWEEK 30 days NS Tobacco use date assessed: 11/12/24 Dental Screening Dental Screen Date: 11/12/24 Did you have a dental visit in the last 12 months?: Yes Did you have a dental problem in the last 6 months where you did not have access to dental care?: No Was dental information given to patient?: Patient has dentist HPI PE HPI Details 58-year-old lady with history of diabetes mellitus, hypertension obesity and dyslipidemia, here today for physical exam. She goes to [facility] for routine Pap and pelvic exam as well as for her screening mammogram, will get copy of latest mammogram and Pap smear results. She he is up-to-date with her colon cancer screening, with Cologuard test done 06/06/2022 showed negative findings, due again this year. She sees Dr. 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 [facility] Medical History Diabetes mellitus with hyperglycemia Vitamin D deficiency Type 2 diabetes mellitus without complication, with no history of insulin use Post-COVID chronic cough History of COVID-19 Right knee pain Lumbago syndrome Androgenetic alopecia Diabetes mellitus with hyperglycemia, without long-term current use of insulin Essential hypertension Rash of face Iron deficiency anemia Obesity (BMI 30-39.9) Hypercholesterolemia Surgical History Hx of cholecystectomy Hx of tubal ligation Family History Maternal Uncle Substance use disorder Maternal Grandmother Lung cancer Mother CVA (cerebral vascular accident) Social History Housing: House Patient Tobacco Use Status: Never used Tobacco e-Cigarette/Vaping Use: Never Used Second Hand Smoke Exposure: No service: No Current occupational status: employed Cognitive needs: No Hearing needs: No Vision needs: Yes Questionnaire PHQ-9 Over the last 2 weeks, how often have you been bothered by any of the following problems? 1. Little interest or pleasure in doing things: not at all 2. Feeling down, depressed, or hopeless: not at all 3. Trouble falling or staying asleep, or sleeping too much: several days 4. Feeling tired or having little energy: several days 5. Poor appetite or overeating: several days 6. Feeling bad about yourself - or that you are a failure or have let yourself or your family down: not at all 7. Trouble concentrating on things, such as reading the newspaper or watching television: not at all 8. Moving or speaking so slowly that other people could have noticed. Or the opposite - being so fidgety or restless that you have been moving around a lot more than usual: not at all 9. Thoughts that you would be better off or of hurting yourself in some way: not at all Total score: 3 Depression Screening Interpretation: Negative Depression Screening Done: Yes 73765 - PHQ-9 Billing: Yes Source: Developed by Drs. Hernan Barraza, Lina Chavarria, Brandon Prince and colleagues, with an educational sandra from [employer]. Thrive Questionnaire Date Thrive assessed: 11/12/24 I am a: Patient What is your living situation today?: I have a steady place to live Within the past 12 months, did the food you bought not last and you didn't have the money to get more?: I choose not to answer this question Within the past 12 months, did you worry whether your food would run out before you got money to buy more?: I choose not to answer this question Do you have trouble paying for medicines?: I choose not to answer this question Do you have trouble getting transportation to medical appointments?: I choose not to answer this question Do you have trouble paying your heating and electricity bill?: I choose not to answer this question Do you have trouble taking care of your child, family member or friend?: I choose not to answer this question Do you have trouble with day-to-day activities such as bathing, preparing meals, shopping, managing finances, etc.?: I choose not to answer this question Are you currently unemployed and looking for a job?: I choose not to answer this question Are you interested in more education?: I choose not to answer this question Please select the resources that you would like help with: None Currently or been in a relationship where the following occur: No concerns reported THRIVE Score: 0 AUDIT C Alcohol Use Questionnaire (AUDIT-C) 1. How often do you have a drink containing alcohol?: Monthly or less 2. How many drinks containing alcohol do you have on a typical day when you are drinking?: 1 or 2 3. How often do you have six or more drinks on one occasion?: Never Total Score: 1 OMKAR-7 AMB Questionnaire OMKAR-7 Date OMKAR - 7 assessed: 11/12/24 Feeling nervous, anxious, or on edge: 0 = Not at all Not being able to stop or control worryin = Not at all Worrying too much about different things: 0 = Not at all Trouble relaxin = Not at all Being so restless that it is hard to sit still: 0 = Not at all Becoming easily annoyed or irritable: 0 = Not at all Feeling afraid as if something awful might happen: 0 = Not at all Total OMKAR-7 score (0-4 normal; 5-9 mild; 10-14 moderate; 15-21 severe): 0 Source: Developed by Drs. Hernan Barraza, Lina Chavraria, Brandon Prince and colleagues, with an educational sandra from [employer] OMKAR-7 Assessment Billing OMKAR-7 Assessment Tool: OMKAR-7 Assessment 22530 Review of Systems Const Denies body aches, Denies fatigue, Denies fever(s), Denies headache(s), Denies weakness and Reports weight loss Eyes Details: Up-to-date with her diabetes retinopathy screening, goes [facility] Denies change in vision ENT Denies dizziness, Denies headache(s) and Denies nasal congestion Card Denies chest pain, Denies lightheadedness, Denies palpitations and Denies dyspnea Resp Reports as per HPI and Denies dyspnea GI Denies abdominal pain, Denies change in bowel habits and Denies heartburn Denies urinary frequency, Denies dysuria and Denies urinary urgency Musc Reports no additional complaints Skin/Breast Denies breast pain, Denies breast mass and Denies rash Neuro Denies dizziness, Denies headache(s) and Denies weakness Psych Reports no additional complaints Endo Denies fatigue and Denies palpitations Miki/Lymph Reports no additional complaints Aller/Immun Reports no additional complaints Physical exam (Primary Care) Vital Signs: Last Vital Signs Temp 98.1 F 11/12/24 16:10 Pulse 98 11/12/24 16:10 Resp 15 11/12/24 16:10 BP 112/64 11/12/24 16:10 Pulse Ox 96 11/12/24 16:10 Oxygen Delivery Method Room Air 11/12/24 16:10 BMI result Body Mass Index 35.1 Tobacco/Smoking Status: Tobacco use Status Tobacco use date assessed 11/12/24 11/12/24 16:06 Patient Tobacco Use Status Never used Tobacco 11/12/24 16:06 e-Cigarette/Vaping Use Never Used 11/12/24 16:06 PHQ-9: PHQ-9 Score PHQ-9: Total score 3 11/15/24 16:40 Depression Screening Interpretation: Negative Thrive Assessment: Date of Thrive Assessment Date Thrive assessed 11/12/24 11/12/24 16:06 Currently or been in a relationship where the following occur: No concerns reported Const General: comfortable and no acute distress Orientation/consciousness: patient oriented x3 HENMT Ears: external ears normal General nose exam: Normal external nose present Eyes General: appearance normal, both eyes and all related structures Neck Neck: Yes full ROM, Yes no lymphadenopathy and Yes supple Chest Breast/axilla palpation: normal palpation of the breasts Resp Effort & Inspection: normal respiratory effort and able to speak in complete sentences Auscultation: clear to auscultation bilaterally Cardio Rate: regular rate Rhythm: regular rhythm Heart sounds: S1 normal heart sound present and S2 normal heart sound present GI Palpation (GI): Soft to palpation, nontender and no guarding Auscultation: normal bowel sounds General: Yes no CVA tenderness and Yes deferred (Goes to [facility]) Back/Spine/Pelvis Back: no CVA tenderness and No back tenderness Skin General skin exam: no rashes or lesions noted Neuro General: patient oriented x3, gait normal, tone normal, moves all extremities, Normal light touch and pain sensation and no focal motor deficits Extrem General: Yes full ROM, Yes no calf tenderness and Yes normal gait Psych Appearance: grossly normal and well kempt Mental Status: mental status grossly normal Speech and movement: Normal speech and movement present Affect: normal affect Results Reviewed Results Reviewed: Laboratory Tests 11/05/24 11/05/24 06:30 06:35 Estimat Average Glucose 148 Hemoglobin A1c % 6.8 H Urine Creatinine 173.68 Urine Microalbumin 12.0 Microalb/Creat Ratio 6.9 Name: Sandra Trejo Age/Sex: 58/F : 1965 Unit#: [id number] Attend Dr: Charisse Portillo MD Re11/05/24 Status: DEP REF Location: [facility] Disch: SPEC : [id number] GINNY: 11/05/24 STATUS: COMP REQ : [id number] RECD: 11/05/[address]: Charisse Portillo MD COMP: 11/05/245 ENTERED: 11/05/24 [facility] DR: ORDERED: Met Prof Fast, AST, ALT, Lipid Panel, Vitamin D 25-OH Test Result Flag Reference Sodium 138 135-145 mmol/L Potassium 4.4 3.3-5.1 mmol/L CL 106 96-108 mmol/L CO2 25 22-29 mmol/L Gap 11 L 12-20 BUN 13 9-16 mg/dL Creat 0.81 0.5-1.4 mg/dL eGFR > 60 Chronic Kidney Disease: Estimated GFR < 60 mL/min/1.73m2 Severe Kidney Disease: Estimated GFR < 15 mL/min/1.73m2 FBS 138 H 60-99 mg/dL A fasting glucose of 126 mg/dl or greater on more than one occasion is considered diagnostic of diabetes. CA 9.4 8.4-10.2 mg/dL AST (GOT) 17 5-31 U/L ALT (GPT) 14 0-31 U/L Triglyceride 130 <150 mg/dL Desirable Triglyceride: less than 150 mg/dL Borderline High Triglyceride 150-199 mg/dL High Triglyceride: 200-499 mg/dL Very High Triglyceride: greater than or equal to 5OO mg/dL Cholesterol 150 <200 mg/dL Desirable Cholesterol: less than 200 mg/dL Borderline High Cholesterol: 200-239 mg/dL High Cholesterol: greater than 239 mg/dL LDL Calculated 74 <100 mg/dL Desirable LDL: less than 100 mg/dL Near Optimal/Above Optimal LDL: 110-129 mg/dL Borderline High LDL: 130-159 mg/dL High LDL: 160-189 mg/dL Very High LDL: greater than or equal to 190 mg/dL HDL 50 >40 mg/dL Desirable HDL: greater than 40 mg/dL Note: This HDL assay may give artificially low results in patients with liver disease. Vitamin D 25-OH 36.8 >30 ng/mL Health Based Reference Values* < 20 ng/mL Deficient 20-30 ng/mL Insufficient > 30 ng/mL Sufficient Coding Level of Care Code Est Pt Prev Care 40-64y(65108) Diagnoses Annual visit for general adult medical examination with abnormal findings Z. Hypercholesterolemia E78.00 Obesity (BMI 30-39.9) E66.9 Essential hypertension I10 Type 2 diabetes mellitus without complication, with no history of insulin use E11.9 Additional Codes OMKAR-7 Assessment Billing - OMKAR-7 Assessment Tool: OMKAR-7 Assessment 12791 ([id number]) PHQ-9 - 07304 - PHQ-9 Billing: Yes ([id number]) Assessment & Plan Assessment & Plan (1) Annual visit for general adult medical examination with abnormal findings: Code(s): Z00.01 - Encounter for general adult medical examination with abnormal findings Plan: Requested copy of last Pap smear and mammogram herself from [facility]. Patient due for a repeat Cologuard for colon cancer screening test this year, order sent. Up-to-date with her diabetes eye exam and diabetes foot care, sees Dr. Giles. Up-to-date with her shingles vaccine and flu shot, does not want to get COVID booster, pneumonia vaccine was recommended as she is a diabetic , but patient deferred getting vaccine today (2) Hypercholesterolemia: Code(s): E78.00 - Pure hypercholesterolemia, unspecified Category: Medical Plan: Continue simvastatin 5 mg on a tablet at bedtime (3) Obesity (BMI 30-39.9): Code(s): E66.9 - Obesity, unspecified Category: Medical Plan: Patient has gained some weight since last visit, will increase dose of Zepbound to 5 mg once a week, reinforced importance of adhering to a low-cholesterol diet and getting at least 30 minutes of moderate intensity exercise 3 to 4 times a week (4) Essential hypertension: Code(s): I10 - Essential (primary) hypertension Category: Medical Plan: Blood pressure at goal of less than 130/80. Continue with current medication. Reinforced importance of following a low sodium diet, getting regular exercise, and lowering stress levels. (5) Type 2 diabetes mellitus without complication, with no history of insulin use: Code(s): E11.9 - Type 2 diabetes mellitus without complications Category: Medical Plan: Diabetes mellitus controlled with hemoglobin A1c at 6.8%. She also has not been able to lose any further weight. Increased Zepbound do 5 mg once a week, metformin a 1000 mg twice a day and Farxiga 10 mg 1 tablet in the morning Orders: Orders Hemoglobin A1c 04/07/25 E11.9 - Type 2 diabetes mellitus without complications, E55.9 - Vitamin D deficiency, unspecified, E66.9 - Obesity, unspecified, E78.00 - Pure hypercholesterolemia, unspecified, I10 - Essential (primary) hypertension Alanine Aminotransferase 04/07/25 E11.9 - Type 2 diabetes mellitus without complications, E55.9 - Vitamin D deficiency, unspecified, E66.9 - Obesity, unspecified, E78.00 - Pure hypercholesterolemia, unspecified, I10 - Essential (primary) hypertension Basic Metabolic Panel Fasting 04/07/25 E11.9 - Type 2 diabetes mellitus without complications, E55.9 - Vitamin D deficiency, unspecified, E66.9 - Obesity, unspecified, E78.00 - Pure hypercholesterolemia, unspecified, I10 - Essential (primary) hypertension Lipid Panel 04/07/25 E11.9 - Type 2 diabetes mellitus without complications, E55.9 - Vitamin D deficiency, unspecified, E66.9 - Obesity, unspecified, E78.00 - Pure hypercholesterolemia, unspecified, I10 - Essential (primary) hypertension TSH reflex Free T4 04/07/25 E11.9 - Type 2 diabetes mellitus without complications, E55.9 - Vitamin D deficiency, unspecified, E66.9 - Obesity, unspecified, E78.00 - Pure hypercholesterolemia, unspecified, I10 - Essential (primary) hypertension Aspartate Amino Transferase 04/07/25 E11.9 - Type 2 diabetes mellitus without complications, E55.9 - Vitamin D deficiency, unspecified, E66.9 - Obesity, unspecified, E78.00 - Pure hypercholesterolemia, unspecified, I10 - Essential (primary) hypertension Referrals Cologuard Test Z12.11 - Encounter for screening for malignant neoplasm of colon, Z12.12 - Encounter for screening for malignant neoplasm of rectum Medications: Changed From dapagliflozin propanediol (Farxiga) 10 mg PO QAM 90 tabs 1RF E11.65 - Type 2 diabetes mellitus with hyperglycemia To Farxiga (dapagliflozin propanediol) 10 mg PO QAM 90 tabs 4RF NS E11.65 - Type 2 diabetes mellitus with hyperglycemia From Zepbound (tirzepatide (weight loss)) for 4 weeks 2.5 mg (0.5 mL) subcut QWEEK 30 days 2 mL 2RF NS E11.65 - Type 2 diabetes mellitus with hyperglycemia, E66.9 - Obesity, unspecified To Zepbound (tirzepatide (weight loss)) for 4 weeks 5 mg (0.5 mL) subcut QWEEK 2 mL 5RF 30 days NS E11.65 - Type 2 diabetes mellitus with hyperglycemia, E66.9 - Obesity, unspecified Refilled metformin call to schedule PCP appt for more refills 1,000 mg PO BID 180 tabs 4RF 90 days
--- OUTSIDE RECORDS SUMMARY | 2024-11-12 16:09 | XMS_ITS ---
Author Organization [facility] Address [address] [place] [address] Care Team Providers Care Volumetric Weigher Name Role Phone Lindsey HACKETT, Charisse Roche Primary Care Provider Un available Tisha Smith Unavailable [phone] Allergies No Known Allergies REASON FOR VISIT [...] Ozempic Active Ciclopirox 0.77 % 1 application Extension Edger ally Twice a day for 365 days [...] Problem Acquired hammer toe of right foot ([id number] 105) Other hammer toe(s) (acquired), right foot (M20.41) Active confirmed Problem Acquired hammer toe of left foot ([id number] 103) Other hammer toe(s) (acquired), left foot (M20.42) Active confirmed Vital Signs Height 5 ft 5 in in 10/27/2024 Weight 204 lbs 10/27/2024 BMI 33.94 kg/m2 10/27/2024 Blood pressure systolic 120 mm Hg 10/28/19 25 Blood pressure diastolic 80 mm Hg 025 Procedures Procedure Date Ordered Date Performed Result Body Sit e 61325-IYTDCKR NAIL, 6 OR MORE 10/27/2024 N/A Encounters Encounter Location Date Provider Diagnosis [facility] [address] [address] 10/27/2024 Smith Giles Pain in right toe(s) [...] INSTRUCTIONS.pdf) Pending Test Test Name Order Date [id number]-[id number] NAIL, 6 OR MORE 10/27/2024 Next Appt Details Follow Up: prn, Reason: Provider Name:Smith Giles , 01/26/2025 03:15:00 PM, [address] [place] [address], [id number], Procedure Notes * Category Sub-Category Detail Notes [...] use of a nail nipper and/or dremel-type paint grinder stone mill, to a more viable healthy nail plate [...] to maintain effectiveness in symptomatic relief - 55570 Progress Notes * Sandra TREJODOB:[birth year] (58 yo F)Acc No.[id number]:10/27/2024 Progress Note Patient:?Sandra TREJO Provider:?Smith Giles DPM :1965???Age:58 Y???Sex:Female D ate:10/27/2024 Address:[address] , [facility] Pcp:Arthur Ross Subjective: * Chief Complaints: * [...] use of a nail nipper and/or dremel-type paint grinder stone mill, to a more viable healthy nail plate [...] to maintain effectiveness in symptomatic relief - 60000.? * Procedure Codes:?78548 DEBRI DE NAIL, 6 OR MORE * [...] Giles DPM Date:?2024 Generated for Kevin cantu/Janee/Joby on:?11/12/2024 04:09 PM EDT History and Physical Notes * HPI [...]
--- OUTSIDE RECORDS SUMMARY | 2024-11-12 16:09 | XMS_ITS ---
Author Name [facility] Organization Unknown History of Medication Use Medication Directions Dispensed Refills Start Date End Date Stat us benzonatate 200 mg capsule TAKE 1 CAPSULE BY MOUTH TWICE DAILY NEEDED FOR COUGH 4 completed doxycycline hyclate 100 mg tablet TAKE 1 CAPSULE BY MOUTH TWICE A DAY WITH FOOD 4 completed betamethasone dipropionate 0.05 % lotion APPLY ONCE TO TWICE DAILY TO THE SCALP NEEDED. active cholecalciferol (vitamin D3) 1,250 mcg (50,000 unit) capsule TAKE 1 CAPSULE BY MOUTH ONCE A WEEK active ciclopirox 0.77 % topical gel APPLY TOPICALLY TO AFFECTED AREA TWICE DAILY active clobetasol 0.05 % topical ointment APPLY OINTMENT TOPICALLY TWICE DAILY FOR 14 DAYS active fluconazole 150 mg tablet TAKE 1 CAPSULE BY MOUTH ONCE WEEKLY active ketoconazole 2 % topical cream APPLY TOPICALLY 2 TIMES A DAY FOR 14 DAYSAPPLY DIRECTED TO RASH ON LEFT ELBOW active metformin 1,000 mg tablet TAKE 1 TABLET BY MOUTH TWICE DAILY CALL TO SCHEDULE PCP APPT FOR MORE REFILLS active Vtama 1 % topical cream Apply to affected areas once daily active Problems Problem Status Onset Date Problem Type Date of Resoluti on Source Right achilles tendonitis active 2023-06-13 ProblemAct ENS_AONECT Encounters Encounter Type Encounter Reason Primary Diagnosis Location Date Ambulatory [facility] 07/11/2023 Ambulatory [facility] 06/18/2023 Ambulatory [facility] 06/18/2023 Ambulatory [facility] 06/14/2023 Ambulatory [facility] 06/13/2023 Ambulatory [facility] 06/13/2023 Ambulatory [facility] 06/13/2023 Ambulatory [facility] 06/12/2023
--- OUTSIDE RECORDS SUMMARY | 2024-11-12 16:09 | XMS_ITS | Patient Health Record ---
Author Organization [facility] Address [address] [place] [address] Care Team Providers Care Securities Adviser Name Role Phone Lindsey HACKETT, Charisse Primary Care Provider Treovn Sy Jr Unavailable Jyothi HACKETT, Dread Unavailable Unavailable Allergies No Known Allergies Results Component Value Reference Range Notes H pylori Ag Stool Reviewed date:07/28/2024 03:04:36 PM Interpretation: Performing Lab:[facility], [address] [place] [phone] Notes/Report: H pylori Ag Stool SEE NOTE HELICOBACTER PYLORI AG, EIA, STOOL Micro Number: [id number] Test Status: Final Specimen Source: Stool Specimen Quality: Adequate H.pylori Ag: Not Detected Antimicrobials, proton pump inhibitors, and bismuth preparations inhibit H. pylori and ingestion up to two weeks prior to testing may cause false negative results. If clinically indicated the test should be repeated on a new specimen obtained two weeks after discontinuing treatment. Reference Range: Not Detected THIS TEST WAS PERFORMED AT: [facility] [address] [place] [phone] VLAD LEMON MD Reason For Referral No Information Medications Medication SIG (Take, Route, Frequency, Duration) Notes Start Date End Date Status Zepbound 2.5 MG/0.5ML INJECT 1 SYRINGE SUBCUTANEOUSLY ONCE A WEEK FOR 4 WEEKS Subcutaneous for 28 E1165,Unavail able Active Minoxidil 2.5 MG Oral for 90 A ctive Spironolactone 50 MG TAKE 1 TABLET BY [facility] TWICE DAILY Oral for 30 L6611,Unavail able Active Farxiga 10 MG Oral for 30 Acti ve Lisinopril 2.5 MG Oral for 90 Active Simvastatin 5 MG Oral for 90 A ctive Immunizations Vaccine Route Administration Date Status Comme nts Influenza Unknown 06/10/2024 Administered Social History Tobacco Use: Social History Observation Description Date Details (start date - stop date) Never Smoker NA - NA Tobacco Use/Smoking Question Answer Notes Patient is a nonsmoker Alcohol Screen Question Answer Notes Did you have a drink contain ing alcohol in the past year? Yes How often did you have a dri nk containing alcohol in the past year? Monthly or less (1 point) How many drinks did you have on a typical day when you were drinking in the past year? 3 or 4 drinks (1 point) How often did you have 6 or more drinks on one occasion in the past year? Never (0 point) Points 2 Interpretation Negative Problems Problem Type SNOMED Code ICD Code Onset Dates Problem Status W/U Status Risk Notes Problem [id number] Oropharyngeal dysphagia (R13.12) Active confirmed Problem 589254359 Abnormal UGI series (R93.3) Active confirmed Vital Signs Temperature 97.5 degrees Fahrenheit 06/24/2024 Blood pressure diastolic 00 mm Hg 06/24/2024 Height 5 ft 5 in in 06/24/2024 Blood pressure systolic 000 mm Hg 06/24/2024 Weight 211 lb 8 oz lbs 06/24/2024 BMI 35.19 kg/m2 06/24/2024 Encounters Encounter Location Date Provider Diagnosis [facility] [address] [place] [address] 06/24/2024 Trevon Coronado Jr Oropharyngeal dysphagia R13.12 and Abnormal UGI series R93.3 [facility] [address] [place] [address] 07/28/2024 Trevon Coronado Jr Assessments Encounter Date Diagnosis (ICD Code) Assessment Notes Treatment Notes Treatment Clinical Notes Section Notes 06/24/2024 Oropharyngeal dysphagia (ICD-10 - R13.12) We discussed oral pharyngeal dysphagia today. We discussed the findings on her upper GI series today in detail. She could undergo a trial of a proton pump inhibitor but prefers to defer this at this time. We also discussed endoscopy which she would like to hold off on. She is interested in pursuing allergy evaluation and we gave her information on [facility]. We also recommended stool testing for H. pylori. If this is positive, treatment should be considered based on the findings on her upper GI series. 06/24/2024 Abnormal UGI series (ICD-10 - R93.3) We discussed oral pharyngeal dysphagia today. We discussed the findings on her upper GI series today in detail. She could undergo a trial of a proton pump inhibitor but prefers to defer this at this time. We also discussed endoscopy which she would like to hold off on. She is interested in pursuing allergy evaluation and we gave her information on [facility]. We also recommended stool testing for H. pylori. If this is positive, treatment should be considered based on the findings on her upper GI series. Plan Of Treatment Pending Test Test Name Order Date H PYLORI AG, STOOL 06/24/2024 Insurance Providers Payer Name Payer Address Payer Phone Subscriber Number Group Number Insured Name Patient Relationship to Insured Coverage Start Date Coverage End Date [facility] [address] [place] [address] [phone] [id number] BERT MENDEZ Self - patient is the insured Medical (General) History Medical History History ICD Code Diabetes mellitus type 2 Hypertension Hyperlipidemia Arthritis/fibromyalgia Alopecia Vertical Elevated body mass index Stool DNA testing -05/29 negative result Surgical History Surgery Date(Month/Year) Cholecystectomy Tubal ligation
--- OUTSIDE RECORDS SUMMARY | 2024-11-12 16:09 | XMS_ITS ---
Author Organization [facility] Address [address] [place] [address] Care Team Providers Care Firer Retort Name Role Phone Lindsey HACKETT, Charisse Primary Care Provider Dina Coronado Jr, Trevon Landa [phone] Jyothi HACKETT, Dread Unavailable Unavailable REASON FOR VISIT throat issues Encounters Encounter Location Date Provider Diagnosis [facility] [address] [place] [address] 09/14/2024 Trevon Coronado Jr Plan Of Treatment No Information Progress Notes * BERT MENDEZDOB:[birth year] (58 yo F)Acc No.[id number]:09/14/2024 Progress Notes Patient:?BERT MENDEZ Provider:?Trevon Coronado MD :1965???Age:58 Y???Sex:Female D ate:09/14/2024 Address:[address] [place], [place] [phone] Pcp:Charisse Portillo MD Subjective: * Chief Complaints: * ???1. Throat issues. * Medical History:? Objective: * Vitals:? Assessment: Plan: * Treatment: * * The named appointment provid er may or may not be the originator of this progress note, and it is not deemed complete until electronically signed by the appointment provider. Sign off status: Pending * Provider:?Trevon Coronado MD Date:?0 09/14/2024 Generated for Printi ng/Faxing/eTransmitting on:?11/12/2024 04:09 PM EDT
--- OUTSIDE RECORDS SUMMARY | 2024-11-12 16:09 | XMS_ITS ---
Author Organization [facility] Address [address] [place] [address] Care Team Providers Care Stoneworking Belt Sander Name Role Phone Lindsey HACKETT, Charisse Roche Primary Care Provider Un available Smith Giles Unavailable [phone] Encounters Encounter Location Date Provider Diagnosis [address] [address] 06/18/2023 Smith Giles Plan Of Treatment Next Appt Details Provider Name:Smith Giles , 01/26/2025 03:15:00 PM, [address] [place] [address], [phone], Progress Notes * Sandra TREJODOB:[birth year] (58 yo F)Acc No.[id number]:06/18/2023 Progress Note Patient:?Sandra TREJO Provider:?Smith Giles DPM :1965???Age:57 Y???Sex:Female D ate:06/18/2023 Address:[address] [place] [address] Pcp:Arthur Ross Subjective: * Chief Complaints: * ??? * Medical History:? Objective: * Vitals:? Assessment: Plan: * Treatment: * Images: * The named appointment provid er may or may not be the originator of this progress note, and it is not deemed complete until electronically signed by the appointment provider. Sign off status: Pending * Provider:?Smith Tisha, DPM Date:?2022 Generated for Kevin cantu/Janee/Joby on:?11/12/2024 04:09 PM EDT
--- OUTSIDE RECORDS SUMMARY | 2024-11-12 16:09 | XMS_ITS ---
Author Organization [facility] Address [address] [place] [address] Care Team Providers Care Brake Repairer Name Role Phone Lindsey HACKETT, Charisse Roche Primary Care Provider Un available Smith Giles Unavailable [phone] REASON FOR VISIT cx 06/18 Encounters Encounter Location Date Provider Diagnosis [address] [address] 06/13/2023 Smith Giles Plan Of Treatment Next Appt Details Provider Name:Smith Giles , 01/26/2025 03:15:00 PM, [address] [place], [address], Progress Notes * Sandra TREJODOB:[birth year] (57 yo F)Acc No.[id number]:06/13/2023 Patient:?Sandra Trejo :1965???Age:57 Y???Sex:Female Address:[address] [place] [address] * true * Date:? Generated for Printi ng/Fachilog/eTransmitting on:?11/12/2024 04:09 PM EDT
--- OUTSIDE RECORDS SUMMARY | 2024-11-12 16:09 | XMS_ITS ---
Author Organization [facility] Address [address] [place] [address] Care Team Providers Care Systems Software Manager Name Role Phone Lindsey HACKETT, Charisse Primary Care Provider Trevon Sy Jr Unavailable Jyothi HACKETT, Dread Unavailable Unavailable Allergies No Known Allergies REASON FOR VISIT Patient presents today for throat issues Medications Medication SIG (Take, Route, Frequency, Duration) Notes Start Date End Date Status Minoxidil 2.5 MG Oral for 90 A ctive Spironolactone 50 MG TAKE 1 TABLET BY [facility] TWICE DAILY Oral for 30 L6611,Unavail able Active Farxiga 10 MG Oral for 30 Acti ve Lisinopril 2.5 MG Oral for 90 Active Simvastatin 5 MG Oral for 90 A ctive Zepbound 2.5 MG/0.5ML INJECT 1 SYRINGE SUBCUTANEOUSLY ONCE A WEEK FOR 4 WEEKS Subcutaneous for 28 E1165,Unavail able Active Social History Tobacco Use: Social History [...] Problem Status W/U Status Risk Notes Problem 50286144 Oropharyngeal dysphagia (R13.12) Active confirmed Problem 719465499 Abnormal UGI series (R93.3) Active confirmed Vital Signs Temperature 97.5 degrees Fahrenheit 06/24/20 24 Blood pressure systolic 000 mm Hg 06/24/20 24 Blood pressure diastolic 00 mm Hg 024 Height 5 ft 5 in in 06/24/2024 Weight 211 lb 8 oz lbs 06/24/2024 BMI 35.19 kg/m2 06/24/2024 Encounters Encounter Location Date Provider Diagnosis [facility] [address] [place] [address] 06/24/2024 Trevon Ramsayord Jr Oropharyngeal dysphagia R13.12 and Abnormal UGI series R93.3 Assessments Encounter Date Diagnosis (ICD Code) Assessment [...] information on [facility]. We also recommended stool testing for H. [...] information on [facility]. We also recommended stool testing for H. pylori. If this is positive, treatment should be considered based on the findings on her upper GI series. Plan Of Treatment Pending Test Test Name Order Date H PYLORI AG, STOOL 06/24/2024 Next Appt Details Follow Up: 1 Year, Reason: Progress Notes * BERT MENDEZDOB:[birth year] (58 yo F)Acc No.[id number]:06/24/2024 Progress Notes Patient:?BERT MENDEZ Provider:?Trevon Coronado MD :1965???Age:58 Y???Sex:Female D ate:06/24/2024 Address:[address] [place], [place] [id number] Pcp:Charisse Portillo MD Subjective: * Chief Complaints: * ???1. Patient presents today for throat issues. * HPI: ???New symptom(s):? The patient is a pleasant 58-year-old woman seen today in consultation. She is referred because of an abnormal upper GI series. She describes a sensation of feeling like something is present in the esophagus. This is exacerbated by swallowing. She denies heartburn and denies peptic ulcer disease symptoms. Swallowing symptoms have been present for a couple of months. There were no precipitating or relieving factors. She had been using some NSAIDs but doesn't attribute this to causing her symptoms. She does report some postnasal drip. ?She was evaluated by ENT and reports examination was normal, including in direct laryngoscopy. She subsequently underwent a barium swallow which is reviewed in detail today. Gastric folds were thickened consistent with gastritis. We reviewed this today. * ROS:?General/Constitutional:?Change in appetite?denies.?Fatigue?denies.?ENT:?Patient denies?difficulty swallowing.?Respiratory:?Patient denies?shortness of breath.?Cardiovascular:?Patient denies?chest pain.?Gastrointestinal:?Comments?See HPI for details.?Genitourinary:?Difficulty urinating?denies.?Incontinence?denies.?Musculoskeletal:?Patient denies?muscle aches.?Skin:?Patient denies?pruritis.?Neurologic:?Patient denies?low back pain.?Psychiatric:?Patient denies?mental or physical abuse.? * Medical History:?Diabetes me llitus type 2, Hypertension, Hyperlipidemia, Arthritis/fibromyalgia, Alopecia, Vertical, Elevated body mass index, Stool DNA testing -05/29 negative result. * Surgical History:?Cholecyste ctomy , Tubal ligation . * Family History:?Father: dece ased, diagnosed with HTN (hypertension), Diabetes.?Mother: alive, diagnosed with Diabetes, HTN (hypertension).? No family history of liver cancer or colon cancer. Patient isn't sure of father's side of the family. * Social History:?Tobacco Use:?Tobacco Use/Smoking?Patient is a?nonsmoker.?Drugs/Alcohol:?Alcohol Screen?Did you have a drink containing alcohol in the past year??Yes,?How often did you have a drink containing alcohol in the past year??Monthly or less (1 point), How many drinks did you have on a typical day when you were drinking in the past year??3 or 4 drinks (1 point),?How often did you have 6 or more drinks on one occasion in the past year??Never (0 point),?Points?2,?Interpretation?Negative.?Miscellaneous:?Marital status: . Occupation: works full-time. * Medications:?Taking Simvasta tin 5 MG Tablet Oral , Taking Lisinopril 2.5 MG Tablet Oral , Taking Farxiga 10 MG Tablet Oral , Taking Spironolactone 50 MG Tablet TAKE 1 TABLET BY MOUTH TWICE DAILY Oral , Notes: L6611,Unavailable, Taking Minoxidil 2.5 MG Tablet Oral , Taking Zepbound 2.5 MG/0.5ML Solution Auto-injector INJECT 1 SYRINGE SUBCUTANEOUSLY ONCE A WEEK FOR 4 WEEKS Subcutaneous , Notes: E1165,Unavailable, Discontinued Wegovy 0.25 MG/0.5ML Solution Auto-injector INJECT 1 SYRINGE SUBCUTANEOUSLY ONCE A WEEK ADMINISTER WEEKS 1 THROUGH 4 OF THERAPY Subcutaneous , Notes: E119,Unavailable, Medication List reviewed and reconciled with the patient * Allergies:?N.K.D.A. Objective: * Vitals:?Wt: 211 lb 8 oz, Ht: 5 ft 5 in, BMI:35.19 Index, BP: 000/00 mm Hg, Temp: 97.5. * Examination: ???General Examination: ?GENERAL APPEARANCE:?in no acute distress.?HEAD:?normocephalic.?EYES:?sclera non-icteric.?ORAL CAVITY:?mucosa moist.?NECK/THYROID:?no lymphadenopathy.?SKIN:?anicteric.?HEART:?S1, S2 normal, no murmurs.?LUNGS:?clear to auscultation bilaterally.?CHEST:?normal shape and expansion.?ABDOMEN:?soft, nontender, nondistended, bowel sounds present, no organomegaly .?EXTREMITIES:?no clubbing, cyanosis, or edema.?PSYCH:?cognitive function intact.? Assessment: * Assessment: 1.?Oropharyngeal dysphagia - R13.12 (Primary)?2.?Abnormal UGI series - R93.3? We discussed oral pharyngeal dysphagia today. We [...] information on [facility]. We also recommended stool testing for H. pylori. If this is positive, treatment should be considered based on the findings on her upper GI series. Plan: * Treatment: 2.?Abnormal UGI series?LAB: H PYLORI AG, STOOL * Procedure Codes:?3017F COLOR ECTAL CA SCREEN DOC REV, G9903 Pt scrn tbco id as non user, G9744 PATIENT NOT ELIG D/T ACTIVE DX HTN * Preventive Medicine:? ??Counseling:?Care goal follow-up plan:?Above Normal BMI Follow-up?Giving encouragement to exercise,?BMI management provided?Yes.? * Follow Up:?1 Year * * Sign off status: Completed true * Provider:?Trevon Coronado MD Date:?1 08/25/2023 Generated for Kevin cantu/Janee/Patriciaitting on:?11/12/2024 04:09 PM EDT History and Physical Notes * HPI (History of Present Illness) Category Sub-Category Detail Notes Category Not es New symptom(s) The patient is a pleasant 58-year-old woman seen today in consultation. She is referred because of an abnormal upper GI series. She describes a sensation of feeling like something is present in the esophagus. This is exacerbated by swallowing. She denies heartburn and denies peptic ulcer disease symptoms. Swallowing symptoms have been present for a couple of months. There were no precipitating or relieving factors. She had been using some NSAIDs but doesn't attribute this to causing her symptoms. She does report some postnasal drip. She was evaluated by ENT and reports examination was normal, including in direct laryngoscopy. She subsequently underwent a barium swallow which is reviewed in detail today. Gastric folds were thickened consistent with gastritis. We reviewed this today. Examination Category Sub-Category Detail Notes Category Not es General Examination GENERAL APPEARANCE: in no acute di stress HEAD: normocephalic EYES: sclera non-icteric NECK/THYROID: no lymphadenopathy HEART: S1, S2 normal, no mu rmurs CHEST: normal shape and exp ansion LUNGS: clear to auscultatio n bilaterally ABDOMEN: soft, nontender, non distended, bowel sounds present, no organomegaly SKIN: anicteric EXTREMITIES: no clubbing, cyanosi s, or edema PSYCH: cognitive function i ntact ORAL CAVITY: mucosa moist
[2024-11-12 16:10] VITALS: BP 112/64; PULSE 98; RESP 15; TEMP 36.7; O2SAT 96; BMI 35.1
--- OUTSIDE RECORDS SUMMARY | 2024-11-12 16:10 | XMS_ITS | Patient Health Record ---
Author Organization [facility] Address [address] [place] [address] Care Team Providers Care Paralegal Legal Secretary Name Role Phone Lindsey HACKETT, Charisse Roche Primary Care Provider Un available Tisha Smith Unavailable [phone] Allergies No Known Allergies Results Component Value [...] day Active Ciclopirox 0.77 % 1 application Night Shift Manager ally Twice a day for 365 days [...] Problem Acquired hammer toe of right foot (434925201485973 5) Other hammer toe(s) (acquired), right foot (M20.41) Active confirmed Problem Acquired hammer toe of left foot (441877905168426 3) Other hammer toe(s) (acquired), left foot (M20.42) Active confirmed Problem Type 2 diabetes mellitus without complication (609690570) Type 2 diabetes mellitus without complication (E11.9) Active confirmed Vital Signs Blood pressure diastolic 80 mm Hg 10/27/2024 Height 5 ft 5 in in 10/27/2024 Blood pressure systolic 120 mm Hg 10/27/2024 Weight 204 lbs 10/27/2024 BMI 33.94 kg/m2 10/27/2024 Procedures Procedure Date Ordered Date Performed Result Body Sit e 93635-UXJAXPZ NAIL, 6 OR MORE 10/27/2024 N/A Encounters Encounter Location Date Provider Diagnosis [facility] [address] [place] [address] 10/27/2024 Smith Giles Pain in right toe(s) [...] Treatment Pending Test Test Name Order Date [id number] NAIL, 6 OR MORE 10/27/2024 Next Appt Details Provider Name:Smith Giles , 01/26/2025 03:15:00 PM, [address] [place] [address], [phone], Insurance Providers Payer Name Payer Address Payer Phone Subscriber Number Group Number Insured Name Patient Relationship to Insured Coverage Start Date Coverage End Date [facility] [address] [place] [address] [id number] Varghese Beasley Spouse - patient is the spouse of the insured Medical (General) History Medical History History ICD Code Anxiety Back,Hip,and Knee pain type II diabetes Fibromyalgia Headaches/Migraines High blood pressure Psoriasis/eczema Chicken pox Hypercholesterolemia Surgical History Surgery Date(Month/Year) tubal ligation 06/04/2001
--- OUTSIDE RECORDS SUMMARY | 2024-11-12 16:10 | XMS_ITS ---
Author Organization [facility] Address [address] [place] [address] Care Team Providers Care Shop Technician Name Role Phone Lindsey HACKETT, Charisse Primary Care Provider Dina Coronado Jr, Trevon Unavailable Jyothi HACKETT, Dread Unavailable Unavailable REASON FOR VISIT labs Encounters Encounter Location Date Provider Diagnosis [facility] [address] [place] [address] 07/28/2024 Trevon Coronado Jr Plan Of Treatment No Information Progress Notes * BERT MENDEZDOB:[birth year] (58 yo F)Acc No.[id number]:07/28/2024 Patient:?BERT MENDEZ :1965???Age:58 Y???Sex:Female Address:[address] [place] [address], [address] * true * Date:? Generated for Malgorzatai pepe/Janee/eTransmitting on:?11/12/2024 04:10 PM EDT
== END 2024-11-12 16:46 | disposition home or self-care (01) ==
LOC: HO.HMCC 15:44
PROVIDERS: PCP Internal Medicine; Visit Provider Internal Medicine
DX: Z00.01 Encounter for general adult medical examination with abnormal findings (principal); E11.9 Type 2 diabetes mellitus without complications; E66.9 Obesity, unspecified; Z68.35 Body mass index [BMI] 35.0-35.9, adult; E78.00 Pure hypercholesterolemia, unspecified; I10 Essential (primary) hypertension

== ENCOUNTER → 2024-11-12 15:43 | Outpatient (BNVA) | payer OTHER, SELFPAY | PROVIDERS: PCP Internal Medicine; Visit Provider Internal Medicine | DX: Z00.01 Encounter for general adult medical examination with abnormal findings (principal); E78.00 Pure hypercholesterolemia, unspecified; I10 Essential (primary) hypertension; E66.9 Obesity, unspecified; Z68.35 Body mass index [BMI] 35.0-35.9, adult; E11.9 Type 2 diabetes mellitus without complications; Z79.84 Long term (current) use of oral hypoglycemic drugs; Z79.899 Other long term (current) drug therapy | CPT/HCPCS: 96127 ==

== ENCOUNTER 2025-02-19 14:34 | Outpatient (AMB) | payer OTHER, SELFPAY ==
--- OUTSIDE RECORDS SUMMARY | 2025-01-26 11:15 | XMS_ITS ---
Author Organization [facility] Address [address] [place] [address] Care Team Providers Care Chief Administrative Officer Name Role Phone Lindsey HACKETT, Charisse Roche Primary Care Provider Un available Smith Giles Unavailable [phone] Medications Medication SIG (Take, Route, Frequency, Duration) Notes Start Date End Date Status Ciclopirox 0.77 % 1 application Solutions Executive Security ally Twice a day; Duration: 365 days [...] Active Encounters Encounter Location Date Provider Diagnosis [facility] [address] [place] [address] 01/26/2025 Smith Giles Plan Of Treatment No Information Progress Notes * Sandra [birth year]REJODOB:[birth year] (59 yo F)Acc No.[id number]:01/26/2025 Progress Note Patient: Sanjuana Sandra OHANG Provider: Vipul Giles DPM :1965 A ge:59 Y S ex:Female Date:01/26/2025 Address:[address] [place], [place] [id number] Pcp:Arthur Ross Subjective: * Chief Complaints: * [...] Pending * Provider: Vipul Giles DPM Date: 01/26/2025 Generated for Kevin cantu/Janee/Joby on: 0 02/19/2025 02:38 PM EDT
[2025-02-19 14:37] VITALS: BP 110/60; PULSE 90; TEMP 36.7; O2SAT 98; BMI 34.8
--- NOTE | 2025-02-19 14:37 | MHC.OFFWIV ---
Intake Vital Signs 02/19/25 14:37 Height 5 ft 5 in Weight 209 lb BMI 34.8 BP 110/60 Blood Pressure Location Rt brachial Position Sitting Pulse 90 Pulse Source Pulse Oximeter Temp 98.0 F Temp Source Oral Pulse Oximetry (%) 98 Oxygen Delivery Method Room Air Intake Visit Reasons: EP Allergic reaction on lips Intake Note: presents with tingling, swelling and chapped lips after eating a macadamia nut the night before- similar reaction to eating a snack with peanut butter another time Patient Tobacco Use Status: Never used Tobacco Allergies No Known Allergies (No Known Allergies*) Allergy (Verified 02/19/25 14:41) Do you need a note to return to daycare/school/sports/work: No HPI HPI Comments History of Present Illness Details History - The patient is a 59-year-old female presenting with lip swelling and tingling. - Recurrent episodes of lip swelling have been noted, with the latest being severe and occurring this morning. - Symptoms include tingling and burning, worsened by lip balm application. - Possible association with nut consumption, specifically peanut butter and macadamia nuts, though not consistently observed and delayed reactions of up to a day. - Lisinopril, taken for hypertension, has been used for several years. - No throat swelling or breathing difficulties reported. - Symptom management includes allergy meds and topical Benadryl cream. - Blood pressure is well-controlled on a low dose of lisinopril, with readings around 110/60 mmHg. Physical Exam General: Cooperative, healthy appearing, comfortable, no acute distress and well developed Orientation: Patient oriented x3 Limitations: No limitations Head: Normal to inspection Ears: Hearing grossly normal bilaterally Nose: Normal External nose present Face and sinus: Normal facial exam Mouth: Lips with edema Eyes: Swelling noted, appearance not normal Neck: Normal visual inspection and Yes full ROM Respiratory: Normal respiratory effort and able to speak in complete sentences. Skin: no rashes or lesions noted Neuro: Patient oriented x3 Extremities: moving all extremities normally [facility] Medical History Diabetes mellitus with hyperglycemia Vitamin D deficiency Type 2 diabetes mellitus without complication, with no history of insulin use Post-COVID chronic cough History of COVID-19 Right knee pain Lumbago syndrome Androgenetic alopecia Diabetes mellitus with hyperglycemia, without long-term current use of insulin Essential hypertension Rash of face Iron deficiency anemia Obesity (BMI 30-39.9) Hypercholesterolemia Surgical History Hx of cholecystectomy Hx of tubal ligation Family History Maternal Uncle Substance use disorder Maternal Grandmother Lung cancer Mother CVA (cerebral vascular accident) Social History Housing: House Patient Tobacco Use Status: Never used Tobacco e-Cigarette/Vaping Use: Never Used Second Hand Smoke Exposure: No service: No Current occupational status: employed Cognitive needs: No Hearing needs: No Vision needs: Yes Review of Systems Const All systems reviewed & are unremarkable except as noted in HPI and below Physical Exam Vital Signs: Last Vital Signs Temp 98.0 F 02/19/25 14:37 Pulse 90 02/19/25 14:37 BP 110/60 02/19/25 14:37 Pulse Ox 98 02/19/25 14:37 Oxygen Delivery Method Room Air 02/19/25 14:37 BMI result Body Mass Index 34.8 Assessment & Plan Assessment & Plan (1) Angioedema due to angiotensin converting enzyme inhibitor (NEL-I): Code(s): T78.3XXA - Angioneurotic edema, initial encounter; T46.4X5A - Adverse effect of wncjsthyvjw-ptdzqyyjzc-otfduz inhibitors, initial encounter Plan: Plan Patient was informed and verbally consented to the use of an ambient scribe for clinic note documentation during this visit Angioedema - Discontinue lisinopril and monitor blood pressure at home for 1-2 weeks. - Meet with a Nurse Navigator to review BP's and determine if she needs a different BP medication. - Prescribed a short course of prednisone to reduce swelling, 20mg/day x 5 days. - Advised to use Benadryl and Pepcid as needed for symptom management. - Instructed to seek emergency care if symptoms of throat swelling or difficulty breathing occur. - Advised to avoid nuts and monitor for any allergic reactions. - Prescribed Epi-pen to be used in case of emergencies, explained how to use but Pharmacist can review instructions at pick up and delivery driver as well. - Messaged PCP to advise 2.5mg lisinopril was discontinued due to angioedema Medications: New prednisone 20 mg PO QAM 5 tabs 0RF epinephrine for 2 doses 0.3 mg (0.3 mL) IM Q15M PRN 2 ea 0RF anaphylaxis Discontinued lisinopril Discontinued Reason: Doctor's Order 2.5 mg PO DAILY 90 tabs 1RF Coding Level of Care Code Est Pt Level 4 (47528) Diagnoses Angioedema due to angiotensin converting enzyme inhibitor (NEL-I) T78.3XXA; T46.4X5A
--- OUTSIDE RECORDS SUMMARY | 2025-02-19 14:38 | XMS_ITS | Patient Health Record ---
Author Organization [facility] Address [address] [place] [id number] Care Team Providers Care Insole Rasper Name Role Phone Lindsey HACKETT, Charisse Primary Care Provider Trevon Sy Jr Unavailable [phone] Jyothi HACKETT, Dread Unavailable Unavailable Allergies No Known Allergies Results Component Value Reference Range Notes H pylori Ag Stool Reviewed date:07/28/2024 03:04:36 PM Interpretation: Performing Lab:[facility], [address] [place] [id number] Notes/Report: H pylori Ag Stool SEE NOTE HELICOBACTER PYLORI AG, EIA, STOOL Micro Number: [id number] Test Status: Final Specimen Source: Stool Specimen [...] Not Detected THIS TEST WAS PERFORMED AT: [facility] [address] [place] [id number] VLAD LEMON MD Reason For Referral No Information Medications Medication SIG (Take, Route, Frequency, Duration) Notes Start Date End Date Status Zepbound 2.5 MG/0.5ML INJECT 1 SYRINGE SUBCUTANEOUSLY ONCE A WEEK FOR 4 WEEKS Subcutaneous for 28 E1165,Unavail able Active Minoxidil 2.5 MG Oral for 90 A ctive Spironolactone 50 MG TAKE 1 TABLET BY [facility] TWICE DAILY Oral for 30 L6611,Unavail [...] Problem Status W/U Status Risk Notes Problem [id number] Oropharyngeal dysphagia (R13.12) Active confirmed Problem [id number] Abnormal UGI series (R93.3) Active confirmed Vital Signs Temperature 97.5 degrees Fahrenheit 06/24/2024 Blood pressure diastolic 00 mm Hg 06/24/2024 Height 5 ft 5 in in 06/24/2024 Blood pressure systolic 000 mm Hg 06/24/2024 Weight 211 lb 8 oz lbs 06/24/2024 BMI 35.19 kg/m2 06/24/2024 Encounters Encounter Location Date Provider Diagnosis [facility] [address] [place] [phone] 06/24/2024 Trevon Coronado Jr Oropharyngeal dysphagia R13.12 and Abnormal UGI series R93.3 [facility] [address] [place] [phone] 07/28/2024 Trevon Coronado Jr Assessments Encounter Date [...] information on [facility]. We also recommended stool testing for H. [...] information on [facility]. We also recommended stool testing for H. pylori. If this is positive, treatment should be considered based on the findings on her upper GI series. Plan Of Treatment Pending Test Test Name Order Date H PYLORI AG, STOOL 06/24/2024 Insurance Providers Payer Name Payer Address Payer Phone Subscriber Number Group Number Insured Name Patient Relationship to Insured Coverage Start Date Coverage End Date [employer] [address] [place] [address] [id number] BERT MENDEZ Self - patient is the insured Medical (General) History Medical History History ICD Code Diabetes mellitus type 2 Hypertension Hyperlipidemia Arthritis/fibromyalgia Alopecia Vertical Elevated body mass index Stool DNA testing -05/29 negative result Surgical History Surgery Date(Month/Year) Cholecystectomy Tubal ligation
--- OUTSIDE RECORDS SUMMARY | 2025-02-19 14:38 | XMS_ITS ---
[facility] Unknown History of Medication Use [...] Diagnosis Location Date Ambulatory [facility] 07/11/2023 Ambulatory [facility] 06/18/2023 Ambulatory [facility] 06/18/2023 Ambulatory [facility] 06/14/2023 Ambulatory [facility] 06/13/2023 Ambulatory [facility] 06/13/2023 Ambulatory [facility] 06/13/2023 Ambulatory [facility] 06/12/2023
== END 2025-02-19 15:22 | disposition home or self-care (01) ==
PROVIDERS: PCP Internal Medicine; Visit Provider Physician Assistant
DX: T78.3XXA Angioneurotic edema, initial encounter (principal); T46.4X5A Adverse effect of angiotensin-converting-enzyme inhibitors, initial encounter

== ENCOUNTER 2025-04-21 15:33 | Outpatient (AMB) | payer OTHER, SELFPAY ==
--- OUTSIDE RECORDS SUMMARY | 2024-09-14 07:20 | XMS_ITS ---
Author Organization [facility] Address [address] [place] [address] Care Team Providers Care Spearer Name Role Phone Lindsey HACKETT, Charisse Primary Care Provider Dina Coronado Jr, Trevon Landa Jyothi HACKETT, Dread Unavailable Unavailable REASON FOR VISIT throat issues Encounters Encounter Location Date Provider Diagnosis [facility] [address] [place] [phone] 09/14/2024 Treovn Coronado Jr Plan Of Treatment No Information Progress Notes * VANESSA BERTDOB:[birth year] (59 yo F)Acc No.[id number]:09/14/2024 Progress Notes Patient: BERT COOK Provider: Danuta Coronado MD :1965 A ge:58 Y S ex:Female Date:09/14/2024 Address:[address] [place], [place] [id number] Pcp:Charisse Portillo MD Subjective: * Chief Complaints: [...] 0 09/14/2024 Generated for Kevin cantu/Janee/eTransmitting on: 1 07:01 PM EDT
--- OUTSIDE RECORDS SUMMARY | 2025-01-26 11:15 | XMS_ITS ---
Author Organization [facility] Address [address] [place] [address] Care Team Providers Care Tool Analyst Name Role Phone Lindsey HACKETT, Charisse Roche Primary Care Provider Un available Smith Giles Unavailable [phone] Medications Medication SIG (Take, Route, Frequency, Duration) Notes Start Date End Date Status Ciclopirox 0.77 % 1 application Metalsmith Apprentice ally Twice a day; Duration: 365 days [...] Active Encounters Encounter Location Date Provider Diagnosis [facility] [address] [place] [address] 01/26/2025 Smith Giles Plan Of Treatment No Information Progress Notes * Sandra TREJODOB:[birth year] (59 yo F)Acc No.[id number]:01/26/2025 Progress Note Patient: Sanjuana Sandra HOANG Provider: Vipul Giles DPM :1965 A ge:59 Y S ex:Female Date:01/26/2025 Address:[address] [place], [place] [address] Pcp:Arthur Ross Subjective: * Chief Complaints: * [...] 0 01/26/2025 Generated for Kevin cantu/Janee/Joby on: 1 07:01 PM EDT
--- NOTE | 2025-04-21 15:42 | A.OFFPC_ITS ---
Vital Signs 04/21/25 15:46 Height 5 ft 5 in Weight 206 lb BMI 34.3 BP 110/70 Blood Pressure Location Rt brachial Position Sitting Respiration 16 Pulse 90 Pulse Source Pulse Oximeter Temp 98.1 F Temp Source Oral Pulse Oximetry (%) 98 Oxygen Delivery Method Room Air Intake Visit Reasons: 5 mo. f/u Intake Note: Pt is here today for her 5mo. f/u Adolescent Counselor Required: No Allergies No Known Allergies (No Known Allergies*) Allergy (Verified 04/21/25 15:53) Medication List - Last Reconciled 04/21/25 by Charisse Portillo MD epinephrine 0.3 mg (0.3 mL) IM Q15M PRN Farxiga (dapagliflozin propanediol) 10 mg PO QAM NS metformin 1,000 mg PO BID 90 days minoxidil 1.25 mg PO DAILY simvastatin 5 mg PO QPM spironolactone 25 mg PO BID Tobacco use date assessed: 04/21/25 Dental Screening Dental Screen Date: 04/21/25 Did you have a dental visit in the last 12 months?: Yes Did you have a dental problem in the last 6 months where you did not have access to dental care?: No Was dental information given to patient?: Patient has dentist [facility] Medical History (Updated 04/21/25 @ 16:14 by Charisse Portillo MD) Tinea unguium Diabetes mellitus with hyperglycemia Vitamin D deficiency Type 2 diabetes mellitus without complication, with no history of insulin use Post-COVID chronic cough History of COVID-19 Right knee pain Lumbago syndrome Androgenetic alopecia Diabetes mellitus with hyperglycemia, without long-term current use of insulin Essential hypertension Rash of face Iron deficiency anemia Obesity (BMI 30-39.9) Hypercholesterolemia Surgical History Hx of cholecystectomy Hx of tubal ligation Family History Maternal Uncle Substance use disorder Maternal Grandmother Lung cancer Mother CVA (cerebral vascular accident) Social History Housing: House Patient Tobacco Use Status: Never used Tobacco e-Cigarette/Vaping Use: Never Used Second Hand Smoke Exposure: No service: No Current occupational status: employed Cognitive needs: No Hearing needs: No Vision needs: Yes Questionnaire PHQ-9 Over the last 2 weeks, how often have you been bothered by any of the following problems? 1. Little interest or pleasure in doing things: not at all 2. Feeling down, depressed, or hopeless: not at all 3. Trouble falling or staying asleep, or sleeping too much: several days 4. Feeling tired or having little energy: several days 5. Poor appetite or overeating: several days 6. Feeling bad about yourself - or that you are a failure or have let yourself or your family down: not at all 7. Trouble concentrating on things, such as reading the newspaper or watching television: not at all 8. Moving or speaking so slowly that other people could have noticed. Or the opposite - being so fidgety or restless that you have been moving around a lot more than usual: not at all 9. Thoughts that you would be better off or of hurting yourself in some way: not at all Total score: 3 Depression Screening Interpretation: Negative Depression Screening Done: Yes Source: Developed by Drs. Hernan Barraza, Lina Chavarria, Brandon Prince and colleagues, with an educational sandra from [employer]. Thrive Questionnaire Date Thrive assessed: 11/12/24 I am a: Patient What is your living situation today?: I have a steady place to live Within the past 12 months, did the food you bought not last and you didn't have the money to get more?: I choose not to answer this question Within the past 12 months, did you worry whether your food would run out before you got money to buy more?: I choose not to answer this question Do you have trouble paying for medicines?: I choose not to answer this question Do you have trouble getting transportation to medical appointments?: I choose not to answer this question Do you have trouble paying your heating and electricity bill?: I choose not to answer this question Do you have trouble taking care of your child, family member or friend?: I choose not to answer this question Do you have trouble with day-to-day activities such as bathing, preparing meals, shopping, managing finances, etc.?: I choose not to answer this question Are you currently unemployed and looking for a job?: I choose not to answer this question Are you interested in more education?: I choose not to answer this question Please select the resources that you would like help with: None Currently or been in a relationship where the following occur: No concerns reported THRIVE Score: 0 AUDIT C Alcohol Use Questionnaire (AUDIT-C) 1. How often do you have a drink containing alcohol?: Monthly or less 2. How many drinks containing alcohol do you have on a typical day when you are drinking?: 1 or 2 3. How often do you have six or more drinks on one occasion?: Never Total Score: 1 OMKAR-7 AMB Questionnaire OMKAR-7 Date OMKAR - 7 assessed: 11/12/24 Feeling nervous, anxious, or on edge: 0 = Not at all Not being able to stop or control worryin = Not at all Worrying too much about different things: 0 = Not at all Trouble relaxin = Not at all Being so restless that it is hard to sit still: 0 = Not at all Becoming easily annoyed or irritable: 0 = Not at all Feeling afraid as if something awful might happen: 0 = Not at all Total OMKAR-7 score (0-4 normal; 5-9 mild; 10-14 moderate; 15-21 severe): 0 Source: Developed by Drs. Hernan Barraza, Lina Chavarria, Brandon Prince and colleagues, with an educational sandra from [employer]. Physical exam (Primary Care) Vital Signs: Last Vital Signs Temp 98.1 F 04/21/25 15:46 Pulse 90 04/21/25 15:46 Resp 16 04/21/25 15:46 BP 110/70 04/21/25 15:46 Pulse Ox 98 04/21/25 15:46 Oxygen Delivery Method Room Air 04/21/25 15:46 BMI result Body Mass Index 34.3 Tobacco/Smoking Status: Tobacco use Status Tobacco use date assessed 04/21/25 04/21/25 15:51 Patient Tobacco Use Status Never used Tobacco 04/21/25 15:51 e-Cigarette/Vaping Use Never Used 04/21/25 15:51 PHQ-9: PHQ-9 Score PHQ-9: Total score 3 04/21/25 16:22 Depression Screening Interpretation: Negative Thrive Assessment: Date of Thrive Assessment Date Thrive assessed 11/12/24 04/21/25 15:51 Currently or been in a relationship where the following occur: No concerns reported Office Procedures Flu Questionnaire Does the patient have a severe egg allergy?: No Does the patient have severe life threatening allergies?: No Does the patient have a fever or illness today?: No Has the patient ever had Guillain-Appleton Syndrome?: No Has the patient ever had any past reaction to a flu shot?: No Immunizations Fluarix [id number] (PF) 45 mcg (15 mcg x 3)/0.5 mL IM syringe Performing Provider: Charisse Portillo MD Performing [place] [facility] Administered by: Anusha Vargas CMA on 04/21/25 16:24 Dose Route Admin Location Dispensed Lot Number Expiration Date [facility] Road Roller Engineer 0.5 mL IM Right Deltoid 0.5 mL [id number] 12/28/25 [id number] [employer]KLINE VIS Given Date VIS Provided VIS Publication Date 04/21/25 Single Vaccine 24 Eligibility Eligibility Date Funding Source Not [facility] Eligible 04/21/25 Private Coding Diagnoses Diabetes mellitus with hyperglycemia E11.65 Hypercholesterolemia E78.00 Essential hypertension I10 Assessment & Plan Assessment & Plan (1) Diabetes mellitus with hyperglycemia: Code(s): E11.65 - Type 2 diabetes mellitus with hyperglycemia Category: Medical (2) Hypercholesterolemia: Code(s): E78.00 - Pure hypercholesterolemia, unspecified Category: Medical (3) Essential hypertension: Code(s): I10 - Essential (primary) hypertension Category: Medical Orders: Orders Hemoglobin A1c 05/22/25 E11.65 - Type 2 diabetes mellitus with hyperglycemia, E78.00 - Pure hypercholesterolemia, unspecified, I10 - Essential (primary) hypertension Aspartate Amino Transferase 05/22/25 E11.65 - Type 2 diabetes mellitus with hyperglycemia, E78.00 - Pure hypercholesterolemia, unspecified, I10 - Essential (primary) hypertension Alanine Aminotransferase 05/22/25 E11.65 - Type 2 diabetes mellitus with hyperglycemia, E78.00 - Pure hypercholesterolemia, unspecified, I10 - Essential (primary) hypertension Basic Metabolic Panel Fasting 05/22/25 E11.65 - Type 2 diabetes mellitus with hyperglycemia, E78.00 - Pure hypercholesterolemia, unspecified, I10 - Essential (primary) hypertension Influenza [id number] Immunization Today Z23 - Encounter for immunization Lipid Panel 05/22/25 E11.65 - Type 2 diabetes mellitus with hyperglycemia, E78.00 - Pure hypercholesterolemia, unspecified, I10 - Essential (primary) hyp ertension Vitamin D 25-OH Total 05/22/25 E11.65 - Type 2 diabetes mellitus with hyperglycemia, E78.00 - Pure hypercholesterolemia, unspecified, I10 - Essential (primary) hypertension Referrals Podiatry Referral B35.1 - Tinea unguium, E11.65 - Type 2 diabetes mellitus with hyperglycemia Medications: New acyclovir 5% 1 appl topical 6XD 30 grams 0RF 7 days
[2025-04-21 15:46] VITALS: BP 110/70; PULSE 90; RESP 16; TEMP 36.7; O2SAT 98; BMI 34.3
--- OUTSIDE RECORDS SUMMARY | 2025-04-21 19:01 | XMS_ITS | Data Portability ---
Author Organization [place] [facility] Gadiel Begum AONE [place] Address [address] [place] [address] Care Team Providers Care Rod Drawer Name Role Phone CHANTELL PINEDA Primary Care Provider Assessment Encounter Date Assessment Date Assessment LastModified by Organization Details LastModified Time 06/13/2023 06/13/2023 We discussed today her diagnosis of right-sided insertional Achilles tendinitis. We discussed nonoperative management including wearing a boot, tendon rest, anti-inflammatori es, physical therapy, stretching, treatments like EPAT, dry needling, or laser treatments, and ultimately surgical intervention. I fracture a boot however I am hesitant to have her wear this as this may worsen her right knee and low back pain. I also offered her a heel wedge which she will purchase online. I will also send a prescription of meloxicam to the pharmacy. Side effects reviewed. GI precautions reviewed. Not available 06/13/2023 14:35:22 06/18/2023 06/18/2023 HPI : Patient is here today with complaints of bilateral knee pain. T he patient is experiencing bilateral knee pain, which is moderate in intensity, and has recently worsened. The right knee is the worse knee. The pain limits some activities of daily living. Walking tolerance is reduced. Pain and restriction of function are moderate at this time. She is doing home exercises. She is taking jaal-bok-nnheyve medications. Review of systems is negative for other rapidly progressive neurological disorder, chest pain, shortness of breath, fevers, chills, or any signs of active or persistent local or systemic infection. Physical Exam : Patient is well nourished, well-developed, in no acute distress, with appropriate mood and affect. The patient is oriented to time, place, and person. Bilateral knee motion is reduced and does cause significant pain. The right knee moves from 0-130 degrees and the left knee moves from 0-130 degrees. The knees are stable within those knagtc-vo-qzbvwx. The alignment of the right knee is neutral. The alignment of the left knee is neutral. Knee muscle strength is normal bilaterally with the skin intact. Pedal pulses are palpable. Hip examination, including flexion and internal rotation, was negative in that groin pain was not produced. Assessment/Plan : The patient has bilateral knee arthritis. An extensive discussion was conducted on the natural history of the disease and the variety of surgical and non-surgical options available to the patient including, but not limited to non-steroidal anti-inflammatory medications, steroid injections, viscosupplementat ion, physical therapy, maintenance of ideal body weight, and reduction of activity. She would like to continue conservative management at this time which I think is reasonable. Her preference is to follow-up as needed. Corticosteroid injection can be considered in the future if symptoms worsen. Not available 06/18/2023 16:27:57 07/11/2023 07/11/2023 We discussed today her diagnosis of insertional Achilles tendinitis. She has found some relief with her heel lifts, but continues to have ongoing pain. We discussed trialing a cam walker boot, although she does have ipsilateral knee pain and this certainly may be bothersome to her need to be in a boot. She would like a refill on her meloxicam which was also refilled. We discussed a course of formal physical therapy to work on eccentric calf stretching. However, she has a very high deductible and would like to try just about home exercises so she was recommended to perform exercises for Achilles tendinitis. We can see how she does. She may ultimately benefit from a boot and formal physical therapy. She will follow-up with me as needed. [email or web address] Not available 07/11/2023 21:10:51 Plan of Treatment Reminders Order Date Submit Date Provider Last Modified By Organization Details Last Modified Time Details Appointments None recorded. Lab None recorded. Referral None recorded. Procedures None recorded. Surgeries None recorded. Imaging XR, knee, 4 or more view 2022 023 [email or web address] [facility], [address], [address], [place], [address], 3 16:25:22 XR, knee, 4 or more view 2022 023 [email or web address] [facility], [address], [address], [place], [address], 3 16:25:22 XR, ankle, 3 or more view - RT ANKLE WEIGHTBEARI NG 2022 023 [facility], [address], [address], [place], [address], 3 15:42:34 Medication Orders meloxicam 15 mg tablet [address] [facility], [address] [place] [address], [address], 4 21:07:30 Patient TargetsNo targets recorded. Patient Instructions Encounter Date Encounter Id Patient Instructions Last Modified By Organization Details Last Modified Time 06/13/2023 [id number] X-rays of the right ankle were obtained which demonstrates a mortise in anatomic alignment. Small calcaneal osteophyte. Collapse in Meary's line. [email or web address] Not available 06/13/2023 14:35:37 06/18/2023 [id number] AP, lateral, Eaton, and patellar view radiographs of the left knee taken today demonstrate left knee degenerative joint disease with joint space narrowing, osteophyte formation, and subchondral sclerosis. AP, lateral, Eaton, and patellar view radiographs of the right knee taken today demonstrate right knee degenerative joint disease with joint space narrowing, osteophyte formation, and subchondral sclerosis Not available 06/18/2023 16:28:06 07/11/2023 [id number] AP, lateral, Eaton, and patellar view radiographs of the left knee taken today demonstrate left knee degenerative joint disease with joint space narrowing, osteophyte formation, and subchondral sclerosis. AP, lateral, Eaton, and patellar view radiographs of the right knee taken today demonstrate right knee degenerative joint disease with joint space narrowing, osteophyte formation, and subchondral sclerosis X-rays of the right ankle were obtained which demonstrates a mortise in anatomic alignment. Small calcaneal osteophyte. Collapse in Meary's line. Not available 07/11/2023 12:16:59 Reason for Referral None Reported. Results Created Date Observation Date Name Description Value Unit Range Abnormal Flag Note LastModifiedBy Organization Detail LastModifiedTime 06/13/20 XR, ankle , 3 or more view No observ ation record ed. [email or web address] [facility] [address], [place], [address], 06/13/2023 16:20:23 Result Notes None recorded. Problems Name Problem SNOMED Code Status Onset Date Resolution Date Notes Provider Name and Address Organization Details Recorded Time Right Achilles tendinitis 1773722742975 02 Active 2022 BEKA ALEX PA-C [address], [place], [address], [place] [facility], 3 14:35:43 Problem Notes None recorded. Medical Equipment None Reported. Allergies No known drug allergies Medications Name Sig Start Date Stop Date Status Note LastModified by Organization Details LastModified Time desoximetas one 0.05 % topical cream PLEASE SEE ATTACHED FOR DETAILED DIRECTION S active Not Available Not Available No t Available fluconazole 150 mg tablet TAKE 1 CAPSULE BY MOUTH ONCE WEEKLY active Not Available Not Available No t Available benzonatate 200 mg capsule TAKE 1 CAPSULE BY MOUTH TWICE DAILY NEEDED FOR COUGH 07/11 completed Not Available Not Available Not Available meloxicam 15 mg tablet TAKE 1 TABLET BY MOUTH ONCE DAILY NEEDED active Not Available Not Available No t Available minoxidil 2.5 mg tablet TAKE 1/2 (ONE-HALF ) TABLET BY MOUTH ONCE DAILY FOR HAIR LOSS active Not Available Not Available No t Available amoxicillin 875 mg tablet TAKE 1 TABLET BY MOUTH TWICE A DAY FOR 7 DAYS 07/11 completed Not Available Not Available Not Available simvastatin 5 mg tablet TAKE 1 TAB ORALLY EVERY EVENING active Not Available Not Available No t Available metformin 1,000 mg tablet TAKE 1 TABLET BY MOUTH TWICE DAILY CALL TO SCHEDULE PCP APPT FOR MORE REFILLS active Not Available Not Available No t Available clobetasol 0.05 % topical ointment APPLY OINTMENT TOPICALLY TWICE DAILY FOR 14 DAYS active Not Available Not Available No t Available estradiol 0.01% (0.1 mg/gram) vaginal cream APPLY 1 GM VAGINALLY DAILY AT BEDTIME FOR 2 WEEKS, THEN TWICE WEEKLY active Not Available Not Available No t Available ketoconazol e 2 % topical cream APPLY TOPICALLY 2 TIMES A DAY FOR 14 DAYSAPPLY DIRECTED TO RASH ON LEFT ELBOW active Not Available Not Available No t Available betamethaso ne dipropionat e 0.05 % lotion APPLY ONCE TO TWICE DAILY TO THE SCALP NEEDED. active Not Available Not Available No t Available lisinopril 2.5 mg tablet TAKE 1 TABLET BY MOUTH EVERY DAY active Not Available Not Available No t Available doxycycline hyclate 100 mg tablet TAKE 1 CAPSULE BY MOUTH TWICE A DAY WITH FOOD 07/11 completed Not Available Not Available Not Available ciclopirox 0.77 % topical gel APPLY TOPICALLY TO AFFECTED AREA TWICE DAILY active Not Available Not Available No t Available simvastatin active Not Available Not A vailable Not Available lisinopril active Not Available Not Av ailable Not Available Tylenol active Not Available Not Avail able Not Available metformin active Not Available Not Beatrice ilable Not Available cholecalcif amrit (vitamin D3) 1,250 mcg (50,000 unit) capsule TAKE 1 CAPSULE BY MOUTH ONCE A WEEK active Not Available Not Available No t Available Farxiga 10 mg tablet TAKE 1 TABLET BY MOUTH ONCE DAILY IN THE MORNING active Not Available Not Available No t Available Farxiga active Not Available Not Avail able Not Available Ozempic 0.25 mg or 0.5 mg (2 mg/1.5 mL) subcutaneou s pen injector INJECT 0.25MG SUBCUTANE OUSLY EVERY WEEK FOR 4 DOSES 07/11 completed Not Available Not Available Not Available Ozempic 07/11 completed Not Available Not Available Not Available Vtama 1 % topical cream Apply to affected areas once daily active Not Available Not Available No t Available Ozempic 0.25 mg or 0.5 mg (2 mg/3 mL) subcutaneou s pen injector INJECT 0.5 MG (0.4 ML) SUBCUTANE OUSLY ONCE A WEEK active Not Available Not Available No t Available Vitals Date Recorded Body height Body mass index (BMI) Body weight Provider Name and Address Organization Details Last Updated DateTime 07/11/2023 165.1 cm 36.4 kg/m2 [address]3862.[address] [place] [facility] 07/11/2023 15:24:53 Date Recorded Body height Body mass index (BMI) Body weight Provider Name and Address Organization Details Last Updated DateTime 06/13/2023 165.1 cm 35.8 kg/m2 58345.36 g BEKA ALEX PA-C [address], [place], [address], [place] [facility] 06/13/2023 14:34:38 Date Recorded Body height Body mass index (BMI) Body weight Provider Name and Address Organization Details Last Updated DateTime 06/18/2023 165.1 cm 36.4 kg/m2 27102.73 g Pastora Early [place] [facility] 06/18/2023 16:01:10 Social History None recorded. Functional Status Question Answer Note LastModified by Organizat ion Details LastModified Time What is your level of alcohol consumption? Occasional [email or web address] Information not available 07/11/2023 Mental Status None recorded. Family History Nothing Reported. Medical History Condition Response Rheumatoid Arthritis Y Anemia Y Diabetes Y Hypertension Y Gynecological HistoryNo gynecological history recorded. Obstetrics History GPAL:G 0 P 0 0 0 0 Past Encounters Encounter ID Performer Location Encounter Start Date Encounter Closed Date Diagnosis/Indication Diagnosis SNOMED-CT Code Diagnosis ICD10 Code Diagnosis IMO Codes Diagnosis Note [id number] BEKA ALEX PA-C [place] [id number] 06/13/2023 13:02:27 06/13/2023 14:27:54 Pain of right ankle joint [id number] 6201153 M25.571 Right Achi lles tendinitis 5154805018 92085 M76.61 [id number] Joey Marshall MD [place] [id number] 06/18/2023 15:24:58 06/18/2023 16:24:41 Pain of right knee joint 3250384236 80821 M25.561 Pain of le ft knee joint 0492514780 28961 M25.562 [id number] Ida King MD [place] [id number] 07/11/2023 14:37:55 07/11/2023 15:37:20 Right Achilles tendinitis 3489611272 59673 M76.61 Health Concerns Section Related Observation LastModified by Organization Detai ls LastModified Time None Recorded Concern Status LastModified by Organization Details LastModified Time None Recorded Advance Directives Directive None Recorded Payers Insurance Date Sequence Insurance Name Policy Number Policy Ray Covered Member ID Ray Member ID Guarantor Name 07/08/2023 1 [place] ([place] [id number] Varghese Trejo [id number] Sandra Trejo Notes Date Note Type Note Provider Name and Address Organization Details Recorded Time 06/13/2023 text/html Sandra Trejo is a 57 year old female who presents to the office today for evaluation regarding her right about 1-1/2 months ago she began developing pain at the back of her ankle. At the same time she also noticed right knee pain and low back pain. She was recommended to come to our office for further evaluation. Her current pain is a 6/10 on average, and a 9/10 at its worst. This is aching and burning in nature. She denies any previous injuries. She believes this is related to footwear but is unsure. Her pain is constant. She has pain going up and down the stairs. She has pain in the morning. She has been trying omgt-kok-xzaetci inserts and taking quch-pag-vziqvrm analgesics with no improvement in symptoms. Past medical history significant for anemia, type 2 diabetes with an A1c of 6.2 controlled with metformin, hypertension, psoriasis. She is unsure if she has rheumatoid arthritis, there is certainly no medications that reflect this however she has seen rheumatology in the past.She is also on Ozempic. She works as an chartered accountant. She does not smoke. She drinks socially. BEKA ALEX PA-C [address], [place], [address], [place] [facility] 06/13/2023 14:36:06 07/11/2023 text/html Sandra Trejo is a 57 year old female who presents today approximately 1 month after she was initially evaluated for repeat evaluation regarding her right Achilles tendon. She reports that some days it is slightly better and other days it is worse again. She did obtain heel lifts that she has put in her shoes. Her pain continues to be aching and shooting and a 7-10 out of 10. It is moderate to severe and overall the same. She does walk for exercise around the mall or the outlets but is unsure how far she walks. She has taken meloxicam and Aleve. From 06/13/23: presents to the office today for evaluation regarding her right about 1-1/2 months ago she began developing pain at the back of her ankle. At the same time she also noticed right knee pain and low back pain. She was recommended to come to our office for further evaluation. Her current pain is a 6/10 on average, and a 9/10 at its worst. This is aching and burning in nature. She denies any previous injuries. She believes this is related to footwear but is unsure. Her pain is constant. She has pain going up and down the stairs. She has pain in the morning. She has been trying qqbc-ihl-tvsxddh inserts and taking hqld-zwl-wqzzewd analgesics with no improvement in symptoms. Past medical history significant for anemia, type 2 diabetes with an A1c of 6.2 controlled with metformin, hypertension, psoriasis. She is unsure if she has rheumatoid arthritis, there is certainly no medications that reflect this however she has seen rheumatology in the past.She is also on Ozempic. She works as an chartered accountant. She does not smoke. She drinks socially. Ida King MD [address], [place], [address], [place] [facility] 07/11/2023 21:11:03 OBGyn Episode No OBEpisode recorded.
--- OUTSIDE RECORDS SUMMARY | 2025-04-21 19:02 | XMS_ITS | Patient Health Record ---
Author Organization [facility] Address [address] [place] [phone] Care Team Providers Care Import Export Manager Name Role Phone Lindsey HACKETT, Charisse Primary Care Provider Trevon Sy Jr Unavailable [phone] Jyothi HACKETT, Dread Unavailable Unavailable Allergies No Known Allergies Results Component Value Reference Range Notes H pylori Ag Stool Reviewed date:07/28/2024 03:04:36 PM Interpretation: Performing Lab:[facility], [address] [place] [id number] Notes/Report: H pylori Ag Stool SEE NOTE HELICOBACTER PYLORI AG, EIA, STOOL Micro Number: [id number] Test Status: Final Specimen Source: Stool Specimen [...] Not Detected THIS TEST WAS PERFORMED AT: [facility] [address] [place] [id number] VLAD LEMON MD Reason For Referral No Information Medications Medication SIG (Take, Route, Frequency, Duration) Notes Start Date End Date Status Zepbound 2.5 MG/0.5ML INJECT 1 SYRINGE SUBCUTANEOUSLY ONCE A WEEK FOR 4 WEEKS Subcutaneous; Duration: 28 65,Unavail able Active Minoxidil 2.5 MG Oral; Duration: 90 Active Spironolactone 50 MG TAKE 1 TABLET BY [facility] TWICE DAILY Oral; Duration: 30 L661,Unavail able Active Farxiga 10 MG Oral; Duration: 30 Active Lisinopril 2.5 MG Oral; Duration: 90 Active Simvastatin 5 MG Oral; Duration: 90 Active Immunizations Vaccine Route Administration Date Status Comme [...] Problem Status W/U Status Risk Notes Problem Oropharyngeal dysphagia (83083089) Oropharyngeal dysphagia (R13.12) Active confirmed Problem Abnormal UGI series (R93.3) Active confirmed Vital Signs Temperature 97.5 degrees Fahrenheit 06/24/2024 Blood pressure diastolic 00 mm Hg 06/24/2024 Height 5 ft 5 in in 06/24/2024 Blood pressure systolic 000 mm Hg 06/24/2024 Weight 211 lb 8 oz lbs 06/24/2024 BMI 35.19 kg/m2 06/24/2024 Encounters Encounter Location Date Provider Diagnosis [facility] [address] [place] [phone] 06/24/2024 Trevon Coronado Jr Oropharyngeal dysphagia R13.12 and Abnormal UGI series R93.3 [facility] [address] [place] [phone] 07/28/2024 Trevon Coronado Jr Assessments Encounter Date [...] information on [facility]. We also recommended stool testing for H. [...] information on [facility]. We also recommended stool testing for H. pylori. If this is positive, treatment should be considered based on the findings on her upper GI series. Plan Of Treatment Pending Test Test Name Order Date H PYLORI AG, STOOL 06/24/2024 Insurance Providers Payer Name Payer Address Payer Phone Subscriber Number Group Number Insured Name Patient Relationship to Insured Coverage Start Date Coverage End Date [facility] [address] [place] [address] [id number] BERT MENDEZ Self - patient is the insured Medical (General) History Medical History History ICD Code Diabetes mellitus type 2 Hypertension Hyperlipidemia Arthritis/fibromyalgia Alopecia Vertical Elevated body mass index Stool DNA testing -05/29 negative result Surgical History Surgery Date(Month/Year) Cholecystectomy Tubal ligation
--- OUTSIDE RECORDS SUMMARY | 2025-04-21 19:02 | XMS_ITS | Patient Health Record ---
Author Organization [facility] [place] Address [address] [place] [address] Care Team Providers Care Ion Implant Machine Operator Name Role Phone Lindsey HACKETT, Charisse Roche Primary Care Provider Un available Tisha Smith Unavailable [phone] Allergies No Known Allergies Results Component Value Reference Range Notes HEMOGLOBIN A1C (GLYCOHEMOGLO BIN) Reviewed date:10/27/2024 10:45:17 AM Interpretation: Performing Lab: Notes/Report: HEMOGLOBIN A1C % (HH) 6.8 Reason For Referral No Information Medications Medication SIG (Take, Route, Frequency, Duration) Notes Start Date End Date Status Ciclopirox 0.77 % 1 application Jboss Developer ally Twice a day; Duration: 365 days Not-Taking Extra Depth Orthopedic Shoes (1 Pair) with Customized Heat Molded Multidensity Innersoles (3 Pair) as directed Dx: NIDDM (E11.9), Hammertoe Foot Deformity (M20.41,M20.42), Preulcerative Skin Lesion(s) (L85.1) 10/27/2024 Active Lisinopril 2.5 MG 1 tablet Orally Once a day Active Farxiga 10 MG 1 tablet Orally Once a day Active Ozempic Active metFORMIN HCl 1000 MG 1 tablet with a me al Orally twice a day Active Vitamin D3 50 MCG (1999 UT) 1 capsule Orally Once a day Active Simvastatin 5 MG 2 tablets in the jaz fuad Orally Once a day Active Social History [...] Problem Acquired hammer toe of right foot (593304901392429 5) Other hammer toe(s) (acquired), right foot (M20.41) Active confirmed Problem Acquired hammer toe of left foot (809734484966466 3) Other hammer toe(s) (acquired), left foot (M20.42) Active confirmed Problem Type II diabetes mellitus without complication (135033373) Type 2 diabetes mellitus without complication (E11.9) Active confirmed Vital Signs Blood pressure diastolic 80 mm Hg 10/27/2024 Height 5 ft 5 in in 10/27/2024 Blood pressure systolic 120 mm Hg 10/27/2024 Weight 204 lbs 10/27/2024 BMI 33.94 kg/m2 10/27/2024 Procedures Procedure Date Ordered Date Performed Result Body Sit e 38724-YBVQRZQ NAIL, 6 OR MORE 10/27/2024 N/A Encounters Encounter Location Date [facility] [address] 10/27/2024 [place] Pain in right toe(s) M79.674 ; Tinea unguium B35.1 ; Pain in left toe(s) M79.675 ; Type 2 diabetes mellitus without complication E11.9 ; Other hammer toe(s) (acquired), right foot M20.41 and Other hammer toe(s) (acquired), left foot M20.42 [facility] [address] 01/12/2025 Smith G[place] [address] [address] 01/22/2025 [place] Assessments Encounter Date Diagnosis (ICD Code) Assessment [...] Treatment Pending Test Test Name Order Date [id number] NAIL, 6 OR MORE 10/27/2024 Insurance Providers Payer Name Payer Address Payer Phone Subscriber Number Group Number Insured Name Patient Relationship to Insured Coverage Start Date Coverage End Date [facility] [address] [place] [address] [id number] Varghese Beasley Spouse - patient is the spouse of the insured Medical (General) History Medical History History ICD Code Anxiety Back,Hip,and Knee pain type II diabetes Fibromyalgia Headaches/Migraines High blood pressure Psoriasis/eczema Chicken pox Hypercholesterolemia Surgical History Surgery Date(Month/Year) tubal ligation 06/04/2001
== END 2025-04-21 16:52 | disposition home or self-care (01) ==
LOC: HO.HMCC 15:34
PROVIDERS: PCP Internal Medicine; Visit Provider Internal Medicine
DX: Z23 Encounter for immunization (principal)

== ENCOUNTER → 2025-04-21 15:33 | Outpatient (BNVA) | payer OTHER, SELFPAY | PROVIDERS: PCP Internal Medicine; Visit Provider Internal Medicine | DX: E11.65 Type 2 diabetes mellitus with hyperglycemia (principal); E78.00 Pure hypercholesterolemia, unspecified; E78.5 Hyperlipidemia, unspecified; I10 Essential (primary) hypertension; B35.1 Tinea unguium; Z23 Encounter for immunization; Z79.899 Other long term (current) drug therapy | CPT/HCPCS: 90471; 90656; 96127 ==

== ENCOUNTER 2025-05-12 14:37 | Outpatient (AMB) | payer OTHER, SELFPAY ==
--- OUTSIDE RECORDS SUMMARY | 2024-09-14 06:20 | XMS_ITS ---
Author Organization [facility] Address [address] [place] [phone] Care Team Providers Care Mixing Machine Feeder Name Role Phone Lindsey HACKETT, Charisse Primary Care Provider Dina Coronado Jr, Trevon Landa Jyothi HACKETT, Dread Unavailable Unavailable REASON FOR VISIT throat issues Encounters Encounter Location Date Provider Diagnosis [facility] [address] [place] [phone] 09/14/2024 Trevon Coronado Jr Plan Of Treatment No Information Progress Notes * VAENSSA BERTDOB:[birth year] (59 yo F)Acc No.[id number]:09/14/2024 Progress Notes Patient: BERT COOK Provider: Danuta Coronado MD :1965 A ge:58 Y S ex:Female Date:09/14/2024 Address:[address] [place], [place] [id number] Pcp:Charisse Portillo MD Subjective: * Chief Complaints: * 1 . Throat issues. * Medical History: Objective: * Vitals: Assessment: Plan: * Treatment: * * The named appointment provid er may or may not be the originator of this progress note, and it is not deemed complete until electronically signed by the appointment provider. Sign off status: Pending * Provider: Danuta Coronado MD Date: 0 09/14/2024 Generated for Kevin cantu/Janee/eTransmitting on: 07/12/2024 05:45 PM EST
--- OUTSIDE RECORDS SUMMARY | 2025-01-26 10:15 | XMS_ITS ---
Author Organization [facility] Address [address] [place] [address] Care Team Providers Care Radio Communications Superintendent Name Role Phone Lindsey HACKETT, Charisse Roche Primary Care Provider Un available Smith Giles Unavailable [phone] Medications Medication SIG (Take, Route, Frequency, Duration) Notes Start Date End Date Status Ciclopirox 0.77 % 1 application Outboard Motor Tester ally Twice a day; Duration: 365 days Not-Taking Extra Depth Orthopedic Shoes (1 Pair) with Customized Heat Molded Multidensity Innersoles (3 Pair) as directed Dx: NIDDM (E11.9), Hammertoe Foot Deformity (M20.41,M20.42), Preulcerative Skin Lesion(s) (L85.1) 10/27/2024 Active Ozempic Active Vitamin D3 50 MCG (1999) 1 capsule Orally Once a day Active Simvastatin 5 MG 2 tablets in the jaz fuad Orally Once a day Active Lisinopril 2.5 MG 1 tablet Orally Once a day Active Farxiga 10 MG 1 tablet Orally Once a day Active metFORMIN HCl 1000 MG 1 tablet with a me al Orally twice a day Active Encounters Encounter Location Date Provider Diagnosis [facility] [address] [place] [address] 01/26/2025 Smith Giles Plan Of Treatment No Information Progress Notes * Sandra TREJODOB:[birth year] (59 yo F)Acc No.[id number]:01/26/2025 Progress Note Patient: Sanjuana Sandra HOANG Provider: Vipul Giles DPM :1965 A ge:59 Y S ex:Female Date:01/26/2025 Address:[address] [place], [place] [id number] Pcp:Arthur Ross Subjective: * Chief Complaints: * * Medical History: A nxiety, Back,Hip,and Knee pain, type II diabetes, Fibromyalgia, Headaches/Migraines, High blood pressure, Psoriasis/eczema, Chicken pox, Hypercholesterolemia. * Medications: T aking Farxiga 10 MG Tablet 1 tablet Orally Once a day , Taking Lisinopril 2.5 MG Tablet 1 tablet Orally Once a day , Taking metFORMIN HCl 1000 MG Tablet 1 tablet with a meal Orally twice a day , Taking Ozempic , Taking Simvastatin 5 MG Tablet 2 tablets in the evening Orally Once a day , Taking Vitamin D3 50 MCG (1999) Capsule 1 capsule Orally Once a day , Taking Extra Depth Orthopedic Shoes (1 Pair) with Customized Heat Molded Multidensity Innersoles (3 Pair) as directed Dx: NIDDM (E11.9), Hammertoe Foot Deformity (M20.41,M20.42), Preulcerative Skin Lesion(s) (L85.1) , Not-Taking/PRN Ciclopirox 0.77 % Gel 1 application Externally Twice a day Objective: * Vitals: Assessment: Plan: * Treatment: * Images: * The named appointment provid er may or may not be the originator of this progress note, and it is not deemed complete until electronically signed by the appointment provider. Sign off status: Pending * Provider: Vipul Giles DPM Date: 0 01/26/2025 Generated for Kevin cantu/Janee/Joby on: 07/12/2024 05:45 PM EST
[2025-05-12 15:01] VITALS: BMI 33.3
--- NOTE | 2025-05-12 15:01 | A.OFFVIS_ITS ---
Vital Signs 05/12/25 15:01 Height 5 ft 5 in Weight 200 lb BMI 33.3 Intake Visit Reasons: Type 2 Diabetes, Tinea Unguium Intake Note: Sandra is a 59 year old females who presents today as a new patient for a diabetic foot exam and an evaluation of her tinea unguium on bilateral feet. Patient states she last checked her glucose on 05/08/25 and it read 121 and her last known A1c was 6.8%. Patient denies experiencing numbness or tingling and she has no previous medical history of wounds or amputations to her feet. She has had the Tinea unguium for about 1 year and since her her previous beamster refused to prescribe her fungus treatment due to medications she is now no longer taking she has not had any treatment at this time. Allergies No Known Allergies (No Known Allergies*) Allergy (Verified 05/12/25 15:02) Medication List - Last Reconciled 05/12/25 by Judith Cortes DPM acyclovir 5% 1 appl topical 6XD 7 days ammonium lactate 12% 1 appl topical DAILY epinephrine 0.3 mg (0.3 mL) IM Q15M PRN Farxiga (dapagliflozin propanediol) 10 mg PO QAM NS metformin 1,000 mg PO BID 90 days simvastatin 5 mg PO QPM terbinafine HCl 250 mg PO DAILY HPI Comments Details: The patient is a 59-year-old female with a past medical history as seen below presenting with right chronic ankle instability and fungal toenails. The right ankle instability began without a specific injury and is characterized by the ankle giving out, particularly when walking or using stairs. The patient has started physical therapy and uses an ankle brace for support. The fungal toenails have been present for about a year, starting with nail discoloration and thickness. The patient has tried various topical treatments without success. Patient also states she has noticed some interdigital maceration and also cracks and dryness to the bottom of her feet. She denies any other pedal concerns. Patient states she is diabetic and her most recent blood glucose on Saturday was 121 mg/dL. [facility] Medical History (Updated 05/12/25 @ 15:22 by Judith Cortes DPM) Skin fissures Xerosis of skin Maceration of skin Nail dystrophy Nail disorder Onychomycosis Tinea unguium Diabetes mellitus with hyperglycemia Vitamin D deficiency Type 2 diabetes mellitus without complication, with no history of insulin use Post-COVID chronic cough History of COVID-19 Right knee pain Lumbago syndrome Androgenetic alopecia Diabetes mellitus with hyperglycemia, without long-term current use of insulin Essential hypertension Rash of face Iron deficiency anemia Obesity (BMI 30-39.9) Hypercholesterolemia Surgical History Hx of cholecystectomy Hx of tubal ligation Family History Maternal Uncle Substance use disorder Maternal Grandmother Lung cancer Mother CVA (cerebral vascular accident) Social History Housing: House Patient Tobacco Use Status: Never used Tobacco e-Cigarette/Vaping Use: Never Used Second Hand Smoke Exposure: No service: No Current occupational status: employed Cognitive needs: No Hearing needs: No Vision needs: Yes Review of Systems Const Details: - Musculoskeletal: Reports right ankle instability without prior injury. Denies recent trauma or acute pain. - Integumentary: Reports nail discoloration and thickness for one year. Reports interdigital maceration and fissures to plantar aspects of feet. All systems reviewed & are unremarkable except as noted in HPI and below Physical Exam Vital Signs: BMI result Body Mass Index 33.3 Extrem Other: B/L LE Focused Physical Exam: Derm: Xerosis of skin noted to the plantar aspect of the feet with fissures. Interdigital maceration noted bilaterally. Toenails noted to be thickened, discolored, dystrophic with subungual debris x10. No open lesions abrasions or wounds noted. No discoloration or ecchymosis noted. No clinical signs of infection noted. Skin supple and turgor within normal limits. Vascular: DP/PT pulses palpable. Capillary refill time less than 3 seconds. Temperature gradient warm to warm. Pedal hair present. No varicosities noted. No edema noted. Neuro: Protective sensation is grossly intact. MSK: Pain on palpation to the lateral aspect of the right ankle along the ATFL. Negative anterior drawer test. Range of motion of the ankle slightly reduced to the right. No crepitus or fluctuance noted. Mildly antalgic gait unassisted noted. Results Reviewed Results Reviewed: Laboratory Tests 11/05/24 06:30 Fasting Glucose 138 H Estimat Average Glucose 148 Hemoglobin A1c % 6.8 H AST 17 ALT 14 Ordered labs to be performed prior to next visit. Assessment & Plan Assessment & Plan (1) Onychomycosis: Code(s): B35.1 - Tinea unguium Category: Medical (2) Nail disorder: Code(s): L60.9 - Nail disorder, unspecified Category: Medical (3) Maceration of skin: Code(s): L98.8 - Other specified disorders of the skin and subcutaneous tissue Category: Medical (4) Nail dystrophy: Code(s): L60.3 - Nail dystrophy Category: Medical (5) Xerosis of skin: Code(s): L85.3 - Xerosis cutis Category: Medical (6) Skin fissures: Code(s): R23.4 - Changes in skin texture Category: Medical Plan Patient was informed and verbally consented to the use of an ambient scribe for clinic note documentation during this visit. I discussed with the patient the diagnosis of chronic ankle instability and the importance of physical therapy and brace support. We also reviewed the treatment options for onychomycosis, including the potential use of oral antifungal medication. I explained the need for regular liver function monitoring during treatment and the possibility of using topical treatments if needed. Follow-up was scheduled for one month to assess progress and adjust treatment as necessary. - Continue physical therapy for chronic ankle instability and use an ankle brace as needed for support. - Prescribed terbinafine to be taken daily. - Ordered labs to continue monitoring LFTs. - prescribed ammonium lactate to be applied to the plantar aspects of the feet daily. - advised patient to utilize iodine/Betadine swabs in between toes for interdigital maceration. - advised patient to wear supportive shoe gear and avoid barefoot walking. RTC in 1 month. Orders: Orders Comprehensive Met. Panel Today B35.1 - Tinea unguium Complete Blood Count Auto Diff Today B35.1 - Tinea unguium Medications: New ammonium lactate 12% 1 appl topical DAILY 385 grams 0RF L85.3 - Xerosis cutis, R23.4 - Changes in skin texture terbinafine HCl 250 mg PO DAILY 30 tabs 0RF B35.1 - Tinea unguium, L60.3 - Nail dystrophy, L60.9 - Nail disorder, unspecified, L98.8 - Other specified disorders of the skin and subcutaneous tissue Coding Level of Care Code New Pt Level 4 (54677) Diagnoses Onychomycosis B35.1 Nail disorder L60.9 Maceration of skin L98.8 Nail dystrophy L60.3 Xerosis of skin L85.3 Skin fissures R23.4 Time Spent (min) 48
--- OUTSIDE RECORDS SUMMARY | 2025-05-12 17:46 | XMS_ITS | Patient Health Record ---
Author Organization [facility] [place] Address [address] [place] [address] Care Team Providers Care Nurse Technician Name Role Phone Lindsey HACKETT, Charisse Roche Primary Care Provider Un available Tisha Smith Unavailable [phone] Allergies No Known Allergies Results Component Value Reference Range Notes HEMOGLOBIN A1C (GLYCOHEMOGLO BIN) Reviewed date:10/27/2024 10:45:17 AM Interpretation: Performing Lab: Notes/Report: HEMOGLOBIN A1C % (HH) 6.8 Reason For Referral No Information Medications Medication SIG (Take, Route, Frequency, Duration) Notes Start Date End Date Status Ciclopirox 0.77 % 1 application Bag Bleacher ally Twice a day; Duration: 365 days [...] Problem Acquired hammer toe of right foot (842723081866427 5) Other hammer toe(s) (acquired), right foot (M20.41) Active confirmed Problem Acquired hammer toe of left foot (429207661832594 3) Other hammer toe(s) (acquired), left foot (M20.42) Active confirmed Problem Type II diabetes mellitus without complication (904597474) Type 2 diabetes mellitus without complication (E11.9) Active confirmed Vital Signs Blood pressure diastolic 80 mm Hg 10/27/2024 Height 5 ft 5 in in 10/27/2024 Blood pressure systolic 120 mm Hg 10/27/2024 Weight 204 lbs 10/27/2024 BMI 33.94 kg/m2 10/27/2024 Procedures Procedure Date Ordered Date Performed Result Body Sit e 39005-[id number] NAIL, 6 OR MORE 10/27/2024 N/A Encounters Encounter [facility] Date [facility] [address] [facility] Smith Giles Pain in right toe(s) M79.674 ; Tinea unguium B35.1 ; Pain in left toe(s) M79.675 ; Type 2 diabetes mellitus without complication E11.9 ; Other hammer toe(s) (acquired), right foot M20.41 and Other hammer toe(s) (acquired), left foot M20.42 [facility] [address] 01/12/2025 Smith Giles [address] [address] 01/22/2025 Smith Giles Assessments Encounter Date Diagnosis [...] Treatment Pending Test Test Name Order Date [id number] NAIL, 6 OR MORE 10/27/2024 Insurance Providers Payer Name Payer Address Payer Phone Subscriber Number Group Number Insured Name Patient Relationship to Insured Coverage Start Date Coverage End Date [facility] [address] [place] [address] [id number] Varghese Beasley Spouse - patient is the spouse of the insured Medical (General) History Medical History History ICD Code Anxiety Back,Hip,and Knee pain type II diabetes Fibromyalgia Headaches/Migraines High blood pressure Psoriasis/eczema Chicken pox Hypercholesterolemia Surgical History Surgery Date(Month/Year) tubal ligation 06/04/2001
--- OUTSIDE RECORDS SUMMARY | 2025-05-12 17:46 | XMS_ITS | Patient Health Record ---
Author Organization [facility] Address [address] [place] [address] Care Team Providers Care Ink Blender Name Role Phone Lindsey HACKETT, Charisse Primary Care Provider Trevon Sy Jr Unavailable [phone] Jyothi HACKETT, Dread Unavailable Unavailable Allergies No Known Allergies Results Component Value Reference Range Notes H pylori Ag Stool Reviewed date:07/28/2024 03:04:36 PM Interpretation: Performing Lab:[facility], [address] [place] [id number] Notes/Report: H pylori Ag Stool SEE NOTE HELICOBACTER PYLORI AG, EIA, STOOL Micro Number: [id number] Test Status: Final Specimen Source: Stool Specimen [...] Not Detected THIS TEST WAS PERFORMED AT: [facility] [address] [place] [id number] VLAD LEMON MD Reason For Referral No Information Medications Medication SIG (Take, Route, Frequency, Duration) Notes Start Date End Date Status Zepbound 2.5 MG/0.5ML INJECT 1 SYRINGE SUBCUTANEOUSLY ONCE A WEEK FOR 4 WEEKS Subcutaneous; Duration: 28 65,Unavail able Active Minoxidil 2.5 MG Oral; Duration: 90 Active Spironolactone 50 MG TAKE 1 TABLET BY [facility] TWICE DAILY Oral; Duration: 30 L661,Unavail able [...] W/U Status Risk Notes Problem Oropharyngeal dysphagia ([id number]) Oropharyngeal dysphagia (R13.12) Active confirmed Problem Abnormal UGI series (R93.3) Active confirmed Vital Signs Temperature 97.5 degrees Fahrenheit 06/24/2024 Blood pressure diastolic 00 mm Hg 06/24/2024 Height 5 ft 5 in in 06/24/2024 Blood pressure systolic 000 mm Hg 06/24/2024 Weight 211 lb 8 oz lbs 06/24/2024 BMI 35.19 kg/m2 06/24/2024 Encounters Encounter Location Date Provider Diagnosis [facility] [address] [place] [phone] 06/24/2024 Trevon Coronado Jr Oropharyngeal dysphagia R13.12 and Abnormal UGI series R93.3 [facility] [address] [place] [phone] 07/28/2024 Trevon Coronado Jr Assessments Encounter Date [...] information on [facility]. We also recommended stool testing for H. [...] information on [facility]. We also recommended stool testing for H. pylori. If this is positive, treatment should be considered based on the findings on her upper GI series. Plan Of Treatment Pending Test Test Name Order Date H PYLORI AG, STOOL 06/24/2024 Insurance Providers Payer Name Payer Address Payer Phone Subscriber Number Group Number Insured Name Patient Relationship to Insured Coverage Start Date Coverage End Date [facility] [address] [place] [address] [id number] BERT MENDEZ Self - patient is the insured Medical (General) History Medical History History ICD Code Diabetes mellitus type 2 Hypertension Hyperlipidemia Arthritis/fibromyalgia Alopecia Vertical Elevated body mass index Stool DNA testing -05/29 negative result Surgical History Surgery Date(Month/Year) Cholecystectomy Tubal ligation
== END 2025-05-12 15:23 | disposition home or self-care (01) ==
LOC: HO.HPODS 14:37
PROVIDERS: PCP Internal Medicine; Visit Provider Student in an Organized Health Care Education/Training Program
DX: B35.1 Tinea unguium (principal); L60.9 Nail disorder, unspecified; L98.8 Other specified disorders of the skin and subcutaneous tissue; L60.3 Nail dystrophy; L85.3 Xerosis cutis; R23.4 Changes in skin texture
CPT/HCPCS: 99204